=== PATIENT | male | born 1935 | race Caucasian/White ===

== ENCOUNTER → 2018-10-30 13:56 | Outpatient (POV) | payer MEDICARE, SELFPAY ==
[2018-10-30 14:16] VITALS: BP 141/77; PULSE 64; RESP 18; O2SAT 98; BMI 22.0
--- NOTE | 2018-10-30 15:08 | HMH.PMCON ---
Assessment and Plan (1) Lumbar back pain Current visit: Yes Status: Chronic Category: Medical Code(s): M54.5 - Low back pain - Assessment and plan all Dx Assessment and Plan for all problems:: After reviewing the patient's imaging and his efficacy with previous epidural injection, I think he would benefit from a lumbar epidural steroid injection. The patient is not on any anticoagulation therapy. We will schedule him for lumbar epidural steroid injection at L4 and L5. We will follow-up with him after the procedure and reassess his symptoms at that time. He will continue at home stretching program and anti-inflammatories. He is been instructed to call the office if he has any concerns prior to his next appointment. Dr. Maldonado has reviewed this note and agrees with this plan of care. This note was dictated using voice recognition software and make contain errors or omissions. HPI - Data of Consult Patient: new to practice Consult date: 10/30/18 Requesting Physician: Marlen Singer APRN Primary Care Provider: Samuel Mars - Consult Narrative Reason for consult: Back pain History of present illness: Mr. Lugo is a 83 year old male who presents today for referral from [facility]. Patient complains of low back pain radiating into his bilateral lower extremities. Patient says the pain is worse with standing and ambulating and improves with sitting. Patient does rate his pain an 8 out of 10 today. He states I thought I was seeing Dr. Maldonado today to get injective therapy . Patient says he has had epidural steroid injections in the past and they have been effective, along with RFA's. The patient says that he got 90% relief with epidural steroid injection, but the pain did return. Patient has tried physical therapy, ice and heat therapies, TENS unit, and had no relief. The patient is not on any anticoagulation therapy. CC: Marlen Singer APRN [facility] History I have reviewed the patient's past medical history: Yes Medical History: Reports:: Atrial Fibrillation, Myocardial Infarction Denies:: Diabetes Mellitus Type 1, Diabetes Mellitus Type 2 *Have you ever received a pneumonia vaccine?: Yes *Have you received a flu vaccine this season?: Yes Laterality Cases: Left: Arthroscopy Hip Other Surgeries: Yes: CABG, Open Heart Surgery - *Social History Smoking Status: Current every day smoker Tobacco Type: cigarettes # Packs/Day (cigarettes): 1 Alcohol Intake: never *Occupational Status:: other Housing: house Household Members: other *Travel in the last 8 weeks: None Family Hx:: Unable to obtain Review of Systems - Review of Systems Review of Systems General: No recent weight changes, no fever, no sleep disturbances Respiratory: No cough, no shortness of air, no recurring pulmonary infections Cardiovascular/peripheral vascular: No chest pain, no palpitations, no edema, no shortness of breath Gastrointestinal: No new onset incontinence, normal bowel movements reported Genitourinary: No new onset incontinence Musculoskeletal: Back pain, leg pain Psychiatric: Normal mood/affect Neurological: [Denies weakness in extremities], [denies balance issues] Meds Home Medications Medication Instructions Recorded Confirmed Type Aspirin [Aspir 81] 81 mg PO DAILY 10/30/18 10/30/18 History Atorvastatin Calcium [Atorvastatin 40 mg PO DAILY 10/30/18 10/30/18 History 40mg Tab] Carvedilol [Carvedilol 12.5mg Tab] 12.5 mg PO DAILY 10/30/18 10/30/18 History Hydrocodone/Acetaminophen 1 tab PO DAILY 10/30/18 10/30/18 History [Hydrocodone-Acetamin 7.5-325] Allergies Allergy/AdvReac Type Severity Reaction Status Date / Time Penicillins [PENICILLINS] Allergy Unknown Unverified 03/29/17 14:16 Sulfa (Sulfonamide Allergy Unknown Unverified 03/29/17 14:16 Antibiotics) [SULFA (SULFONAMIDE ANTIBIOTICS)] Objective Vital signs: Pulse Resp BP Pulse Ox 64 18 141/77 H 98 10/30
--- NOTE | 2018-10-30 15:12 | P.CONS_ITS ---
Assessment and Plan (1) Lumbar back pain Current visit: Yes Status: Chronic Category: Medical Code(s): M54.5 - Low back pain - Assessment and plan all Dx Assessment and Plan for all problems:: After reviewing the patient's imaging and his efficacy with previous epidural injection, I think he would benefit from a lumbar epidural steroid injection. The patient is not on any anticoagulation therapy. We will schedule him for lumbar epidural steroid injection at L4 and L5. We will follow-up with him after the procedure and reassess his symptoms at that time. He will continue at home stretching program and anti-inflammatories. He is been instructed to call the office if he has any concerns prior to his next appointment. Dr. Maldonado has reviewed this note and agrees with this plan of care. This note was dictated using voice recognition software and make contain errors or omissions. HPI - Data of Consult Patient: new to practice Consult date: 10/30/18 Requesting Physician: Marlen Singer APRN Primary Care Provider: Samuel Mars - Consult Narrative Reason for consult: Back pain History of present illness: Mr. Lugo is a 83 year old male who presents today for referral from Juan Carlos woodard. Patient complains of low back pain radiating into his bilateral lower extremities. Patient says the pain is worse with standing and ambulating and improves with sitting. Patient does rate his pain an 8 out of 10 today. He states I thought I was seeing Dr. Maldonado today to get injective therapy . Patient says he has had epidural steroid injections in the past and they have been effective, along with RFA's. The patient says that he got 90% relief with epidural steroid injection, but the pain did return. Patient has tried physical therapy, ice and heat therapies, TENS unit, and had no relief. The patient is not on any anticoagulation therapy. CC: Marlen Singer APRN [facility] History I have reviewed the patient's past medical history: Yes Medical History: Reports:: Atrial Fibrillation, Myocardial Infarction Denies:: Diabetes Mellitus Type 1, Diabetes Mellitus Type 2 *Have you ever received a pneumonia vaccine?: Yes *Have you received a flu vaccine this season?: Yes Laterality Cases: Left: Arthroscopy Hip Other Surgeries: Yes: CABG, Open Heart Surgery - *Social History Smoking Status: Current every day smoker Tobacco Type: cigarettes # Packs/Day (cigarettes): 1 Alcohol Intake: never *Occupational Status:: other Housing: house Household Members: other *Travel in the last 8 weeks: None Family Hx:: Unable to obtain Review of Systems - Review of Systems Review of Systems General: No recent weight changes, no fever, no sleep disturbances Respiratory: No cough, no shortness of air, no recurring pulmonary infections Cardiovascular/peripheral vascular: No chest pain, no palpitations, no edema, no shortness of breath Gastrointestinal: No new onset incontinence, normal bowel movements reported Genitourinary: No new onset incontinence Musculoskeletal: Back pain, leg pain Psychiatric: Normal mood/affect Neurological: [Denies weakness in extremities], [denies balance issues] Meds Home Medications Medication Instructions Recorded Confirmed Type Aspirin [Aspir 81] 81 mg PO DAILY 10/30/18 10/30/18 History Atorvastatin Calcium [Atorvastatin 40 mg PO DAILY 10/30/18 10/30/18 History 40mg Tab] Carvedilol [Carvedilol 12.5mg Tab] 12.5 mg PO DAILY 10/30/18 10/30/18 History Hy
== END ==
PROVIDERS: PCP Internal Medicine; Visit Provider Clinical Nurse Specialist Family Health
DX: M54.5 Low back pain (principal)
CPT/HCPCS: 99202

== ENCOUNTER 2019-12-18 09:20 | Emergency (ER) | payer MEDICARE, MEDICAID, SELFPAY ==
[2019-12-18] VITALS (11 sets, daily range): BP systolic 111–204; BP diastolic 76–96; PULSE 58–80; RESP 20–24; TEMP 36.9; O2SAT 87–98; BMI 20.9
--- NOTE | 2019-12-18 09:36 | XR_ITS ---
PROCEDURE: XR CHEST PORTABLE CLINICAL HISTORY: SOA Shortness of air COMPARISON: CT CT ANGIO CHEST from 12/18/2019 FINDINGS: Prior CABG with mild cardiomegaly. Extensive biapical pleural thickening left more extensive than right with scattered calcified granulomas. No lobar consolidation or collapse. No acute bony abnormalities. IMPRESSION: Biapical pleural thickening left greater than right with chronic changes Dictated by: Michoacano De León MD 12/18/2019 12:06 Michoacano De León MD in [place] 12/18/2019 12:06
--- NOTE | 2019-12-18 09:38 | PC.NURSE ---
notified rad of chest xray, spoke with ngozi
--- NOTE | 2019-12-18 09:44 | PC.NURSE ---
rad at [facility] for portable xray
--- NOTE | 2019-12-18 09:47 | PC.NURSE ---
pt reports pt is scheduled to see a Day Treatment Clinician/Art Therapist (Dr. Pisano) on Jan 01, states this will be an initial visit for pt.
[2019-12-18 09:49] LABS: Basophils % 0.2 % (0.1-2.0); Eosinophils # 0.3 K/mm3 (0.0-0.4); Eosinophils % 1.9 % (0.1-12.0); Hemoglobin 13.8 g/dL (14.1-18.0); Lymphocytes # 2.8 K/mm3 (0.7-4.5); Lymphocytes % 19.5 % (10-50); Mean Corpuscular HGB Conc 33.6 g/dL (31.8-35.4); Mean Corpuscular Hemoglobin 31.7 pg (27.0-31.2); Mean Corpuscular Volume 94.3 fl (80-94); Mean Platelet Volume 7.6 fl (7.4-10.4); Monocytes # 1.1 K/mm3 (0.1-1.0); Monocytes % 7.6 % (1.7-9.3); Neutrophils # 10.2 K/mm3 (1.8-7.8); Neutrophils % 70.9 % (37.0-80.0); Platelet Count 275 K/mm3 (142-424); Red Blood Count 4.34 M/mm3 (4.60-6.20); Red Cell Distribution Width 13.7 % (11.5-17.5); White Blood Count 14.3 K/mm3 (4.8-10.8)
[2019-12-18 09:55] LABS: Alanine Aminotransferase 16 U/L (12-78); Albumin Level 4.2 g/dl (3.5-5.0); Albumin/Globulin Ratio 1.3 (1.1-1.8); Alkaline Phosphatase 133 U/L (38-126); Anion Gap 12.8 mEq/L (5-15); Aspartate Amino Transferase 24 U/L (17-59); Bilirubin,Total 0.6 mg/dl (0.2-1.3); Blood Urea Nitrogen 20 mg/dl (9-20); Carbon Dioxide 32 mmol/L (22.0-30.0); Chloride 100 mmol/L (98-107); Creatinine Clearance Estimated 37 mL/min (50-200); Estimated Glomerular Filt Rate 48 ml/min (>60); GFR (African American) 59 ML/MIN (>60); Globulin 3.3 g/dL (1.3-3.2); Glucose 101 mg/dl (74-100); Potassium 3.8 mmoL/L (3.5-5.1); Sodium 141 mmol/L (136-145); Total Protein,Serum 7.5 g/dl (6.3-8.2)
[2019-12-18 09:57] LABS: Lactic Acid 1.3 mmol/L (0.7-2.1)
[2019-12-18 10:06] LABS: Troponin I 0.02 ng/ml (0.00-0.034)
--- NOTE | 2019-12-18 10:15 | CT_ITS ---
PROCEDURE: CT ANGIO CHEST CLINCIAL INDICATION: SOB COMPARISON: CT ABDPELW/O CT ABD PELVIS W/O CONTRAST from 06/02/2016 TECHNIQUE: IV Contrast: 70ML OPTIRAY 350 Axial images obtained with sagittal and coronal reformats. All CT scans at the facility use one or more dose reduction, viz: automated exposure control, ma/kV adjustment per patient size (including targeted exams where dose is matched to indication, i.e. head), or iterative reconstruction technique. FINDINGS: HEART AND MEDIASTINAL STRUCTURES: No evidence aortic aneurysm or dissection. There is diffuse coronary artery calcification. There are atheromatous changes involving the aortic arch and descending thoracic aorta with some shallow ulcerations. No evidence of pulmonary embolus. There has been a prior CABG. LUNGS AND PLEURAL SPACES: There is bi apical pleural thickening with consolidation in the lung apices which may be chronic. There are scattered areas of pleural and parenchymal opacities with subpleural in sub pleural thickening. There is some hilar retraction on the left. Scarring is present in the lung bases is well. There is a small cavity in the left apex medially at 1.6 cm. No pleural effusions. There is mild diffuse bronchial thickening. Patchy infiltrate is present in the left upper lobe posteriorly along the major fissure. Calcified granuloma is present in the right lower lobe and calcified granulomas are present in the right upper lobe. 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 UPPER ABDOMEN: There is mild dilatation of the upper abdominal aorta incompletely imaged measuring 2.5 cm. ADDITIONAL FINDINGS: No other significant abnormalities. IMPRESSION: 1. No evidence of aortic aneurysm dissection or pulmonary embolus. 2. Atheromatous changes of the thoracic aorta with scattered shallow ulcers and mild dilatation of the upper abdominal aorta at 2.5 cm incompletely imaged. 3. Pulmonary fibrosis with biapical pleural parenchymal thickening and left-sided hilar retraction with scattered areas of scarring. 4. Small cavity in the left apex medially of an determined etiology 5. Patchy infiltrate in the left upper lobe posteriorly. Dictated by: Michoacano De León MD 12/18/2019 12:04 Michoacano De León MD in [facility] 12/18/2019 12:04
--- NOTE | 2019-12-18 10:19 | PC.NURSE ---
notified rad of CT order notified RT of neb treatment order
--- NOTE | 2019-12-18 10:22 | HMH.EDPSOB ---
ED Disposition Clinical Impression: Acute exacerbation of chronic obstructive airways disease, Acute exacerbation of chronic obstructive pulmonary disease (COPD) Disposition: Still a Patient Condition on Discharge: Good Instructions: DI for Chronic Bronchitis Prescriptions: Azithromycin 250 mg PO DAILY 5 Days #6 tab Prescription Printed Ipratropium/Albuterol Sulfate [Duoneb 3mL neb] 3 ml IH Q6H 10 Days #90 neb Prescription Printed methylPREDNISolone [Medrol 4mg tab] 4 mg PO DIRECTED #21 tab Prescription Printed Cefdinir [Omnicef 300mg Capsule] 300 mg PO BID 10 Days #20 cap Prescription Printed Referrals: Samuel Mars [Primary Care Provider] - - Critical Care Critical Care Time: No Attestation: On 12/18/19, the high probability of a clinically significant, sudden or life threatening deterioration of the following system(s) required my full and direct attention, intervention and personal management. The time I documented below is in addition to time spent performing reported procedures but includes the following listed in this critical care notation. Medical Decision Making - Medical Records Medical records reviewed: Yes: I reviewed the patient's medical records. - Amadeo Inquiry Pt receiving controlled substance: No Vital Signs: 12/18/19 09:23 12/18/19 09:42 12/18/19 10:27 Temperature 98.5 F Temperature Source Oral Pulse Rate Pulse Rate [Right Radial] 63 77 Respiratory Rate 24 Blood Pressure [Right Arm] 133/93 H 150/91 H Blood Pressure Mean [Right Arm] 106 110 Blood Pressure Source [Right Arm] Automatic Cuff Automatic Cuff Blood Pressure Position [Right Arm] Sitting Sitting 02 Sat by Pulse Oximetry 93 L 98 96 Oxygen Delivery Method Room Air Nasal Cannula Nasal Cannula Oxygen Flow Rate (LPM) 2 2 12/18/19 10:30 12/18/19 10:35 12/18/19 11:16 Temperature Temperature Source Pulse Rate 63 Pulse Rate [Right Radial] 65 58 L Respiratory Rate Blood Pressure [Right Arm] 150/91 H 161/87 H Blood Pressure Mean [Right Arm] 110 111 Blood Pressure Source [Right Arm] Automatic Cuff Automatic Cuff Blood Pressure Position [Right Arm] Sitting Sitting 02 Sat by Pulse Oximetry 97 98 Oxygen Delivery Method Nasal Cannula Nasal Cannula Oxygen Flow Rate (LPM) 2 12/18/19 12:38 Temperature Temperature Source Pulse Rate Pulse Rate [Right Radial] 70 Respiratory Rate Blood Pressure [Right Arm] 204/95 H Blood Pressure Mean [Right Arm] 131 Blood Pressure Source [Right Arm] Automatic Cuff Blood Pressure Position [Right Arm] Sitting 02 Sat by Pulse Oximetry 92 L Oxygen Delivery Method Room Air Oxygen Flow Rate (LPM) - Lab Data Lab results reviewed: Yes: I reviewed the patient's lab results. Lab Results 12/18/19 09:30: WBC 14.3 H, RBC 4.34 L, Hgb 13.8 L, Hct 41.0 L, MCV 94.3 H, MCH 31.7 H, MCHC 33.6, RDW 13.7, Plt Count 275, MPV 7.6, Neut % (Auto) 70.9, Lymph % (Auto) 19.5, [place] % (Auto) 7.6, Eos % (Auto) 1.9, Baso % (Auto) 0.2, Neut # (Auto) 10.2 H, Lymph # (Auto) 2.8, [place] # (Auto) 1.1 H, Eos # (Auto) 0.3, Baso # (Auto) 0.0 12/18/19 09:30: Sodium 141, Potassium 3.8, Chloride 100, Carbon Dioxide 32 H, Anion Gap 12.8, BUN 20, Creatinine 1.40 H, Estimated Creat Clear 37, Estimated GFR 48 L, Est GFR ( Amer) 59, Glucose 101 H, Calcium 9.0, Total Bilirubin 0.6, AST 24, ALT 16, Alkaline Phosphatase 133 H, Troponin I 0.02, Total Protein 7.5, Albumin 4.2, Globulin 3.3 H, Albumin/Globulin Ratio 1.3 12/18/19 09:30: Lactate 1.3 12/18/19 09:30: SARS-CoV-2 IgG Ab (Rapid) Negative, SARS-CoV-2 IgM Ab (Rapid) Negative Result diagrams: 12/18/19 09:30 12/18/19 09:30 Orders (Tests/Meds): ED MEDICATIONS Generic Name Dose Route Start Last Admin Trade Name Freq PRN Reason Stop Dose Admin Sodium Chloride 500 mls @ 500 mls/hr 12/18/19 12:00 12/18/19 11:54 Sod Chlor 0.9% 500ml Bag IV 01/17/20 11:59 500 mls/hr .Q1H ZARINA Administration Ceftriaxone Sodium 1
--- NOTE | 2019-12-18 10:23 | ECG_ITS ---
APPROVED REPORT Exam: Resting ECG HR:59 bpm ECG Measurements Heart Rate 59 AXES MA 134 P 76 QRSd 92 QRS 41 QT 404 T 37 QTc 399 <Conclusion> Sinus bradycardia,Motion Artifact Otherwise normal ECG Electronically signed by : Cosmo Riggs, 12/18/2019 12:25:22
--- NOTE | 2019-12-18 10:31 | PC.NURSE ---
RESP HERE DOING DUO NEB
[2019-12-18 11:05] LABS: Coronavirus 19 IgG Antibody Negative (Negative); Coronavirus 19 IgM Antibody Negative (Negative)
--- NOTE | 2019-12-18 11:21 | PC.NURSE ---
Pt to rad.
--- NOTE | 2019-12-18 11:42 | PC.NURSE ---
pt return from radiology
--- NOTE | 2019-12-18 11:49 | PC.NURSE ---
Maame in radiology called requesting pt have IV fluids r/t creatinine and pt getting IV contrast. Notified ER MD, gave verbal order for IV fluids
--- NOTE | 2019-12-18 12:24 | PC.NURSE ---
notified ER pt CT result is in the computer
--- NOTE | 2019-12-18 12:44 | PC.NURSE ---
notified ER MD of pt BP, pt reports he took his medication this morning, states does not feel like his bp is up. No new orders obtained at this time will continue to monitor
--- NOTE | 2019-12-18 13:18 | PC.NURSE ---
Yuliet from care management at discussing home oxygen use with pt.
--- NOTE | 2019-12-18 13:20 | PC.NURSE ---
care management in with pt.
--- NOTE | 2019-12-18 13:38 | SW/DCPLANNER ---
Addendum entered by Yuliet [place] 12/18/19 15:18: Patient information was faxed to Monse Mohr at [facility] and she has stated information has been reviewed and oxygen will be delivered to patient in ED. Patient will discharge home from ED once o2 is delivered. Addendum entered by Yuliet [place] 12/18/19 14:48: Patient now has a qualifying room air at 87%. Sanjuana Stovall has stated that patient will need to change to outpatient setting and respiratory will read room air sat and we can then set patient up with home O2. Addendum entered by Yuliet [place] 12/18/19 14:26: I have spoke with Sanjuana Stovall and she has stated that she spoke with Radha at [facility] and once patient is discharged from ED: have ED MD put in order for an outpatient 6 minute walk test, send patient upstairs to register and complete walk test as an outpatient, if sats qualify Respiratory Dept will fax information to [facility] to order home O2 and if patient does NOT qualify then patients can pick pulling machine tender private pay home O2 at [facility] as explained earlier. Addendum entered by Yuliet [place] 12/18/19 14:05: Per ED staff (Kesha) patients has not had a room air below 90-92%. I have faxed patient information to [facility] and Monse Villalba has already spoke with patients regarding private pay. Original Note: I have spoke with [facility] regarding ordering home O2 for this patient. Jill/Monse Mohr with [facility] has stated that home O2 can NOT be ordered from Emergency Department and must go through their family MD. Patients family MD is out of [place]. Randy Mohr have stated that another option would be private pay for home concentrator $70/month and tank system $25/month. I have spoke with patient and his family regarding home O2. I had a lengthy conversation with patient and his regarding oxygen. I explained that patient can private pay for home O2 and/or make a follow up appointment with family MD to be ordered. I did provide family with pricing for private pay O2 and [facility] contact information. I have also explained this situation to ER MD and ER staff (Kesha).
--- NOTE | 2019-12-18 14:29 | PC.NURSE ---
spoke with rosanne in care management about outpatient 6 minute walk test after being discharged from the ER and pt will go to register for this an outpatient. information relayed to ER MD, ER MD is agreeable to plan
== END 2019-12-18 14:56 | disposition home or self-care (01) ==
PROVIDERS: Emergency Provider Family Medicine; PCP Internal Medicine
DX: J44.1 Chronic obstructive pulmonary disease with (acute) exacerbation (principal); Z01.84 Encounter for antibody response examination; I10 Essential (primary) hypertension; E78.5 Hyperlipidemia, unspecified; Z88.0 Allergy status to penicillin; Z88.5 Allergy status to narcotic agent
CPT/HCPCS: 71045; 71275; 80053; 83605; 84484; 85025; 86328; 87040; 93005; 96365; 96367; 96375; 99284; J0456; Q9967

== ENCOUNTER → 2019-12-18 15:16 | Outpatient (CLI) | payer MEDICARE, MEDICAID, SELFPAY ==
[2019-12-18 15:20] VITALS: O2SAT 87
== END ==
PROVIDERS: PCP Internal Medicine; Visit Provider Family Medicine
DX: R09.02 Hypoxemia (principal)

== ENCOUNTER 2020-07-12 08:51 | Emergency (ER) | payer MEDICARE, SELFPAY ==
[2020-07-12 08:52] VITALS: BP 104/104; PULSE 72; RESP 20; TEMP 36.6; O2SAT 89; BMI 19.9
--- NOTE | 2020-07-12 09:02 | ECG_ITS ---
APPROVED REPORT Exam: Resting ECG HR:73 bpm ECG Measurements Heart Rate 73 AXES IA 156 P 78 QRSd 90 QRS 65 QT 382 T 68 QTc 420 Conclusion Sinus rhythm with marked sinus arrhythmia with occasional premature ventricular complexes Otherwise normal ECG Electronically signed by : Ziggy Plascencia, 07/12/2020 14:39:04
--- NOTE | 2020-07-12 09:17 | XR_ITS ---
PROCEDURE: XR CHEST PORTABLE CLINICAL HISTORY: soa COMPARISON: CT CT ANGIO CHEST from 12/18/2019 CR XR CHEST PORTABLE from 12/18/2019 FINDINGS: There is hyperexpansion lung rose. There is prominent bilateral apical pleural scarring more prominent left side than right. Is mild parenchymal scarring right suprahilar region and right upper lobe. There is a partially calcified granuloma right perihilar region. There is no definite acute infiltrate seen. Cardiac size is normal, there are sternal wire sutures noted. IMPRESSION: Mild COPD with prominent bilateral apical pleural scarring with mild scarring right upper lobe as well, doubt acute chest pathology Dictated by: Dr. Sulaiman Mott MD 07/12/2020 09:39 Dr. Sulaiman Mott MD in [facility] 07/12/2020 09:39
[2020-07-12 09:32] VITALS: BP 147/98; PULSE 68; RESP 18; TEMP 36.6; O2SAT 95
--- NOTE | 2020-07-12 09:33 | HMH.EDGENADL ---
ED Disposition Clinical Impression: COPD exacerbation, Acute exacerbation of chronic obstructive airways disease Disposition: Home, Self-Care Condition on Discharge: Fair Instructions: DI for Chronic Obstructive Pulmonary Disease, DI for Shortness of Breath Additional Instructions: Please continue to use your albuterol inhaler as needed for shortness of breath. Please ensure to use 8 puffs to make it 1 breathing treatment. Please follow-up with your PCP in 3 to 5 days to ensure that your symptoms have improved Please take your medication as prescribed and if symptoms persist or worsen, if you continue to not improve or are having a harder time breathing, please return to the ED for further management Prescriptions: predniSONE [Prednisone 50mg Tab] 50 mg PO DAILY 5 Days #5 tab Prescription Printed Referrals: Samuel Mars [Primary Care Provider] - - Critical Care Critical Care Time: No Attestation: On 07/12/20, the high probability of a clinically significant, sudden or life threatening deterioration of the following system(s) required my full and direct attention, intervention and personal management. The time I documented below is in addition to time spent performing reported procedures but includes the following listed in this critical care notation. Medical Decision Making - Medical Records Medical records reviewed: Yes: I reviewed the patient's medical records. - Amadeo Inquiry Pt receiving controlled substance: No Vital Signs: 07/12/20 08:52 07/12/20 09:32 07/12/20 10:05 Temperature 97.9 F 97.9 F Temperature Source Oral Pulse Rate 68 66 Pulse Rate [Left Radial] 72 Respiratory Rate 20 18 16 Blood Pressure 147/98 H 161/82 H Blood Pressure [Right Arm] 104/104 L Blood Pressure Mean [Right Arm] 104 Blood Pressure Source Automatic Cuff Automatic Cuff Blood Pressure Source [Right Arm] Automatic Cuff Blood Pressure Position [Right Arm] Sitting 02 Sat by Pulse Oximetry 89 L 95 96 Oxygen Delivery Method Room Air Nasal Cannula Oxygen Flow Rate (LPM) 96 - Lab Data Lab Results 07/12/20 09:15: WBC 8.2, RBC 4.13 L, Hgb 12.2 L, Hct 40.7 L, MCV 98.4 H, MCH 29.5, MCHC 30.0 L, RDW 13.5, Plt Count 258, MPV 7.2 L, Neut % (Auto) 63.6, Lymph % (Auto) 22.2, [place] % (Auto) 5.4, Eos % (Auto) 7.5, Baso % (Auto) 1.3, Neut # (Auto) 5.2, Lymph # (Auto) 1.8, [place] # (Auto) 0.5, Eos # (Auto) 0.6 H, Baso # (Auto) 0.1 07/12/20 09:15: Sodium 141, Potassium 4.5, Chloride 104, Carbon Dioxide 30, Anion Gap 11.5, BUN 12, Creatinine 1.40 H, Estimated Creat Clear 35, Estimated GFR 48 L, Est GFR ( Amer) 58 L, Glucose 100, Calcium 9.0, Total Bilirubin 0.4, AST 20, ALT 8 L, Alkaline Phosphatase 122, Troponin I < 0.01, Total Protein 7.5, Albumin 4.4, Globulin 3.1, Albumin/Globulin Ratio 1.4 07/12/20 09:46: VBG pH 7.24 L, VBG pCO2 68.7 H, VBG pO2 27.8 L, VBG HCO3 28.8, VBG Total CO2 30.9 H, VBG O2 Saturation 51.2, VBG Base Excess 1.4 Result diagrams: 07/12/20 09:15 07/12/20 09:15 Orders (Tests/Meds): ED MEDICATIONS Generic Name Dose Route Start Last Admin Trade Name Freq PRN Reason Stop Dose Admin Methylprednisolone Sodium Succinate 125 mg 07/12/20 09:30 07/12/20 09:27 Methylprednisolone Sod Succ 125mg Vial IV 08/11/20 09:29 125 mg Q12H ZARINA Administration Discontinued Medications Generic Name Dose Route Start Last Admin Trade Name Freq PRN Reason Stop Dose Admin Albuterol/Ipratropium 8 puff 07/12/20 09:19 07/12/20 09:50 Combivent 20mcg/100mcg Respimat Inhaler IH 07/12/20 09:20 8 puff ONCE ONE Administration Miscellaneous 1 unit 07/12/20 09:19 Aerochamber/Optihaler MC 07/12/20 09:20 ONCE ONE ORDERS Category Date Time Status Troponin I Q3H Lab 07/12/20 12:30 Ordered Troponin I Q3H Lab 07/12/20 15:30 Ordered Medical Decision Narrative: Patient is an 85-year-old male with a history of COPD presenting with 1 week of shortness of breath and diffuse wheezes o
[2020-07-12 09:49] LABS: Basophils # 0.1 K/mm3 (0-0.2); Basophils % 1.3 % (0.1-2.0); Eosinophils # 0.6 K/mm3 (0.0-0.4); Eosinophils % 7.5 % (0.1-12.0); Hematocrit 40.7 % (42.0-52.0); Hemoglobin 12.2 g/dL (14.1-18.0); Lymphocytes # 1.8 K/mm3 (0.7-4.5); Lymphocytes % 22.2 % (10-50); Mean Corpuscular Hemoglobin 29.5 pg (27.0-31.2); Mean Corpuscular Volume 98.4 fl (80-94); Mean Platelet Volume 7.2 fl (7.4-10.4); Monocytes # 0.5 K/mm3 (0.1-1.0); Monocytes % 5.4 % (1.7-9.3); Neutrophils # 5.2 K/mm3 (1.8-7.8); Neutrophils % 63.6 % (37.0-80.0); Platelet Count 258 K/mm3 (142-424); Red Blood Count 4.13 M/mm3 (4.60-6.20); Red Cell Distribution Width 13.5 % (11.5-17.5); White Blood Count 8.2 K/mm3 (4.8-10.8)
[2020-07-12 09:52] LABS: Chloride 104 mmol/L (98-107); Sodium 141 mmol/L (136-145)
[2020-07-12 09:53] LABS: Potassium 4.5 mmoL/L (3.5-5.1)
[2020-07-12 09:55] LABS: Alanine Aminotransferase 8 U/L (12-78); Alkaline Phosphatase 122 U/L (38-126); Anion Gap 11.5 mEq/L (5-15); Aspartate Amino Transferase 20 U/L (17-59); Bilirubin,Total 0.4 mg/dl (0.2-1.3); Blood Urea Nitrogen 12 mg/dl (9-20); Carbon Dioxide 30 mmol/L (22.0-30.0); Creatinine Clearance Estimated 35 mL/min (50-200); Estimated Glomerular Filt Rate 48 ml/min (>60); GFR (African American) 58 ML/MIN (>60)
[2020-07-12 09:56] LABS: Albumin Level 4.4 g/dl (3.5-5.0); Albumin/Globulin Ratio 1.4 (1.1-1.8); Globulin 3.1 g/dL (1.3-3.2); Glucose 100 mg/dl (74-100); Total Protein,Serum 7.5 g/dl (6.3-8.2)
[2020-07-12 10:03] LABS: VBG Base Excess 1.4 mmol/L (-2.4-2.3); VBG HCO3 28.8 mmol/L (23-30); VBG Oxygen Saturation 51.2 % (50-70); VBG PCO2 68.7 mmol/L (35-51); VBG PH 7.24 mmol/L (7.31-7.41); VBG PO2 27.8 mmol/L (28-40); VBG Total CO2 30.9 mmol/L (23-27)
[2020-07-12 10:05] VITALS: BP 161/82; PULSE 66; RESP 16; O2SAT 96
[2020-07-12 10:11] LABS: Troponin I < 0.01 ng/ml (0.00-0.034)
--- NOTE | 2020-07-12 10:21 | PC.NURSE ---
dr on the phone with dr. knight about admit
[2020-07-12 11:15] VITALS: BP 122/96; PULSE 69; RESP 20; TEMP 36.6; O2SAT 96
== END 2020-07-12 11:17 | disposition home or self-care (01) ==
PROVIDERS: Emergency Provider Emergency Medicine; PCP Internal Medicine
DX: J44.1 Chronic obstructive pulmonary disease with (acute) exacerbation (principal); I10 Essential (primary) hypertension; E78.5 Hyperlipidemia, unspecified; I25.2 Old myocardial infarction; I48.91 Unspecified atrial fibrillation; Z87.891 Personal history of nicotine dependence; Z79.899 Other long term (current) drug therapy; Z88.0 Allergy status to penicillin; Z88.2 Allergy status to sulfonamides
CPT/HCPCS: 71045; 80053; 82803; 84484; 85025; 93005; 96374; 99282

== ENCOUNTER 2020-07-16 13:57 | Observation (INO) | payer MEDICARE, SELFPAY ==
[2020-07-16] VITALS (11 sets, daily range): BP systolic 139–203; BP diastolic 68–103; PULSE 60–85; RESP 16–24; TEMP 36.6–36.7; O2SAT 91–100; BMI 19.6
--- NOTE | 2020-07-16 14:12 | XR_ITS ---
PROCEDURE: XR CHEST 2V CLINICAL HISTORY: soa Shortness of air COMPARISON: CT CT ANGIO CHEST from 12/18/2019 CR XR CHEST PORTABLE from 12/18/2019 CR XR CHEST PORTABLE from 07/12/2020 FINDINGS: Prior median sternotomy. Normal heart size. There is biapical pleural thickening with fibro nodular changes in the right apex. The mid lower lung zones have an unremarkable appearance. COPD changes. Mild kyphosis of the thoracic spine with ankylosis. No acute bony abnormalities. IMPRESSION: COPD with chronic changes, no acute finding. Dictated by: Michoacano De León MD 07/16/2020 16:16 Michoacano De León MD in [place] 07/16/2020 16:16
--- NOTE | 2020-07-16 14:17 | ECG_ITS ---
APPROVED REPORT Exam: Resting ECG HR:72 bpm ECG Measurements Heart Rate 72 AXES TX 136 P 81 QRSd 92 QRS 40 QT 374 T 62 QTc 409 Conclusion Sinus rhythm with marked sinus arrhythmia Otherwise normal ECG Electronically signed by : Ziggy Plascencia, 07/17/2020 17:32:40
--- NOTE | 2020-07-16 14:44 | HMH.EDGENADL ---
ED Disposition Clinical Impression: COPD (chronic obstructive pulmonary disease) Disposition: Admitted As Inpatient Condition on Discharge: Good Referrals: Samuel Mars [Primary Care Provider] - - Critical Care Critical Care Time: No Attestation: On 07/16/20, the high probability of a clinically significant, sudden or life threatening deterioration of the following system(s) required my full and direct attention, intervention and personal management. The time I documented below is in addition to time spent performing reported procedures but includes the following listed in this critical care notation. Medical Decision Making - Medical Records Medical records reviewed: Yes: I reviewed the patient's medical records. - Amadeo Inquiry Pt receiving controlled substance: No Vital Signs: 07/16/20 13:58 07/16/20 14:07 07/16/20 14:30 Temperature 97.9 F 97.9 F Temperature Source Oral Oral Pulse Rate 72 Pulse Rate [Left Radial] 84 84 Respiratory Rate 18 18 Blood Pressure 188/86 H Blood Pressure [Right Arm] 160/87 H 160/87 H Blood Pressure Mean 99 Blood Pressure Mean [Right Arm] 111 111 Blood Pressure Source [Right Arm] Automatic Cuff Automatic Cuff Blood Pressure Position [Right Arm] Sitting Sitting 02 Sat by Pulse Oximetry 91 L 91 L 95 Oxygen Delivery Method Room Air Room Air - Lab Data Lab Results 07/16/20 14:20: Sodium 135 L, Potassium 3.9, Chloride 100, Carbon Dioxide 26, Anion Gap 12.9, BUN 21 H, Creatinine 1.30 H, Estimated Creat Clear 38, Estimated GFR 53 L, Est GFR ( Amer) 64, Glucose 190 H, Calcium 8.6, Troponin I < 0.01 07/16/20 14:34: VBG pH 7.34, VBG pCO2 51.0, VBG pO2 61.9 H, VBG HCO3 26.8, VBG Total CO2 28.4 H, VBG O2 Saturation 91.0 H, VBG Base Excess 1.0 07/16/20 15:12: WBC 17.7 H, RBC 3.87 L, Hgb 12.1 L, Hct 36.9 L, MCV 95.3 H, MCH 31.2, MCHC 32.7, RDW 13.8, Plt Count 235, MPV 7.9, Neut % (Auto) 91.2 H, Lymph % (Auto) 3.4 L, [place] % (Auto) 5.2, Eos % (Auto) 0.1, Baso % (Auto) 0.1, Neut # (Auto) 16.1 H, Lymph # (Auto) 0.6 L, [place] # (Auto) 0.9, Eos # (Auto) 0.0, Baso # (Auto) 0.0, Total Counted 100, Neutrophils % (Manual) 92 H, Lymphocytes % (Manual) 5 L, Monocytes % (Manual) 3, Platelet Estimate Normal, RBC Morphology Normal Result diagrams: 07/16/20 15:12 07/16/20 14:20 Orders (Tests/Meds): ED MEDICATIONS Generic Name Dose Route Start Last Admin Trade Name Freq PRN Reason Stop Dose Admin Acetaminophen 650 mg 07/16/20 16:04 Acetaminophen 325mg Tab PO 08/15/20 16:03 Q4HP PRN As Needed for Fever or Pain Enoxaparin Sodium 40 mg 07/16/20 16:15 Enoxaparin 40mg/0.4ml Syringe SQ 08/15/20 16:14 DAILY ZARINA Azithromycin 500 mg/ Sodium 250 mls @ 250 mls/hr 07/16/20 15:00 07/16/20 15:39 Chloride IV 07/30/20 14:59 250 mls/hr Q24H ZARINA Administration Protocol Discontinued Medications Generic Name Dose Route Start Last Admin Trade Name Freq PRN Reason Stop Dose Admin Albuterol/Ipratropium 3 ml 07/16/20 14:45 07/16/20 15:48 Ipratropium/Albuterol 3 Ml Neb 08/15/20 14:44 Not Given Q1H ZARINA Prednisone 60 mg 07/16/20 14:34 07/16/20 15:39 Prednisone 20mg Tab PO 07/16/20 14:35 60 mg ONCE ONE Administration ORDERS Category Date Time Status XR chest 2V Stat Exams 07/16/20 14:12 Taken Basic Metabolic Panel [facility] Lab 07/17/20 06:00 Ordered Complete Blood Count Auto Diff [facility]AB Lab 07/17/20 06:00 Ordered Lipid Panel [facility] Lab 07/17/20 06:00 Ordered Magnesium [facility] Lab 07/17/20 06:00 Ordered Phosphorous [facility] Lab 07/17/20 06:00 Ordered Troponin I Q3H Lab 07/16/20 17:15 Ordered Troponin I Q3H Lab 07/16/20 20:15 Ordered Blood Culture Stat Micro 07/16/20 14:47 Ordered Medical Decision Narrative: 85-year-old male presents with COPD exacerbation again. He has been worsening at home. At this point he is able to speak in full sentences between breaths. However he is tachypneic. No other concern fo
[2020-07-16 14:58] LABS: Anion Gap 12.9 mEq/L (5-15); Blood Urea Nitrogen 21 mg/dl (9-20); Calcium 8.6 mg/dl (8.4-10.2); Carbon Dioxide 26 mmol/L (22.0-30.0); Chloride 100 mmol/L (98-107); Creatinine Clearance Estimated 38 mL/min (50-200); Estimated Glomerular Filt Rate 53 ml/min (>60); GFR (African American) 64 ML/MIN (>60); Glucose 190 mg/dl (74-100); Potassium 3.9 mmoL/L (3.5-5.1); Sodium 135 mmol/L (136-145)
[2020-07-16 15:11] LABS: Troponin I < 0.01 ng/ml (0.00-0.034)
[2020-07-16 15:25] LABS: Basophils % 0.1 % (0.1-2.0); Eosinophils % 0.1 % (0.1-12.0); Hematocrit 36.9 % (42.0-52.0); Hemoglobin 12.1 g/dL (14.1-18.0); Lymphocytes # 0.6 K/mm3 (0.7-4.5); Lymphocytes % 3.4 % (10-50); Mean Corpuscular HGB Conc 32.7 g/dL (31.8-35.4); Mean Corpuscular Hemoglobin 31.2 pg (27.0-31.2); Mean Corpuscular Volume 95.3 fl (80-94); Mean Platelet Volume 7.9 fl (7.4-10.4); Monocytes # 0.9 K/mm3 (0.1-1.0); Monocytes % 5.2 % (1.7-9.3); Neutrophils # 16.1 K/mm3 (1.8-7.8); Neutrophils % 91.2 % (37.0-80.0); Platelet Count 235 K/mm3 (142-424); Red Blood Count 3.87 M/mm3 (4.60-6.20); Red Cell Distribution Width 13.8 % (11.5-17.5); White Blood Count 17.7 K/mm3 (4.8-10.8)
[2020-07-16 15:28] LABS: MANUAL DIFFERENTIAL MANUAL DIFFERENTIAL (MANUAL DIFF)
[2020-07-16 15:49] LABS: Lymphocytes % 5 % (10-50); Monocytes % 3 % (2-9); Neutrophils % 92 % (42-76); Platelet Estimate Normal; RBC Morphology Normal; Total Cells Counted 100
[2020-07-16 15:56] LABS: VBG HCO3 26.8 mmol/L (23-30); VBG PH 7.34 mmol/L (7.31-7.41); VBG PO2 61.9 mmol/L (28-40); VBG Total CO2 28.4 mmol/L (23-27)
--- NOTE | 2020-07-16 16:00 | PC.NURSE ---
Dr Thai morrison
--- NOTE | 2020-07-16 16:02 | PC.NURSE ---
speaking with Dr Plascencia
[2020-07-16 16:25] LABS: Adenovirus,PCR Not Detected (NotDetected); Bordetella Pertussis Not Detected (NotDetected); Chlamydophila Pneumoniae, PCR Not Detected (NotDetected); Coronavirus 19, PCR Not Detected (NotDetected); Coronavirus 229E Not Detected (NotDetected); Coronavirus NL63 Not Detected (NotDetected); Coronavirus OC43 Not Detected (NotDetected); Coronovirus HKU1,PCR Not Detected (NotDetected); Human Metapneumovirus Not Detected (NotDetected); Influenza A, PCR Not Detected (NotDetected); Influenza AH1, 2009 Not Detected (NotDetected); Influenza AH1, PCR Not Detected (NotDetected); Influenza AH3,PCR Not Detected (NotDetected); Influenza B, PCR Not Detected (NotDetected); Mycoplasma Pneumoniae, PCR Not Detected (NotDetected); Parainfluenza 1, PCR Not Detected (NotDetected); Parainfluenza 2, PCR Not Detected (NotDetected); Parainfluenza 3, PCR Not Detected (NotDetected); Parainfluenza 4, PCR Not Detected (NotDetected); Respiratory Syncytial Virus Not Detected (NotDetected); Rhinovirus/Enterovirus Not Detected (NotDetected)
--- NOTE | 2020-07-16 17:23 | PC.NURSE ---
per lab approx 36 mins left on covid swab for result
--- NOTE | 2020-07-16 18:05 | PC.NURSE ---
lab called advising covid test failed it was going to be repeated
[2020-07-16 18:32] LABS: Troponin I < 0.01 ng/ml (0.00-0.034)
--- NOTE | 2020-07-16 18:52 | PC.NURSE ---
pt given sandwich and coffee
--- NOTE | 2020-07-16 20:02 | PC.NURSE ---
patient up to floor via wheelchair.
[2020-07-16 20:21] LABS: Troponin I < 0.01 ng/ml (0.00-0.034)
[2020-07-17] VITALS (8 sets, daily range): BP systolic 155–189; BP diastolic 58–91; PULSE 57–80; RESP 18–22; TEMP 36.6–36.7; O2SAT 90–98; BMI 19.6
--- NOTE | 2020-07-17 05:58 | PC.NURSE ---
Pt has c/o soa at times this shift. He has also c/o chronic pain and not able to sleep. was contacted this evening. New orders received and carried out. Pt is currently on 2L O2 NC. VSS. Lungs noted to have rhonchi with scattered wheezing. Medications administered per jun. No other concerns at this time. Will continue to monitor.
[2020-07-17 06:56] LABS: Eosinophils % 0.1 % (0.1-12.0); Hematocrit 37.5 % (42.0-52.0); Hemoglobin 12.5 g/dL (14.1-18.0); Lymphocytes # 0.7 K/mm3 (0.7-4.5); Lymphocytes % 4.4 % (10-50); Mean Corpuscular HGB Conc 33.4 g/dL (31.8-35.4); Mean Corpuscular Hemoglobin 31.4 pg (27.0-31.2); Mean Platelet Volume 7.5 fl (7.4-10.4); Monocytes # 0.5 K/mm3 (0.1-1.0); Monocytes % 3.3 % (1.7-9.3); Neutrophils # 15.1 K/mm3 (1.8-7.8); Neutrophils % 92.2 % (37.0-80.0); Platelet Count 245 K/mm3 (142-424); Red Blood Count 3.99 M/mm3 (4.60-6.20); White Blood Count 16.4 K/mm3 (4.8-10.8)
[2020-07-17 06:58] LABS: Chloride 103 mmol/L (98-107)
[2020-07-17 06:59] LABS: Potassium 4.6 mmoL/L (3.5-5.1); Sodium 138 mmol/L (136-145)
[2020-07-17 07:01] LABS: Blood Urea Nitrogen 21 mg/dl (9-20); Creatinine Clearance Estimated 37 mL/min (50-200); Estimated Glomerular Filt Rate 53 ml/min (>60); GFR (African American) 64 ML/MIN (>60)
[2020-07-17 07:02] LABS: Anion Gap 10.6 mEq/L (5-15); Calcium 8.9 mg/dl (8.4-10.2); Carbon Dioxide 29 mmol/L (22.0-30.0); Cholesterol 128 mg/dl (140-200); Glucose 157 mg/dl (74-100); HDL Cholesterol 65 mg/dl (40-60); MANUAL DIFFERENTIAL MANUAL DIFFERENTIAL (MANUAL DIFF); Magnesium 1.8 mg/dl (1.6-2.3); Phosphorous 2.6 mg/dl (2.5-4.5); Triglycerides 72 mg/dl (30-150); VLDL Cholesterol 14 mg/dL (0-40)
[2020-07-17 07:13] LABS: Direct LDL Cholesterol 39.61 mg/dL (100-129)
--- NOTE | 2020-07-17 07:18 | P.CONPHA_ITS ---
[facility] Pharmacy VTE Monitoring - Patient Demographics Admission date: 07/16/20 Report Date: 07/17/20 Time: 07:18 Allergies/Adverse Reactions: Patient Allergies Penicillins [PENICILLINS] Allergy (Unknown, Verified 12/18/19 09:41) Sulfa (Sulfonamide Antibiotics) [SULFA (SULFONAMIDE ANTIBIOTICS)] Allergy (Unknown, Verified 12/18/19 09:41) Height: 1.78 m Weight: 62.227 kg Patient Problems: Current Active Problems COPD (chronic obstructive pulmonary disease) (Acute) - VTE Risk Labs: VTE Related Lab Results Hgb 12.5 g/dL (14.1-18.0) L 07/17/20 06:28 Hct 37.5 % (42.0-52.0) L 07/17/20 06:28 Plt Count 245 K/mm3 (142-424) 07/17/20 06:28 BUN 21 mg/dl (9-20) H 07/17/20 06:28 Creatinine 1.30 mg/dl (0.66-1.25) H 07/17/20 06:28 Estimated Creat Clear 37 mL/min (50-200) 07/17/20 06:28 - Prophylaxis VTE Prophylaxis Ordered?: Yes Types of VTE Prophylaxis: TEDS Knee High, Pharmacological Location of Applied Device: Bilateral Lower Extremeties Pharmacologic Type: Enoxaparin
--- NOTE | 2020-07-17 08:49 | HMH.HP ---
*Admission Date: 07/16/20 *Chief complaint: Cough/chest tightness *History of present illness: 85-year-old male with history of COPD presents with COPD exacerbation that has worsened over the last few days. He says that he was here earlier this week and was supposed to be admitted for COPD however he decided to go home. He has had worsening shortness of air and mild cough as well. 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 He does deny fever vomiting chest pain abdominal pain. He says he has been taking his steroids as recommended no chills. Above note per ER physician. Patient has been to the ER twice in the past 3 days. Although was placed on prednisone did not improve much, very tight in his chest, has some nausea and early satiety because of his chest tightness does report chest pain but does not endorse angina, states that it is different from his heart pain and its because my lungs are tight. Does note this morning that he feels better after 1 night of steroids intravenously. [facility] History I have reviewed the patient's past medical history: Yes Medical History: Reports:: Atrial Fibrillation, Chronic Obstructive Pulmonary Disease (COPD), Hyperlipidemia, Hypertension, Myocardial Infarction Denies:: Cancer, Diabetes Mellitus Type 1, Diabetes Mellitus Type 2, MRSA, Seizures *Have you ever received a pneumonia vaccine?: No *Have you received a flu vaccine this season?: No Laterality Cases: Left: Arthroscopy Hip Other Surgeries: Yes: CABG, Cardiac Catheterization, Cardiac Surgery, Open Heart Surgery Amputation: No - *Social History Smoking Status: Former smoker Tobacco Type: cigarettes # Packs/Day (cigarettes): 1 Alcohol Intake: former *Occupational Status:: retired Housing: house Household Members: spouse, other *Travel in the last 8 weeks: None Family Hx:: Coronary Artery Disease, Heart Attack, Hyperlipidemia, Hypertension Review of Systems - Review of Systems Review of systems:: pertinent systems reviewed and negative unless documented below - *Neurologic Denies dizziness, Denies headache(s), Denies numbness, Denies sensory deficit, Denies weakness Meds Home Medications Medication Instructions Recorded Confirmed Type Aspirin [Aspir 81] 81 mg PO DAILY 10/30/18 12/18/19 History Atorvastatin Calcium [Atorvastatin 40 mg PO HS 10/30/18 07/17/20 History 40mg Tab] Hydrocodone/Acetaminophen 1 tab PO Q6HP PRN 10/30/18 07/16/20 History [Hydrocodone-Acetamin 7.5-325] Ipratropium/Albuterol Sulfate 2 puffs IH QID PRN 07/16/20 07/16/20 History [Combivent Respimat Inh] Ipratropium/Albuterol Sulfate 3 ml IH Q6H PRN 07/16/20 History [Duoneb 3mL neb] carvediloL [Carvedilol 6.25mg Tab] 6.25 mg PO BID 07/17/20 07/17/20 History lisinopriL [Lisinopril] 10 mg PO DAILY 07/17/20 07/17/20 History Allergies Allergy/AdvReac Type Severity Reaction Status Date / Time Penicillins [PENICILLINS] Allergy Unknown Verified 12/18/19 09:41 Sulfa (Sulfonamide Allergy Unknown Verified 12/18/19 09:41 Antibiotics) [SULFA (SULFONAMIDE ANTIBIOTICS)] Exam Vital signs and Labs for Last 24 Hours: Temp Pulse Resp BP Pulse Ox 98.1 F 66 20 175/79 H 98 07/17/20 04:00 07/17/20 06:15 07/17/20 04:00 07/17/20 04:00 07/17/20 06:15 Laboratory Results - last 24 hr 07/16/20 14:20: Sodium 135 L, Potassium 3.9, Chloride 100, Carbon Dioxide 26, Anion Gap 12.9, BUN 21 H, Creatinine 1.30 H, Estimated Creat Clear 38, Estimated GFR 53 L, Est GFR ( Amer) 64, Glucose 190 H, Calcium 8.6, Troponin I < 0.01 07/16/20 14:34: VBG pH 7.34, VBG pCO2 51.0, VBG pO2 61.9 H, VBG HCO3 26.8, VBG Total CO2 28.4 H, VBG O2 Saturation 91.0 H, VBG Base Excess 1.0 07/16/20 15:12: WBC 17.7 H, RBC 3.87 L, Hgb 12.1 L, Hct 36.9 L, MCV 95.3 H, MCH 31.2, MCHC 32.7, RDW 13.8, Plt Count 235, MPV 7.9, Neut % (Auto) 91.2 H, Lymph % (Auto) 3.4 L, [place] % (A
[2020-07-17 08:54] LABS: Lymphocytes % 7 % (10-50); Monocytes % 3 % (2-9); Neutrophils % 90 % (42-76); Total Cells Counted 100
[2020-07-17 08:55] LABS: Platelet Estimate Normal; RBC Morphology Normal
--- NOTE | 2020-07-17 09:39 | HMH.PHAINT ---
MEDICATION RECONCILIATION COMPLETED USING PATIENT INTERVIEW AND EXTERNAL MEDICATION HISTORY
--- NOTE | 2020-07-17 18:46 | PC.NURSE ---
PT HAS REPORTED SOME SOA WHEN AMBULATING TO THE BATHROOM, BUT RECOVERS QUICKLY. NO PAIN REPORTED. FAMILY HAS BEEN AT BEDSIDE ALL DAY. VSS. CALL H[facility]LEY WITHIN REACH. WILL CONT. TO MONITOR.
[2020-07-18] VITALS (12 sets, daily range): BP systolic 138–187; BP diastolic 75–90; PULSE 60–81; RESP 16–24; TEMP 36.4–36.9; O2SAT 91–93; BMI 19.6
--- NOTE | 2020-07-18 04:58 | PC.NURSE ---
Pt is pleasant. States this am that he has slept better this then he has since he has been here. He states he got an hour of sleep. He continues to c/o soa and chest tightness. Pt has requested breathing tx. Lungs are noted to have rhonchi and wheezing t/o. Pt is currently on 2.5 L O2 NC. Medications administered per jun. BP is elevated this shift. Pt is awake at this time and eating ice cream. No other concerns. Will continue to monitor.
--- NOTE | 2020-07-18 07:39 | P.PN_ITS ---
Internal Medicine - PN: Subj *Date: 07/18/20 *Time: 07:39 Interval history: Patient feels slightly better, is frustrated that he is not improving more quickly. Exam Vital signs and Labs for Last 24 Hours: Temp Pulse Resp BP Pulse Ox 97.8 F 78 24 180/90 H 93 L 07/18/20 03:52 07/18/20 06:28 07/18/20 03:52 07/18/20 03:52 07/18/20 06:28 Laboratory Results - last 24 hr 07/17/20 06:28: Total Counted 100, Neutrophils % (Manual) 90 H, Lymphocytes % (Manual) 7 L, Monocytes % (Manual) 3, Platelet Estimate Normal, RBC Morphology Normal I & O for Last 24 hours: Intake & Output 07/15/20 07/16/20 07/17/20 07/18/20 11:59 11:59 11:59 11:59 Intake Total 490 / 490 420 / 420 Output Total 0 / 0 Balance 490 / 490 420 / 420 Weight 137 lb 3 oz 137 lb 8 oz Microbiology Reports for the Last 24 Hours: Microbiology 07/17/20 Unknown Sputum - Expectorated Sputum Gram Stain - Final 07/17/20 Unknown Sputum - Expectorated Sputum Sputum Culture - Final Narrative: Patient is alert, pleasant, talkative, wheezing is much more apparent, indicative of better air entry. No crackles, scattered rhonchi. Heart rate regular, abdomen soft, oriented x3. Assessment and Plan (1) COPD (chronic obstructive pulmonary disease) Status: Acute Category: Medical Code(s): J44.9 - Chronic obstructive pulmona ry disease, unspecified (2) Acute exacerbation of chronic obstructive pulmonary disease (COPD) Status: Acute Category: Medical Code(s): J44.1 - Chronic obstructive pulmonary disease with (acute) exacerbation - Assessment and plan all Dx Assessment and Plan for all problems:: Slow improvement. Continue current management. Patient reassured that the exacerbation of this severity will take some time.
--- NOTE | 2020-07-18 14:22 | SW/DCPLANNER ---
PATIENT ADMITTED TO [facility] WITH AN ACUTE EXACERBATION OF COPD.. PATIENT WAS SEEN EARLIER IN THE WEEK BY HIS MD AND IT WAS RECOMMENDED HE BE ADMITTED TO THE HOSPITAL AND HE REFUSED AND SHOWED UP IN THE ED AND NOT BEING ABLE TO BREATH.. PATIENT WAS ADMITTED, PATIENT RESIDES AT HOME WITH AND HAVE MANAGED VERY WELL.. THE PLAN IS FOR PATIENT TO COMPLETE HIS TX PLAN AND DISCHARGE HOME PRIOR TO COMING IN TO THE HOSPITAL AT THIS TIME THERE ARE NO ORDERS FOR ANY HOME CARE.... IF THIS CHANGES ANYTHING IT WILL BE SET UP AT TIME OF DISPOSITION...
--- NOTE | 2020-07-18 20:28 | PC.NURSE ---
No acute changes this shift. Pt alert and oriented and able x 3 to make needs known. CB in reach. intermittently here this shift. Pt does have exertional soa. 02 remains in low 90's on 3 L NC. Meds per jun. Wheezes/rhonchi scattered lung rose. Continues on tele.
[2020-07-19] VITALS (14 sets, daily range): BP systolic 143–182; BP diastolic 71–98; PULSE 60–91; RESP 18–22; TEMP 36.3–37; O2SAT 89–93; BMI 19.5
--- NOTE | 2020-07-19 05:50 | PC.NURSE ---
PT alert and oriented X 4. BP elevated with Dynamap, manual B/P taken at 0430 160/80. Patient in no acute distress. Pt highly anxious regarding his condition (COPD). Sats in low 90's Patient requesting NEB/ Breathing Tx throughout the night. Will continue to monitor.
[2020-07-19 07:15] LABS: Basophils % 0.1 % (0.1-2.0); Eosinophils % 0.1 % (0.1-12.0); Hematocrit 39.4 % (42.0-52.0); Hemoglobin 12.8 g/dL (14.1-18.0); Lymphocytes # 0.8 K/mm3 (0.7-4.5); Mean Corpuscular HGB Conc 32.4 g/dL (31.8-35.4); Mean Corpuscular Hemoglobin 30.5 pg (27.0-31.2); Mean Corpuscular Volume 94.1 fl (80-94); Mean Platelet Volume 7.4 fl (7.4-10.4); Monocytes % 4.9 % (1.7-9.3); Neutrophils # 18.3 K/mm3 (1.8-7.8); Platelet Count 249 K/mm3 (142-424); Red Blood Count 4.19 M/mm3 (4.60-6.20); Red Cell Distribution Width 13.9 % (11.5-17.5); White Blood Count 20.1 K/mm3 (4.8-10.8)
[2020-07-19 07:21] LABS: Chloride 98 mmol/L (98-107); Potassium 4.2 mmoL/L (3.5-5.1); Sodium 134 mmol/L (136-145)
[2020-07-19 07:24] LABS: Alanine Aminotransferase 19 U/L (12-78); Albumin Level 3.6 g/dl (3.5-5.0); Albumin/Globulin Ratio 1.4 (1.1-1.8); Alkaline Phosphatase 101 U/L (38-126); Anion Gap 9.2 mEq/L (5-15); Aspartate Amino Transferase 21 U/L (17-59); Bilirubin,Total 0.4 mg/dl (0.2-1.3); Blood Urea Nitrogen 30 mg/dl (9-20); Calcium 8.6 mg/dl (8.4-10.2); Carbon Dioxide 31 mmol/L (22.0-30.0); Creatinine Clearance Estimated 40 mL/min (50-200); Estimated Glomerular Filt Rate 58 ml/min (>60); GFR (African American) 70 ML/MIN (>60); Globulin 2.6 g/dL (1.3-3.2); Glucose 200 mg/dl (74-100); Total Protein,Serum 6.2 g/dl (6.3-8.2)
[2020-07-19 07:38] LABS: MANUAL DIFFERENTIAL MANUAL DIFFERENTIAL (MANUAL DIFF)
--- NOTE | 2020-07-19 08:19 | HMH.ACPN2 ---
Internal Medicine - PN: Subj *Date: 07/19/20 *Time: 08:19 Interval history: Patient continues to have oxygen requirement over his baseline and has dyspnea when he moves around as well as episodes of bronchospasm and feelings that his lung is tight. He has been able to cough up a sputum sample that appears thick and cloudy with minimal blood streaking. He is very down in the dumps about his overall condition and his 2 to 3-week period of needing oxygen 01/11. Exam Vital signs and Labs for Last 24 Hours: Temp Pulse Resp BP Pulse Ox 97.8 F 77 22 160/90 H 89 L 07/19/20 04:00 07/19/20 06:19 07/19/20 04:00 07/19/20 04:30 07/19/20 06:19 Laboratory Results - last 24 hr 07/19/20 06:22: WBC 20.1 H*, RBC 4.19 L, Hgb 12.8 L, Hct 39.4 L, MCV 94.1 H, MCH 30.5, MCHC 32.4, RDW 13.9, Plt Count 249, MPV 7.4, Neut % (Auto) 91.0 H, Lymph % (Auto) 4.0 L, [place] % (Auto) 4.9, Eos % (Auto) 0.1, Baso % (Auto) 0.1, Neut # (Auto) 18.3 H, Lymph # (Auto) 0.8, [place] # (Auto) 1.0, Eos # (Auto) 0.0, Baso # (Auto) 0.0 07/19/20 06:22: Sodium 134 L, Potassium 4.2, Chloride 98, Carbon Dioxide 31 H, Anion Gap 9.2, BUN 30 H D, Creatinine 1.20, Estimated Creat Clear 40, Estimated GFR 58 L, Est GFR ( Amer) 70, Glucose 200 H, Calcium 8.6, Total Bilirubin 0.4, AST 21, ALT 19, Alkaline Phosphatase 101, Total Protein 6.2 L, Albumin 3.6, Globulin 2.6, Albumin/Globulin Ratio 1.4 I & O for Last 24 hours: Intake & Output 07/16/20 07/17/20 07/18/20 07/19/20 11:59 11:59 11:59 11:59 Intake Total 490 / 490 660 / 660 658 / 658 Output Total 0 / 0 Balance 490 / 490 660 / 660 658 / 658 Weight 137 lb 3 oz 137 lb 8 oz 136 lb 4 oz Narrative: Patient is alert, oriented. Very mild distress with talking. Is able to finish sentences. Oropharynx clear, no JVD. Lungs have slightly better air entry with more audible wheezing. Some rhonchi in the bases but no crackles. Symmetric air entry. Heart rate regular. Abdomen soft, No edema or clubbing. Neurologically intact but dysthymic affect. Assessment and Plan (1) COPD (chronic obstructive pulmonary disease) Status: Acute Category: Medical Code(s): J44.9 - Chronic obstructive pulmonary disease, unspecified (2) Acute exacerbation of chronic obstructive pulmonary disease (COPD) Status: Acute Category: Medical Code(s): J44.1 - Chronic obstructive pulmonary disease with (acute) exacerbation - Assessment and plan all Dx Assessment and Plan for all problems:: Significant pulmonary disease, approaching end-stage. Start Pulmicort and Mucomyst nebulizers for lung inflammation and mucus clearance respectively. Patient's reports she has a long history of asthma back into his childhood. Hopefully inhaled steroids will help with this. Discussed his need when he is discharged to have oxygen therapy. 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 Discussed his dysthymia, he admits to being depressed, will start citalopram today.
[2020-07-19 10:02] LABS: Lymphocytes % 3 % (10-50); Monocytes % 9 % (2-9); Neutrophils % 88 % (42-76); Platelet Estimate Normal; RBC Morphology Normal; Total Cells Counted 100
--- NOTE | 2020-07-19 14:24 | PC.NURSE ---
Rn (Luz) called to report pt was feeling soa after neb treatment given 1330 with mucmyst. Luz checked sats. Sat 91%. I gave a PRN neb after and pt took. After treatment he appeared less anixous and said he was starting to feel better.
--- NOTE | 2020-07-19 18:12 | PC.NURSE ---
Did speak with Dr. Plascencia in RE to d/cing mucomyst as pt didnt tolerate well. Pt does still have episodes of anxiousness and soa. CB in reach. VSS. MX continues. here this afternoon. Meds given per jun.Remains on 3 L NC.
--- NOTE | 2020-07-19 19:20 | PC.NURSE ---
THIS RN PROVIDED REPORT TO JOSE HAAS.
--- NOTE | 2020-07-19 20:49 | PC.NURSE ---
Called to report B/P 182/85, new order Lisinopril 10 mg X 1 NOW, will continue to monitor
--- NOTE | 2020-07-19 22:00 | PC.NURSE ---
DID ROUNDING WITH THE TECHS,EMPYTIED TRASH,AND LINENS,PASSED SNACKS. PATIENT HAD NO NEEDS AT THIS TIME.ParvinM
[2020-07-20] VITALS (13 sets, daily range): BP systolic 149–171; BP diastolic 72–90; PULSE 60–98; RESP 17–22; TEMP 36.4–36.8; O2SAT 90–95; BMI 21.5
--- NOTE | 2020-07-20 03:55 | PC.NURSE ---
Pt remains anxious and ornerous throughout the shift. B/P elevated at beginning shift, Dr. Andre ordered a 1 time dose of Lisinopril 10 mg, pts B/p trended down throughout the shift. Patient is incessantly ruminates over his chronic condition of COPD. Pt ambulates to the restroom and this RN and other staff have suggested he use a urinal to avoid over-excessive exertion. Will continue to monitor for any acute changes.
--- NOTE | 2020-07-20 05:00 | PC.NURSE ---
EMPTIED TRASH AND LINENS REFILLED ICE PITCHERS. PT HAD NO NEEDS AT THIS TIME.Aida
[2020-07-20 07:39] LABS: Basophils % 0.1 % (0.1-2.0); Eosinophils % 0.1 % (0.1-12.0); Hematocrit 37.9 % (42.0-52.0); Hemoglobin 12.5 g/dL (14.1-18.0); Lymphocytes # 0.7 K/mm3 (0.7-4.5); Lymphocytes % 3.7 % (10-50); Mean Corpuscular HGB Conc 33.1 g/dL (31.8-35.4); Mean Corpuscular Hemoglobin 30.9 pg (27.0-31.2); Mean Corpuscular Volume 93.4 fl (80-94); Mean Platelet Volume 7.5 fl (7.4-10.4); Monocytes # 0.9 K/mm3 (0.1-1.0); Monocytes % 5.1 % (1.7-9.3); Neutrophils # 16.9 K/mm3 (1.8-7.8); Platelet Count 246 K/mm3 (142-424); Red Blood Count 4.05 M/mm3 (4.60-6.20); White Blood Count 18.6 K/mm3 (4.8-10.8)
[2020-07-20 07:41] LABS: MANUAL DIFFERENTIAL MANUAL DIFFERENTIAL (MANUAL DIFF)
[2020-07-20 07:50] LABS: Chloride 99 mmol/L (98-107)
[2020-07-20 07:51] LABS: Potassium 4.4 mmoL/L (3.5-5.1); Sodium 134 mmol/L (136-145)
[2020-07-20 07:53] LABS: Blood Urea Nitrogen 39 mg/dl (9-20); Creatinine Clearance Estimated 37 mL/min (50-200); Estimated Glomerular Filt Rate 53 ml/min (>60); GFR (African American) 64 ML/MIN (>60)
[2020-07-20 07:54] LABS: Anion Gap 7.4 mEq/L (5-15); Calcium 8.4 mg/dl (8.4-10.2); Carbon Dioxide 32 mmol/L (22.0-30.0); Glucose 168 mg/dl (74-100)
[2020-07-20 08:18] LABS: Lymphocytes % 7 % (10-50); Monocytes % 4 % (2-9); Neutrophils % 89 % (42-76); Platelet Estimate Normal; RBC Morphology Normal; Total Cells Counted 100
--- NOTE | 2020-07-20 08:50 | CT_ITS ---
PROCEDURE: CT ANGIO CHEST CLINCIAL INDICATION: dyspnea Dyspnea, COPD, former smoker COMPARISON: CT CT ANGIO CHEST from 12/18/[address] HR CHEST X3 from 07/20/2020 TECHNIQUE: IV Contrast: 70ML Isovue 370 Axial images obtained with sagittal and coronal reformats. All CT scans at the facility use one or more dose reduction, viz: automated exposure control, ma/kV adjustment per patient size (including targeted exams where dose is matched to indication, i.e. head), or iterative reconstruction technique. FINDINGS: CT a chest: Atheromatous changes are present involving the aorta. No evidence of aortic dissection or aneurysm. Minimal calcification noted within the aortic valve. No evidence of pulmonary embolus. No mediastinal or hilar mass or adenopathy. There remains a small collection of air in the left aspect of the mediastinum just superior to the level of the aortic arch. This is not significantly changed and may represent a focal dilated segment of the esophagus or an esophageal diverticulum. There is a small amount of mucous within the distal trachea posteriorly on the right. There is dilatation of the trachea and mainstem bronchi/tracheobronchomegaly. There has been a prior CABG High-resolution chest CT: Inspiration, expiration, and prone imaging performed. Biapical fibrotic change with chronic consolidation/volume loss in the lung apices and mild bronchiectasis. Not significantly changed. Scattered areas of scarring. COPD. Old granulomatous disease with scattered calcified nodules. 6 mm noncalcified nodule within the left upper lobe medially unchanged. Ground-glass attenuation noted in the right upper lobe anteriorly as well as the left upper lobe and lingula not readily apparent on the previous exam. No interlobular septal thickening or honeycombing. Findings suggesting air trapping with no significant change in the volume of the lung on inspiration and expiration. No effusions. Old fractures of the left 12th and 11th ribs IMPRESSION: 1. No evidence of pulmonary embolus. 2. COPD with chronic volume loss in the lung apices with bronchiectasis and scattered areas of scarring. Stable pulmonary nodules. 3. Ground-glass infiltrates in both upper lobes nonspecific but may be seen with atypical/Covid19 pneumonia. 4. No evidence of interstitial lung disease Dictated by: Michoacano De León MD 07/20/2020 10:47 Michoacano De León MD in [facility] 07/20/2020 10:47
--- NOTE | 2020-07-20 08:51 | HMH.ACPN2 ---
Internal Medicine - PN: Subj *Date: 07/20/20 *Time: 08:51 Interval history: Patient has progressed very minimally overnight, a little bit less short of air at rest but any walking around precipitate significant dyspnea and tightness. He notes that his Lortab that he asked for early this morning seemed to relieve some of his dyspnea. Exam Vital signs and Labs for Last 24 Hours: Temp Pulse Resp BP Pulse Ox 97.9 F 80 18 171/72 H 90 L 07/20/20 07:27 07/20/20 08:00 07/20/20 07:27 07/20/20 07:27 07/20/20 07:27 Laboratory Results - last 24 hr 07/19/20 06:22: Total Counted 100, Neutrophils % (Manual) 88 H, Lymphocytes % (Manual) 3 L, Monocytes % (Manual) 9, Platelet Estimate Normal, RBC Morphology Normal 07/20/20 06:16: WBC 18.6 H, RBC 4.05 L, Hgb 12.5 L, Hct 37.9 L, MCV 93.4, MCH 30.9, MCHC 33.1, RDW 14.0, Plt Count 246, MPV 7.5, Neut % (Auto) 91.0 H, Lymph % (Auto) 3.7 L, [place] % (Auto) 5.1, Eos % (Auto) 0.1, Baso % (Auto) 0.1, Neut # (Auto) 16.9 H, Lymph # (Auto) 0.7, [place] # (Auto) 0.9, Eos # (Auto) 0.0, Baso # (Auto) 0.0, Total Counted 100, Neutrophils % (Manual) 89 H, Lymphocytes % (Manual) 7 L, Monocytes % (Manual) 4, Platelet Estimate Normal, RBC Morphology Normal 07/20/20 06:16: Sodium 134 L, Potassium 4.4, Chloride 99, Carbon Dioxide 32 H, Anion Gap 7.4, BUN 39 H D, Creatinine 1.30 H, Estimated Creat Clear 37, Estimated GFR 53 L, Est GFR ( Amer) 64, Glucose 168 H, Calcium 8.4 I & O for Last 24 hours: Intake & Output 07/17/20 07/18/20 07/19/20 07/20/20 11:59 11:59 11:59 11:59 Intake Total 490 / 490 660 / 660 898 / 898 746 / 746 Output Total 0 / 0 Balance 490 / 490 660 / 660 898 / 898 746 / 746 Weight 137 lb 3 oz 137 lb 8 oz 136 lb 4 oz 137 lb 3.063 oz Microbiology Reports for the Last 24 Hours: Microbiology 07/19/20 16:00 Sputum - Expectorated Sputum Gram Stain - Final 07/19/20 16:00 Sputum - Expectorated Sputum Sputum Culture - Final Narrative: Patient is pleasant, O2 requirements unchanged. Lungs have diffuse wheezing and rhonchi, extremely poor air entry, marginally better than yesterday. Heart rate regular. Exam compromised by wheezing. Abdomen soft. Extremities without cyanosis or edema. Neurologically intact. ENT exam clear. Assessment and Plan (1) COPD (chronic obstructive pulmonary disease) Status: Acute Category: Medical Code(s): J44.9 - Chronic obstructive pulmonary disease, unspecified (2) Acute exacerbation of chronic obstructive pulmonary disease (COPD) Status: Acute Category: Medical Code(s): J44.1 - Chronic obstructive pulmonary disease with (acute) exacerbation - Assessment and plan all Dx Assessment and Plan for all problems:: Continue antibiotics and steroids. Slight improvement. Mucomyst caused some lung burning and we stopped this. He remains on Pulmicort which was started yesterday through nebulizer. However, given his end-stage appearing disease I will ask pulmonary consultation to evaluate him tomorrow. We will also get CT scan of his lung parenchyma today. Given his breathlessness with activity I would like to make sure he does not have pulmonary emboli and we will order CT angiogram today as well. Follow labs tomorrow. Given the Lortabs help with his breathlessness we will trial low-dose Roxanol today for air hunger and I have given him instructions about when to ask for this medication.
--- NOTE | 2020-07-20 08:56 | P.PN_ITS ---
Internal Medicine - PN: Subj *Date: 07/20/20 *Time: 08:56 Exam Vital signs and Labs for Last 24 Hours: Temp Pulse Resp BP Pulse Ox 97.9 F 80 18 171/72 H 90 L 07/20/20 07:27 07/20/20 08:00 07/20/20 07:27 07/20/20 07:27 07/20/20 07:27 Laboratory Results - last 24 hr 07/19/20 06:22: Total Counted 100, Neutrophils % (Manual) 88 H, Lymphocytes % (Manual) 3 L, Monocytes % (Manual) 9, Platelet Estimate Normal, RBC Morphology Normal 07/20/20 06:16: WBC 18.6 H, RBC 4.05 L, Hgb 12.5 L, Hct 37.9 L, MCV 93.4, MCH 30.9, MCHC 33.1, RDW 14.0, Plt Count 246, MPV 7.5, Neut % (Auto) 91.0 H, Lymph % (Auto) 3.7 L, [place] % (Auto) 5.1, Eos % (Auto) 0.1, Baso % (Auto) 0.1, Neut # (Auto) 16.9 H, Lymph # (Auto) 0.7, [place] # (Auto) 0.9, Eos # (Auto) 0.0, Baso # (Auto) 0.0, Total Counted 100, Neutrophils % (Manual) 89 H, Lymphocytes % (Manual) 7 L, Monocytes % (Manual) 4, Platelet Estimate Normal, RBC Morphology Normal 07/20/20 06:16: Sodium 134 L, Potassium 4.4, Chloride 99, Carbon Dioxide 32 H, Anion Gap 7.4, BUN 39 H D, Creatinine 1.30 H, Estimated Creat Clear 37, Estimated GFR 53 L, Est GFR ( Amer) 64, Glucose 168 H, Calcium 8.4 I & O for Last 24 hours: Intake & Output 07/17/20 07/18/20 07/19/20 07/20/20 23:59 23:59 23:59 23:59 Intake Total 660 / 660 660 / 660 718 / 849 506 / 506 Output Total 0 / 0 Balance 660 / 660 660 / 660 718 / 849 506 / 506 Weight 62.227 kg 62.369 kg 61.802 kg 62.229 kg Microbiology Reports for the Last 24 Hours: Microbiology 07/19/20 16:00 Sputum - Expectorated Sputum Gram Stain - Final 07/19/20 16:00 Sputum - Expectorated Sputum Sputum Culture - Final Assessment and Plan (1) COPD (chronic obstructive pulmonary disease) Status: Acute Category: Medical Code(s): J44.9 - Chronic obstructive pulmonary disease, unspecified (2) Acute exacerbation of chronic obstructive pulmonary disease (COPD) Status: Acute Category: Medical Code(s): J44.1 - Chronic obstructive pulmonary disease with (acute) exacerbation The patient's infection will respond to the chosen ABx?: Yes Is the patient receiving the right drug, dose, and route?: Yes Could a more targeted ABx be ordered?: No
--- NOTE | 2020-07-20 15:41 | PC.NURSE ---
Pt is alert and oriented and able to make needs known. Pt has been down for tests per radiology this shift and has a pulmonary consult for tomorrow. Pts and son have visited this shift. BS x 2, s1,s2, lungs have scattered rhonchi and wheezes. Mx continues. VSS. Remains on 3 L NC.
--- NOTE | 2020-07-20 19:10 | PC.NURSE ---
THIS RN PROVIDED WC REPORT TO SAMINA ASKEW.
[2020-07-21] VITALS (11 sets, daily range): BP systolic 108–153; BP diastolic 54–79; PULSE 50–88; RESP 16–20; TEMP 36.4–36.9; O2SAT 91–96; BMI 21.0; BMI 21.1
--- NOTE | 2020-07-21 04:49 | PC.NURSE ---
patient rested with eyes closed throughout shift; voiced no concerns; shows no s/s of acute distress at this time; call light within reach, bed at lowest level for safety; will continue to monitor.
[2020-07-21 06:37] LABS: Chloride 99 mmol/L (98-107); Potassium 4.4 mmoL/L (3.5-5.1); Sodium 135 mmol/L (136-145)
[2020-07-21 06:40] LABS: Anion Gap 8.4 mEq/L (5-15); Basophils % 0.1 % (0.1-2.0); Blood Urea Nitrogen 39 mg/dl (9-20); Calcium 8.3 mg/dl (8.4-10.2); Carbon Dioxide 32 mmol/L (22.0-30.0); Creatinine Clearance Estimated 39 mL/min (50-200); Eosinophils % 0.1 % (0.1-12.0); Estimated Glomerular Filt Rate 58 ml/min (>60); GFR (African American) 70 ML/MIN (>60); Glucose 164 mg/dl (74-100); Hematocrit 39.2 % (42.0-52.0); Hemoglobin 12.7 g/dL (14.1-18.0); Lymphocytes # 0.7 K/mm3 (0.7-4.5); Lymphocytes % 3.7 % (10-50); Mean Corpuscular HGB Conc 32.4 g/dL (31.8-35.4); Mean Corpuscular Hemoglobin 30.5 pg (27.0-31.2); Mean Platelet Volume 7.4 fl (7.4-10.4); Neutrophils # 17.5 K/mm3 (1.8-7.8); Neutrophils % 91.1 % (37.0-80.0); Platelet Count 245 K/mm3 (142-424); Red Blood Count 4.17 M/mm3 (4.60-6.20); White Blood Count 19.3 K/mm3 (4.8-10.8)
[2020-07-21 06:56] LABS: MANUAL DIFFERENTIAL MANUAL DIFFERENTIAL (MANUAL DIFF)
[2020-07-21 07:51] LABS: Lymphocytes % 4 % (10-50); Monocytes % 5 % (2-9); Neutrophils % 91 % (42-76); RBC Morphology Normal; Total Cells Counted 100
[2020-07-21 07:52] LABS: Platelet Estimate Normal
--- NOTE | 2020-07-21 08:11 | P.PN_ITS ---
Internal Medicine - PN: Subj *Date: 07/21/20 *Time: 08:11 Interval history: Patient did well through the day yesterday. He reports that 1 dose of Roxanol yesterday morning relieved a lot of symptoms through the day of tightness, he had some tightness early this morning and just took another dose of the 10 mg Roxanol. I reviewed CT scan findings with he and his . Exam Vital signs and Labs for Last 24 Hours: Temp Pulse Resp BP Pulse Ox 97.8 F 67 17 153/79 H 91 L 07/21/20 04:00 07/21/20 06:14 07/21/20 04:00 07/21/20 04:00 07/21/20 06:14 Laboratory Results - last 24 hr 07/20/20 06:16: Total Counted 100, Neutrophils % (Manual) 89 H, Lymphocytes % (Manual) 7 L, Monocytes % (Manual) 4, Platelet Estimate Normal, RBC Morphology Normal 07/21/20 06:15: WBC 19.3 H, RBC 4.17 L, Hgb 12.7 L, Hct 39.2 L, MCV 94.0, MCH 30.5, MCHC 32.4, RDW 14.0, Plt Count 245, MPV 7.4, Neut % (Auto) 91.1 H, Lymph % (Auto) 3.7 L, [place] % (Auto) 5.0, Eos % (Auto) 0.1, Baso % (Auto) 0.1, Neut # (Auto) 17.5 H, Lymph # (Auto) 0.7, [place] # (Auto) 1.0, Eos # (Auto) 0.0, Baso # (Auto) 0.0, Total Counted 100, Neutrophils % (Manual) 91 H, Lymphocytes % (Manual) 4 L, Monocytes % (Manual) 5, Platelet Estimate Normal, RBC Morphology Normal 07/21/20 06:15: Sodium 135 L, Potassium 4.4, Chloride 99, Carbon Dioxide 32 H, Anion Gap 8.4, BUN 39 H, Creatinine 1.20, Estimated Creat Clear 39, Estimated GFR 58 L, Est GFR ( Amer) 70, Glucose 164 H, Calcium 8.3 L I & O for Last 24 hours: Intake & Output 07/18/20 07/19/20 07/20/20 07/21/20 11:59 11:59 11:59 11:59 Intake Total 660 / 660 898 / 898 796 / 796 530 / 530 Balance 660 / 660 898 / 898 796 / 796 530 / 530 Weight 137 lb 8 oz 136 lb 4 oz 137 lb 3.063 oz 134 lb 1 oz Narrative: Patient is pleasant, talkative, no distress on oxygen. Lungs have diffuse wheezing throughout with slightly better air entry than yesterday. Heart rate regular. Abdomen soft, no neurologic distress. No visible edema. Assessment and Plan (1) COPD (chronic obstructive pulmonary disease) Status: Acute Category: Medical Code(s): J44.9 - Chronic obstructive pulmonary disease, unspecified (2) Acute exacerbation of chronic obstructive pulmonary disease (COPD) Status: Acute Category: Medical Code(s): J44.1 - Chronic obstructive pulmonary disease with (acute) exacerbation - Assessment and plan all Dx Assessment and Plan for all problems:: Significant and severe disease. CT scan reviewed. Pulmonary consult pending. No change in management at this point. Patient might be able to go home today with Roxanol for symptom relief, oxygen therapy and nebs, antibiotics and steroid taper. I discussed hospice referral with he and his given the end- stage nature of his disease and he will think about this.
--- NOTE | 2020-07-21 09:42 | SW/DCPLANNER ---
Addendum entered by Yuliet Melissa 07/22/20 09:38: This patient will discharge home today with Hospice services. Addendum entered by Yuliet Melissa 07/21/20 15:19: Acacia with Hospice has been here to evaluate this patient: patient is a candidate for Hospice at home however patient stated that he would need to speak with family prior to making any decision. I spoke with patient this afternoon regarding decision of home with Hospice and patient stated that wants to speak with Dr Plascencia and his family prior to making any decisions. I have informed Dr Plascencia. Addendum entered by Yuliet Melissa 07/21/20 11:45: Hospice will be here at noon to evaluate this patient. Original Note: Dr Plascencia has spoke with patient and his regarding Hospice services at time of discharge. Patient and are agreeable for me to fax patient information to Hospice and have a nurse come speak with them today. Dalia with Hospice is working on reviewing information has sending nurse to [facility]. I will continue to follow up with patient/family and MD. Patient could potentially discharge later today.
--- NOTE | 2020-07-21 10:37 | HMH.PULMCON ---
*Admission Date: 07/16/20 *Reason for consult:: COPD exacerbation *History of present illness: Mr. Lugo is a 85-year-old male significant smoking history current smoker half pack to 1 pack a day was presented to the hospital with worsening respiratory failure and pulmonary was called for further management [facility] History Medical History: Reports:: Atrial Fibrillation, Chronic Obstructive Pulmonary Disease (COPD), Hyperlipidemia, Hypertension, Myocardial Infarction Denies:: Cancer, Diabetes Mellitus Type 1, Diabetes Mellitus Type 2, MRSA, Seizures *Have you ever received a pneumonia vaccine?: No *Have you received a flu vaccine this season?: No Laterality Cases: Left: Arthroscopy Hip Other Surgeries: Yes: CABG, Cardiac Catheterization, Cardiac Surgery, Open Heart Surgery Amputation: No - *Social History Smoking Status: Former smoker Tobacco Type: cigarettes # Packs/Day (cigarettes): 1 Alcohol Intake: former *Occupational Status:: retired Housing: house Household Members: spouse, other *Travel in the last 8 weeks: None Family Hx:: Coronary Artery Disease, Heart Attack, Hyperlipidemia, Hypertension Meds Home Medications Medication Instructions Recorded Confirmed Type Atorvastatin Calcium [Atorvastatin 40 mg PO HS 10/30/18 07/17/20 History 40mg Tab] Hydrocodone/Acetaminophen 1 tab PO Q6HP PRN 10/30/18 07/16/20 History [Hydrocodone-Acetamin 7.5-325] Ipratropium/Albuterol Sulfate 2 puffs IH QID PRN 07/16/20 07/16/20 History [Combivent Respimat Inh] Ipratropium/Albuterol Sulfate 3 ml IH Q6H PRN 07/16/20 07/17/20 History [Duoneb 3mL neb] Aspirin [Aspirin 81mg EC Tab] 81 mg PO DAILY 07/17/20 07/17/20 History carvediloL [Carvedilol 6.25mg Tab] 6.25 mg PO BID 07/17/20 07/17/20 History lisinopriL [Lisinopril] 10 mg PO DAILY 07/17/20 07/17/20 History Allergies Allergy/AdvReac Type Severity Reaction Status Date / Time Penicillins [PENICILLINS] Allergy Unknown Verified 12/18/19 09:41 Sulfa (Sulfonamide Allergy Unknown Verified 09/08/20 09:41 Antibiotics) [SULFA (SULFONAMIDE ANTIBIOTICS)] Internal Medicine - CN: Reslt - Labs CBC & Chem 7: 07/21/20 06:15 07/21/20 06:15 Labs: Short CBC 07/21/20 Range/Units 06:15 WBC 19.3 H (4.8-10.8) K/mm3 Hgb 12.7 L (14.1-18.0) g/dL Hct 39.2 L (42.0-52.0) % Plt Count 245 (142-424) K/mm3 BMP 07/21/20 06:15 Sodium 135 L Potassium 4.4 Chloride 99 Carbon Dioxide 32 H BUN 39 H Creatinine 1.20 Glucose 164 H Calcium 8.3 L - ABG Interpretation ABG results: 07/16/20 14:34 VBG pH 7.34 VBG pCO2 51.0 VBG pO2 61.9 H VBG HCO3 26.8 VBG Total CO2 28.4 H VBG O2 Saturation 91.0 H VBG Base Excess 1.0 Assessment and Plan (1) COPD (chronic obstructive pulmonary disease) Status: Acute Category: Medical Code(s): J44.9 - Chronic obstructive pulmonary disease, unspecified (2) Acute exacerbation of chronic obstructive pulmonary disease (COPD) Status: Acute Category: Medical Code(s): J44.1 - Chronic obstructive pulmonary disease with (acute) exacerbation - Assessment and plan all Dx Assessment and Plan for all problems:: #Hypoxic respiratory failure: #COPD exacerbation #Bilateral Upper Lobe Bronchiectasis: #Childhood history of severe asthma: Ms. Lugo is a 85-year-old male significant smoking history still smoking half pack to 1 pack a day, significant childhood asthma which is severe used to receive epinephrine shots at that time presented to the hospital with worsening respiratory failure and pulmonary was called for further management per Patient admits worsening symptoms without any cough or productive phlegm. Patient also denies any chronic productive phlegm. Patient recent admission to hospital with COPD exacerbation was in December 2019 and he has been using nocturnal oxygen therapy for the last 4 months at 2-3 L. Afebrile on presentation. Significant evidence of leukocy
--- NOTE | 2020-07-21 13:11 | PC.NURSE ---
Sputum induced. Pt encouraged to continue to cough. Specimen cup left at bedside.
--- NOTE | 2020-07-21 17:30 | PC.NURSE ---
Pt remains A&Ox4. Pt has c/o chest pain/tightness x2 this shift. Pt given PRN meds and has stated favorable results. Pt has gotten up w/ standby assist this shift, but still gets winded w/ exertion. has remained at bedside for this entire shift. No other acute changes or complaints at this time.
[2020-07-22] VITALS: BP 149/73; PULSE 50; PULSE 57; RESP 16; TEMP 36.7; O2SAT 97
--- NOTE | 2020-07-22 03:11 | PC.NURSE ---
No acute changes overnight. Pt c/o tightness in chest x1, Morphine PO was given per mar x1 with desired effects. Pt on 3L NC, Sats in the 90s. Lungs are diminished overall, with fine crackles scattered throughout. Pt reports sleeping fairly well through the night. No other changes this shift. VSS, call light in reach, no concerns at this time.
[2020-07-22 04:00] VITALS: BP 142/77; PULSE 57; PULSE 60; RESP 20; TEMP 36.4; O2SAT 97
[2020-07-22 06:00] VITALS: BMI 21.2
[2020-07-22 06:20] VITALS: PULSE 51; PULSE 52; O2SAT 98
[2020-07-22 08:00] VITALS: BP 146/66; PULSE 60; PULSE 63; RESP 18; TEMP 36.4; O2SAT 94
--- NOTE | 2020-07-22 08:55 | HMH.DCSUM ---
General - General Admission date:: 07/16/20 Discharge date: 07/22/20 HPI HPI: 85-year-old male with history of COPD presents with COPD exacerbation that has worsened over the last few days. He says that he was here earlier this week and was supposed to be admitted for COPD however he decided to go home. He has had worsening shortness of air and mild cough as well. 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 He does deny fever vomiting chest pain abdominal pain. He says he has been taking his steroids as recommended no chills. Above note per ER physician. Patient has been to the ER twice in the past 3 days. Although was placed on prednisone did not improve much, very tight in his chest, has some nausea and early satiety because of his chest tightness does report chest pain but does not endorse angina, states that it is different from his heart pain and its because my lungs are tight. Does note this morning that he feels better after 1 night of steroids intravenously. Hospital Course Hospital Course: 85-year-old male admitted for severe exacerbation of end-stage COPD. Chronic oxygen use at home. Was initiated on aggressive therapy with inhalers, nebulizers, steroids, antibiotics. Had gradual but positive improvement in symptoms. Pulmonology was consulted during admission and assist in care, appreciate their recommendations. Given severity of disease, significant dyspnea/air hunger, patient was initiated on Roxanol with good response. Goals of care discussion with patient, family, consulting providers, led to decision to consider hospice consult. Ultimately patient decided to pursue hospice and continue current regimen and oral form at home. Stable on oxygen but still quite symptomatic. Discharged home to finish antibiotics. Hospice to assess patient when he gets home. Plan to follow-up in our office in the coming week for reevaluation. Objective Vital signs: Temp Pulse Resp BP Pulse Ox 97.6 F 52 L 20 142/77 H 98 07/22/20 04:00 07/22/20 06:20 07/22/20 04:00 07/22/20 04:00 07/22/20 06:20 moderate distress, chronically ill appearing - *Routine HEENT Exam Head: Present: normocephalic Eye: Present: EOMI, PERRL ENT: Present: mucous membranes moist - *Routine Neck Exam Present: supple - *Routine Respiratory Exam Present: accessory muscle use, prolonged expiratory phase, wheezes, crackles, diminished air movement - *Routine Cardiovascular Exam Present: RRR - *Routine Abdominal Exam Present: soft, normoactive bowel sounds. Absent: tenderness - *Routine Extremities Exam Absent: cyanosis, clubbing, edema - *Routine Skin Exam Present: warm. Absent: rash DS: Diagnosis - Discharge Diagnosis (1) COPD (chronic obstructive pulmonary disease) Status: Acute Problem details: End-stage disease (2) Acute exacerbation of chronic obstructive pulmonary disease (COPD) Status: Acute Discharge Plan - Patient Discharge Instructions ACTIVITY: Continue current activity DIET: continue same diet Patient Instructions: DI for Chronic Obstructive Pulmonary Disease - Follow up Plan Follow up with: Madhavi Alves MD [Physician] - 08/04/20 3:30 pm Ziggy Plascencia MD [Staff Physician] - 07/30/20 2:00 pm ( ) Disposition: Hospice - Home Home Medications: Home Medications Medication Instructions Recorded Confirmed Type Atorvastatin Calcium [Lipitor 40mg 40 mg PO HS 10/30/18 07/17/20 History Tab] Hydrocodone/Acetaminophen 1 tab PO Q6HP PRN 10/30/18 07/16/20 History [Hydrocodone-Acetamin 7.5-325] Aspirin [Aspirin 81mg EC Tab] 81 mg PO DAILY 07/17/20 07/17/20 History carvediloL [Carvedilol 6.25mg Tab] 6.25 mg PO BID 07/17/20 07/17/20 History lisinopriL [Lisinopril] 10 mg PO DAILY 07/17/20 07/17/20 History Acetaminophen [Acetaminophen 325mg 650 mg PO Q4HP PRN tab 07/22/20 Rx tab]
--- NOTE | 2020-07-22 10:32 | HMH.PULMPN ---
Internal Medicine - PN: Subj *Date: 07/22/20 *Time: 10:32 Interval history: No acute respiratory events overnight. Exam - Constitutional Constitutional:: Present: no acute distress, comfortable - HENMT Exam HENMT: Present: normocephalic, atraumatic - Eye Exam Eyes:: Present: eyelids normal - Neck Exam Neck:: Present: normal visual inspection - Respiratory Exam Respiratory:: Present: able to speak in complete sentences, no respiratory distress, wheezing - Cardiovascular Exam Cardiac:: Present: S1, S2 - GI Exam GI:: Present: soft - Skin Exam Skin: Present: warm, no rash - Neurological Exam Neurological: Present: alert, awake, normal cognition - Extremities Exam Extremities: Present: no cyanosis, no clubbing, no edema - Psychiatric Exam Psychiatric: Present: normal affect, appearance grossly normal Assessment and Plan (1) COPD (chronic obstructive pulmonary disease) Status: Acute Category: Medical Code(s): J44.9 - Chronic obstructive pulmonary disease, unspecified (2) Acute exacerbation of chronic obstructive pulmonary disease (COPD) Status: Acute Category: Medical Code(s): J44.1 - Chronic obstructive pulmonary disease with (acute) exacerbation - Assessment and plan all Dx Assessment and Plan for all problems:: #Hypoxic respiratory failure: #COPD exacerbation #Bilateral Upper Lobe Bronchiectasis: #Childhood history of severe asthma: Ms. Lugo is a 85-year-old male significant smoking history still smoking half pack to 1 pack a day, significant childhood asthma which is severe used to receive epinephrine shots at that time presented to the hospital with worsening respiratory failure and pulmonary was called for further management per Patient admits worsening symptoms without any cough or productive phlegm. Patient also denies any chronic productive phlegm. Patient recent admission to hospital with COPD exacerbation was in December 2019 and he has been using nocturnal oxygen therapy for the last 4 months at 2-3 L. Afebrile on presentation. Significant evidence of leukocytosis neutrophil predominant. Respiratory viral panel negative. Evidence of peripheral eosinophilia noted on his recent labs prior to this admission at 600, unclear whether patient has received steroids or not as his eosinophil count on this admission is 0. CT reviewed, no obvious evidence of pulmonary fibrosis or interstitial lung disease except for evidence of bilateral upper lobe scarring more on the left side likely from prior infection. CT also showed new evidence of bilateral upper lobe groundglass opacities Lt > Rt. evidence of old granulomatous disease also noted. Patient was being treated with ceftriaxone azithromycin since admission along with steroids. Have also discussed regarding the need for bronchoscopy however given improvement in patient's symptoms will defer at this point of time awaiting his clinical course. Patient continued to improve with current treatment. Patient is being discharged home today with home hospice Plan: -F/U sputum Gram stain cultures -Continue ceftriaxone azithromycin, patient can be discharged on levofloxacin for total of 14 days -Continue methylprednisolone, can be weaned to prednisone 40 mg daily for 7 days with taper after that on discharge -Continue DuoNebs every 6 along with budesonide every 12, discharge patient on triple inhaler therapy along with either albuterol or DuoNebs every 6 hours as needed (patient at baseline only using Combivent/albuterol on a as needed basis) -Follow with infectious labs -Continue oxygen therapy to maintain O2 saturation goal of 88 to 92%. #Thank you for involving pulmonary in this patient care. We will follow the patient in pulmonary clinic in 2 weeks
[2020-07-22 11:58] VITALS: BP 124/62; PULSE 60; RESP 19; TEMP 36.4; O2SAT 93
[2020-07-22 13:38] VITALS: PULSE 55; PULSE 57; O2SAT 93
[2020-07-24 23:12] LABS: Aspergillus flavus Negative (Neg:<1:1); Aspergillus fumigatus Negative (Neg:<1:1); Aspergillus niger Negative (Neg:<1:1)
[2020-07-25 06:17] LABS: Blastomyces Antibody Negative (Neg:<1:1)
[2020-07-25 06:21] LABS: M003-IgE Aspergillus fumigatus 1.09 kU/L (Class II)
[2020-07-25 21:22] LABS: D001-IgE D pteronyssinus <0.10 kU/L (Class 0); D002-IgE D farinae <0.10 kU/L (Class 0); E001-IgE Cat Dander <0.10 kU/L (Class 0); E005-IgE Dog Dander <0.10 kU/L (Class 0); G002-IgE Bermuda Grass <0.10 kU/L (Class 0); G006-IgE Timothy Grass <0.10 kU/L (Class 0); I006-IgE Cockroach, German <0.10 kU/L (Class 0); Immunoglobulin E, Total 135 IU/mL (6-495); M001-IgE Penicillium chrysogen <0.10 kU/L (Class 0); M002-IgE Cladosporium herbarum <0.10 kU/L (Class 0); M003-IgE Aspergillus fumigatus 1.05 kU/L (Class II); M006-IgE Alternaria alternata <0.10 kU/L (Class 0); T001-IgE Maple/Box Elder <0.10 kU/L (Class 0); T003-IgE Common Silver Birch <0.10 kU/L (Class 0); T006-IgE Cedar, Mountain <0.10 kU/L (Class 0); T007-IgE Oak, White <0.10 kU/L (Class 0); T008-IgE Elm, American <0.10 kU/L (Class 0); T010-IgE Walnut <0.10 kU/L (Class 0); T011-IgE Maple Leaf Sycamore <0.10 kU/L (Class 0); T014-IgE Cottonwood <0.10 kU/L (Class 0); T015-IgE Ash, White <0.10 kU/L (Class 0); T022-IgE Pecan, Hickory <0.10 kU/L (Class 0); T070-IgE White Mulberry <0.10 kU/L (Class 0); W001-IgE Ragweed, Short <0.10 kU/L (Class 0); W011-IgE Thistle, Russian <0.10 kU/L (Class 0); W014-IgE Pigweed, Common <0.10 kU/L (Class 0); W018-IgE Sheep Sorrel <0.10 kU/L (Class 0)
[2020-07-26 12:22] LABS: E072-IgE Mouse Urine <0.10 kU/L (Class 0)
== END 2020-07-22 15:56 | disposition hospice, home (50) ==
LOC: ER 16:12 → 2ND 16:47
PROVIDERS: Internal Medicine Pulmonary Disease; Admitting Provider Internal Medicine Adolescent Medicine; Emergency Provider Emergency Medicine; PCP Internal Medicine; Visit Provider Internal Medicine Adolescent Medicine
DX: J44.1 Chronic obstructive pulmonary disease with (acute) exacerbation (principal); I48.91 Unspecified atrial fibrillation; I25.2 Old myocardial infarction; Z66 Do not resuscitate; Z87.891 Personal history of nicotine dependence; Z95.1 Presence of aortocoronary bypass graft; Z88.0 Allergy status to penicillin; Z88.2 Allergy status to sulfonamides; R07.89 Other chest pain
CPT/HCPCS: 36415; 71046; 71250; 71275; 80048; 80053; 80061; 82785; 82803; 83735; 84100; 84484; 85007; 85025; 86003; 86606; 86612; 87070; 87077; 87186; 87205; 87581; 87633; 87798; 93005; 94640; 94760; 94761; 96365; 96372; 99284; G0378; J0456; Q9967

== ENCOUNTER 2020-07-26 04:13 | Inpatient (IN) | payer OTHER, MEDICARE, SELFPAY ==
[2020-07-26] VITALS (38 sets, daily range): BP systolic 85–132; BP diastolic 46–70; PULSE 74–117; RESP 16–97; TEMP 36.4–37.6; O2SAT 94–100; BMI 19.3; BMI 20.7
--- NOTE | 2020-07-26 04:07 | ECG_ITS ---
APPROVED REPORT Exam: Resting ECG HR:81 bpm ECG Measurements Heart Rate 81 AXES [place] 142 P 75 QRSd 88 QRS 57 QT 364 T 70 QTc 422 Conclusion Normal sinus rhythm with sinus arrhythmia Septal infarct, age undetermined Abnormal ECG Electronically signed by : Ziggy Plascencia, 07/27/2020 07:27:09
--- NOTE | 2020-07-26 04:25 | CT_ITS ---
PROCEDURE: CT ABDOMEN PELVIS W CON CLINICAL INDICATION: gi bleed GI bleed COMPARISON: CT ABDPELW/O CT ABD PELVIS W/O CONTRAST from 06/02/[address] ANGIO CHEST from 07/20/2020 TECHNIQUE: IV Contrast: 75ML Isovue 370 Oral Contrast none Axial images obtained with sagittal and coronal reformats. All CT scans at the facility use one or more dose reduction, viz: automated exposure control, ma/kV adjustment per patient size (including targeted exams where dose is matched to indication, i.e. head), or iterative reconstruction technique. FINDINGS: LOWER THORAX: Faint tree-in-bud opacification has developed in the right lower lobe laterally suggesting a small area pneumonia. Faint opacification once again noted in the lingula suggesting an area of infiltrate. Atelectatic change also noted in the lingula. Small left pleural effusion. ABDOMEN & PELVIS: The liver, spleen, adrenal glands, have an unremarkable appearance. There is mild haziness of the [place] pancreatic fat suggesting mild pancreatitis. There is a wedge-shaped area of decreased density involving the upper aspect of the right kidney posterior laterally consistent with a renal infarction. This area measures 1.9 cm. There is a small exophytic right renal cyst. There is mild thickening of the antrum of the stomach. No intestinal obstruction or free air. There are fluid-filled loops of small and large bowel with air-fluid levels which may indicate gastroenteritis/diarrhea disease. Colonic diverticulosis is noted. No evidence of diverticulitis. Aortoiliac stent graft is present. The graft itself measures 3 cm in transverse dimension with the [place] aorta with mural thrombus measuring 5.9 cm. No evidence graft leak. Artifact is present from a left hip prosthesis. Trace amount of fluid noted in the pelvis. Degenerative changes of the spine. IMPRESSION: 1. Tree-in-bud opacification in the right lower lobe laterally suggesting pneumonia with atelectasis or infiltrate also present in the lingula. 2. Wall thickening of the antrum of the stomach may be due to nondistention. Gastritis or infiltrative tumor also a consideration. 3. Colonic diverticulosis without diverticulitis. 4. Enterocolitis/diarrhea disease 5. Possible mild pancreatitis. 6. 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 Nonemergent follow-up suggested for confirmation to exclude hypodense neoplasm. Dictated by: Michoacano De León MD 07/26/2020 08:19 Michoacano De León MD in [facility] 07/26/2020 08:19
--- NOTE | 2020-07-26 04:25 | XR_ITS ---
PROCEDURE: XR CHEST AP CLINICAL HISTORY: soa Shortness of air, COPD, heart disease COMPARISON: CR XR CHEST PORTABLE from 12/18/2019 CR XR CHEST PORTABLE from 07/12/2020 CR XR CHEST 2V from 07/16/[address] ANGIO CHEST from 07/20/[address] ABDOMEN PELVIS W CON from 07/26/2020 FINDINGS: Prior CABG. Normal heart size. Chronic biapical pleural parenchymal thickening with volume loss. Patchy infiltrate is present in the left lower lobe which has developed in the interval.. No acute bony abnormalities. IMPRESSION: Chronic changes with left lower lobe infiltrate. Dictated by: Michoacano De León MD 07/26/2020 07:40 Michoacano De León MD in [facility] 07/26/2020 07:40
[2020-07-26 04:44] LABS: Alanine Aminotransferase 17 U/L (12-78); Albumin Level 2.5 g/dl (3.5-5.0); Albumin/Globulin Ratio 1.1 (1.1-1.8); Alkaline Phosphatase 69 U/L (38-126); Anion Gap 9.3 mEq/L (5-15); Aspartate Amino Transferase 21 U/L (17-59); Bilirubin,Total 0.3 mg/dl (0.2-1.3); Blood Urea Nitrogen 49 mg/dl (9-20); Calcium 7.3 mg/dl (8.4-10.2); Carbon Dioxide 27 mmol/L (22.0-30.0); Chloride 103 mmol/L (98-107); Creatinine Clearance Estimated 40 mL/min (50-200); Estimated Glomerular Filt Rate 58 ml/min (>60); GFR (African American) 70 ML/MIN (>60); Globulin 2.3 g/dL (1.3-3.2); Glucose 169 mg/dl (74-100); Potassium 4.3 mmoL/L (3.5-5.1); Sodium 135 mmol/L (136-145); Total Protein,Serum 4.8 g/dl (6.3-8.2)
[2020-07-26 04:45] LABS: Occult Blood,Stool Positive (Negative)
[2020-07-26 04:45] LABS: Basophils # 0.1 K/mm3 (0-0.2); Basophils % 0.2 % (0.1-2.0); Eosinophils # 0.1 K/mm3 (0.0-0.4); Eosinophils % 0.4 % (0.1-12.0); Hematocrit 31.2 % (42.0-52.0); Lymphocytes # 2.6 K/mm3 (0.7-4.5); Lymphocytes % 9.8 % (10-50); Mean Corpuscular HGB Conc 31.9 g/dL (31.8-35.4); Mean Corpuscular Hemoglobin 30.9 pg (27.0-31.2); Mean Corpuscular Volume 96.7 fl (80-94); Mean Platelet Volume 7.8 fl (7.4-10.4); Monocytes # 1.4 K/mm3 (0.1-1.0); Monocytes % 5.1 % (1.7-9.3); Neutrophils # 22.7 K/mm3 (1.8-7.8); Neutrophils % 84.6 % (37.0-80.0); Platelet Count 177 K/mm3 (142-424); Red Blood Count 3.23 M/mm3 (4.60-6.20); Red Cell Distribution Width 13.9 % (11.5-17.5)
[2020-07-26 04:46] LABS: White Blood Count 26.9 K/mm3 (4.8-10.8)
[2020-07-26 04:47] LABS: MANUAL DIFFERENTIAL MANUAL DIFFERENTIAL (MANUAL DIFF)
[2020-07-26 04:50] LABS: C-Reactive Protein 10.2 mg/L (0-4)
[2020-07-26 05:03] LABS: Procalcitonin 0.123 ng/mL (0.0-2.0)
[2020-07-26 05:06] LABS: Lymphocytes % 6 % (10-50); Monocytes % 11 % (2-9); Neutrophils % 83 % (42-76); Total Cells Counted 100
--- NOTE | 2020-07-26 05:07 | HMH.EDGIBL ---
ED Disposition Clinical Impression: Upper gastrointestinal hemorrhage, Acute blood loss anemia COPD (chronic obstructive pulmonary disease) Qualifiers: COPD type: unspecified COPD Qualified Code(s): J44.9 - Chronic obstructive pulmonary disease, unspecified Disposition: Admitted as Observation Condition on Discharge: Fair - Critical Care Critical Care Time: No Attestation: On 07/26/20, the high probability of a clinically significant, sudden or life threatening deterioration of the following system(s) required my full and direct attention, intervention and personal management. The time I documented below is in addition to time spent performing reported procedures but includes the following listed in this critical care notation. Medical Decision Making - Medical Records Medical records reviewed: Yes: I reviewed the patient's medical records. - Amadeo Inquiry Pt receiving controlled substance: No Vital Signs: 07/26/20 04:15 07/26/20 07:30 07/26/20 08:00 Temperature 97.6 F Temperature Source Oral Pulse Rate 99 H 106 H Pulse Rate [Right] 88 Respiratory Rate 18 18 16 Blood Pressure 111/65 100/62 L Blood Pressure [Right Arm] 103/58 L Blood Pressure Mean [Right Arm] 73 Blood Pressure Source [Right Arm] Automatic Cuff Blood Pressure Position [Right Arm] Supine 02 Sat by Pulse Oximetry 98 99 99 Oxygen Delivery Method Nasal Cannula Nasal Cannula Oxygen Flow Rate (LPM) 2 2 - Lab Data Lab results reviewed: Yes: I reviewed the patient's lab results. Lab Results 07/26/20 04:10: WBC 26.9 H*, RBC 3.23 L, Hgb 10.0 L, Hct 31.2 L, MCV 96.7 H, MCH 30.9, MCHC 31.9, RDW 13.9, Plt Count 177, MPV 7.8, Neut % (Auto) 84.6 H, Lymph % (Auto) 9.8 L, [place] % (Auto) 5.1, Eos % (Auto) 0.4, Baso % (Auto) 0.2, Neut # (Auto) 22.7 H, Lymph # (Auto) 2.6, [place] # (Auto) 1.4 H, Eos # (Auto) 0.1, Baso # (Auto) 0.1, Total Counted 100, Neutrophils % (Manual) 83 H, Lymphocytes % (Manual) 6 L, Monocytes % (Manual) 11 H, Platelet Estimate Normal, RBC Morphology Normal, ESR 16 07/26/20 04:10: Sodium 135 L, Potassium 4.3, Chloride 103, Carbon Dioxide 27, Anion Gap 9.3, BUN 49 H, Creatinine 1.20, Estimated Creat Clear 40, Estimated GFR 58 L, Est GFR ( Amer) 70, Glucose 169 H, Calcium 7.3 L, Total Bilirubin 0.3, AST 21, ALT 17, Alkaline Phosphatase 69, C-Reactive Protein 10.2 H, Total Protein 4.8 L, Albumin 2.5 L, Globulin 2.3, Albumin/Globulin Ratio 1.1, Procalcitonin 0.123 07/26/20 04:10: Troponin I 0.05 H 07/26/20 04:41: Stool Occult Blood Positive A 07/26/20 07:55: WBC 26.1 H*, RBC 2.68 L, Hgb 8.3 L D, Hct 25.4 L, MCV 94.8 H, MCH 31.1, MCHC 32.8, RDW 13.9, Plt Count 149, MPV 8.5, Neut % (Auto) 87.4 H, Lymph % (Auto) 6.6 L, [place] % (Auto) 5.4, Eos % (Auto) 0.4, Baso % (Auto) 0.2, Neut # (Auto) 22.9 H, Lymph # (Auto) 1.7, [place] # (Auto) 1.4 H, Eos # (Auto) 0.1, Baso # (Auto) 0.1 07/26/20 07:55: Crossmatch (AHG) See Detail Result diagrams: 07/26/20 07:55 07/26/20 04:10 Orders (Tests/Meds): ED MEDICATIONS Discontinued Medications Generic Name Dose Route Start Last Admin Trade Name Freq PRN Reason Stop Dose Admin Sodium Chloride 1,000 mls @ 999 mls/hr 07/26/20 04:30 07/26/20 04:33 Sod Chlor 0.9% 1000ml Bag IV 07/26/20 05:30 999 mls/hr .Q1H1M ZARINA Administration Pantoprazole Sodium 80 mg/ 100 mls @ 100 mls/hr 07/26/20 04:25 07/26/20 04:32 Sodium Chloride IV 07/26/20 05:24 100 mls/hr ONCE ONE Administration Pantoprazole Sodium 80 mg/ 100 mls @ 10 mls/hr 07/26/20 05:26 Sodium Chloride IV 07/29/20 05:25 .Q10H ZARINA Iopamidol 75 ml 07/26/20 05:38 07/26/20 05:39 Iopamidol-370 (76%);100ml Bottle IV 07/26/20 05:39 75 ml ONCE ONE Administration Sodium Chloride 10 ml 07/26/20 05:38 07/26/20 05:39 Sodium Chloride 0.9% 10ml Syr (Rad Only) IV 07/26/20 05:39 10 ml ONCE ONE Administration ORDERS Category Date Time Status Red Blood Cells Routine BBK 07/26/20 07:55 Received
[2020-07-26 05:08] LABS: Platelet Estimate Normal; RBC Morphology Normal
[2020-07-26 05:10] LABS: Erythrocyte Sedimentation Rate 16 mm/hr (0-20)
--- NOTE | 2020-07-26 05:10 | XR_ITS ---
PROCEDURE: XR PELVIS 1-2V CLINICAL INDICATION: fall Posttraumatic pain COMPARISON: No exams were available for comparison TECHNIQUE: XR Pelvis AP View FINDINGS: No acute fracture or dislocation. There is a gamma nail within the left proximal femur. This device is incompletely image. Contrast is present in the urinary bladder without evidence of extravasation. There has been prior aortobifem stent graft placement. Generalized vascular calcification. No significant degenerative change. No lytic or blastic change. IMPRESSION: No acute findings. Dictated by: Michoacano De León MD 07/26/2020 07:29 Michoacano De León MD in [facility] 07/26/2020 07:29
[2020-07-26 05:35] LABS: Troponin I 0.05 ng/ml (0.00-0.034)
--- NOTE | 2020-07-26 07:32 | PC.NURSE ---
Dr Alcira morrison.
--- NOTE | 2020-07-26 07:46 | PC.NURSE ---
Pt to be admitted to Dr Eli. Per House, bed availability is limited. [facility] will call back with a bed assignment as one comes open.
[2020-07-26 08:25] LABS: Basophils # 0.1 K/mm3 (0-0.2); Basophils % 0.2 % (0.1-2.0); Eosinophils # 0.1 K/mm3 (0.0-0.4); Eosinophils % 0.4 % (0.1-12.0); Hematocrit 25.4 % (42.0-52.0); Lymphocytes # 1.7 K/mm3 (0.7-4.5); Lymphocytes % 6.6 % (10-50); Mean Corpuscular HGB Conc 32.8 g/dL (31.8-35.4); Mean Corpuscular Hemoglobin 31.1 pg (27.0-31.2); Mean Corpuscular Volume 94.8 fl (80-94); Mean Platelet Volume 8.5 fl (7.4-10.4); Monocytes # 1.4 K/mm3 (0.1-1.0); Monocytes % 5.4 % (1.7-9.3); Neutrophils # 22.9 K/mm3 (1.8-7.8); Neutrophils % 87.4 % (37.0-80.0); Platelet Count 149 K/mm3 (142-424); Red Blood Count 2.68 M/mm3 (4.60-6.20); Red Cell Distribution Width 13.9 % (11.5-17.5); White Blood Count 26.1 K/mm3 (4.8-10.8)
[2020-07-26 08:26] LABS: Hemoglobin 8.3 g/dL (14.1-18.0)
[2020-07-26 08:29] LABS: Adenovirus,PCR Not Detected (NotDetected); Bordetella Pertussis Not Detected (NotDetected); Chlamydophila Pneumoniae, PCR Not Detected (NotDetected); Coronavirus 19, PCR Not Detected (NotDetected); Coronavirus 229E Not Detected (NotDetected); Coronavirus NL63 Not Detected (NotDetected); Coronavirus OC43 Not Detected (NotDetected); Coronovirus HKU1,PCR Not Detected (NotDetected); Human Metapneumovirus Not Detected (NotDetected); Influenza A, PCR Not Detected (NotDetected); Influenza AH1, 2009 Not Detected (NotDetected); Influenza AH1, PCR Not Detected (NotDetected); Influenza AH3,PCR Not Detected (NotDetected); Influenza B, PCR Not Detected (NotDetected); Mycoplasma Pneumoniae, PCR Not Detected (NotDetected); Parainfluenza 1, PCR Not Detected (NotDetected); Parainfluenza 2, PCR Not Detected (NotDetected); Parainfluenza 3, PCR Not Detected (NotDetected); Parainfluenza 4, PCR Not Detected (NotDetected); Respiratory Syncytial Virus Not Detected (NotDetected); Rhinovirus/Enterovirus Not Detected (NotDetected)
--- NOTE | 2020-07-26 08:40 | PC.NURSE ---
covid swab has 64 mins left
--- NOTE | 2020-07-26 08:50 | PC.NURSE ---
DR. GUNN AT BEDSIDE.
--- NOTE | 2020-07-26 08:50 | PC.NURSE ---
PT PALE, C/O ABD PAIN AND NAUSEA, PT STATES I'M SO SICK, PLEASE HELP ME PT INCONTINENT OF BLACK STOOL.
--- NOTE | 2020-07-26 09:09 | PC.NURSE ---
Dr Hernandez speaking with surgery insulation blanket maker.
--- NOTE | 2020-07-26 09:10 | PC.NURSE ---
Dr Alcira morrison.
--- NOTE | 2020-07-26 09:12 | PC.NURSE ---
Pt to be getting blood 1 unit to be gotten ready by lab.
--- NOTE | 2020-07-26 09:15 | PC.NURSE ---
Dr Hernandez speaking with Dr Eli
--- NOTE | 2020-07-26 09:20 | PC.NURSE ---
PT'S LINEN CHANGED.
--- NOTE | 2020-07-26 09:27 | PC.NURSE ---
Dr Hernandez speaking with pt's
--- NOTE | 2020-07-26 09:47 | PC.WOUNDNOTE ---
blood is ready
--- NOTE | 2020-07-26 10:10 | PC.NURSE ---
CALLED BODY MECHANIC APPRENTICE ASKED TO GET 1ST UNIT OF PRBC'S AND IV PUMP TO BRING TO ED
--- NOTE | 2020-07-26 10:40 | PC.NURSE ---
Report given to Felisha YANEZ MD aware that transfuse now order needs to be ordered due to current transfuse order is to hold blood.
--- NOTE | 2020-07-26 11:38 | HMH.GSCON ---
*Admission Date: 07/26/20 *Reason for consult:: Gastrointestinal hemorrhage *History of present illness: This is an 85-year-old gentleman seen in consultation from the service of Dr. Eli for evaluation regarding likely upper gastrointestinal hemorrhage. He presented to the emergency department status post falling in his bathroom with additional complaints of increased weakness/melena for at least 24 to 48 hours. Please see HPI forwarded from emergency department evaluation below. Secondary evaluation in the emergency department increased concerns for active blood loss (instability) and the surgical service was once again contacted. Recommendations for immediate transfer to the [facility] were made secondary to lack of large volume gastric evacuation capabilities (possibly limiting endoscopic visualization) and lack of large volume transfusion capabilities at this facility. The patient and his declined transfer. Forwarded from emergency department evaluation: GI Bleed HPI - General Chief complaint: GI Bleed Stated complaint: Fall, suspected GI bleed Time Seen by Provider: 07/26/20 04:30 Mode of Arrival: EMS Source of Information: Patient, Spouse, EMS, Medical Record Limitations: No Limitations Description of Symptoms (Recalled from ER Triage Doc. by RN): Pt fell in the bathroom after having black tarry stools all day. - History of Present Illness HPI Narrative: fell in bathroom this am and has weakness and reported dark stool MD complaint: melena Onset (ago): day(s) Associated symptoms: denies other symptoms Treatments Prior to Arrival: none Review of Systems - Constitutional Reports lack of energy - *Cardiovascular Denies chest pain - *Respiratory Denies cough - *Gastrointestinal Reports black, tarry stools - *Genitourinary Denies blood in urine - *Neurologic Denies seizure-like activity - Hematologic/Lymphatic Denies easy bruising [facility] History Medical History: Reports:: Atrial Fibrillation, Chronic Obstructive Pulmonary Disease (COPD), Hyperlipidemia, Hypertension, Myocardial Infarction Denies:: Cancer, Diabetes Mellitus Type 1, Diabetes Mellitus Type 2, MRSA, Seizures *Have you ever received a pneumonia vaccine?: No *Have you received a flu vaccine this season?: No Laterality Cases: Left: Arthroscopy Hip Other Surgeries: Yes: CABG, Cardiac Catheterization, Cardiac Surgery, Open Heart Surgery Amputation: No - *Social History Smoking Status: Former smoker Tobacco Type: cigarettes # Packs/Day (cigarettes): 1 Alcohol Intake: never *Occupational Status:: retired Housing: house Household Members: spouse *Travel in the last 8 weeks: None Family Hx:: Diabetes Meds Home Medications Medication Instructions Recorded Confirmed Type Atorvastatin Calcium [Lipitor 40mg 40 mg PO HS 10/30/18 07/26/20 History Tab] Hydrocodone/Acetaminophen 1 tab PO Q6HP PRN 10/30/18 07/26/20 History [Hydrocodone-Acetamin 7.5-325] Aspirin [Aspirin 81mg EC Tab] 81 mg PO DAILY 07/17/20 07/26/20 History carvediloL [Carvedilol 6.25mg Tab] 6.25 mg PO BID 07/17/20 07/26/20 History lisinopriL [Lisinopril] 10 mg PO DAILY 07/17/20 07/26/20 History Acetaminophen [Acetaminophen 325mg 650 mg PO Q4HP PRN tab 07/22/20 07/26/20 Rx tab] Ipratropium/Albuterol Sulfate 2 puffs IH QID PRN 30 Days #1 inh 07/22/20 07/26/20 Rx [Combivent Respimat Inh] Morphine Sulfate [Roxanol 20mg/mL 10 mg PO Q6HP PRN 30 Days #100 ml 07/22/20 07/26/20 Rx 1mL oral solution UDC] Citalopram Hydrobromide 20 mg PO DAILY 07/26/20 07/26/20 History [Citalopram 20mg Tablet] levoFLOXacin [Levofloxacin 750MG 750 mg PO DAILY 07/26/20 07/26/20 History Tablet*] predniSONE [Deltasone 10mg tablet] 40 mg PO DAILY 07/26/20 07/26/20 History Allergies Allergy/AdvReac Type Severity Reaction Status Date / Time Penicillins [PENICILLINS] Allergy Unknown Verified 07/26/20 11:18 Sulfa (Sulfonamide Allergy Unknown Ve
--- NOTE | 2020-07-26 12:50 | HMH.HP ---
*Admission Date: 07/26/20 *Chief complaint: melenic stools *History of present illness: Mr. Lugo is an 85-year-old male who recently admitted for severe COPD exacerbation and increased oxygen requirement. Gradually improved to meet criteria for discharge home. Was discharged home with hospice due to end-stage COPD. Was completing a course of steroids at home and has developed over the past 24 hours dark black sticky stool. Was brought to the ER due to concern for melenic stool and episode of passing out on the commode this morning. On presentation was found to have stool guaiac positive, drop in hemoglobin by over 2 points from recent discharge. Elevated BUN with stable creatinine. Findings consistent with upper GI bleed. Surgery was consulted for possible EGD. Given complexity of patient, concern for possible need of large-volume transfusion, transfer was discussed with family. They prefer to keep patient at [facility]. Admitted for management of upper GI bleed. Typed and crossed in the ER, will initiate transfusion. Admitted to medicine for further management. On assessment after arriving to the floor, patient appears to be at baseline respiratory status. Is pale. Denies any chest pain or worsening shortness of breath. Does complain of some moderate abdominal discomfort. Has had a second melenic stool since admission. No syncope, nausea, vomiting. No hematemesis. at bedside states that he has been dealing with heartburn symptoms for some time and they have gotten worse since recent admission and starting steroids. She is concerned he has an ulcer. [facility] History I have reviewed the patient's past medical history: Yes Medical History: Reports:: Atrial Fibrillation, Chronic Obstructive Pulmonary Disease (COPD), Hyperlipidemia, Hypertension, Myocardial Infarction Denies:: Cancer, Diabetes Mellitus Type 1, Diabetes Mellitus Type 2, MRSA, Seizures *Have you ever received a pneumonia vaccine?: No *Have you received a flu vaccine this season?: No Laterality Cases: Left: Arthroscopy Hip Other Surgeries: Yes: CABG, Cardiac Catheterization, Cardiac Surgery, Open Heart Surgery Amputation: No - *Social History Smoking Status: Former smoker Tobacco Type: cigarettes # Packs/Day (cigarettes): 1 Alcohol Intake: never *Occupational Status:: retired Housing: house Household Members: spouse *Travel in the last 8 weeks: None Family Hx:: Diabetes Review of Systems - Review of Systems Review of systems:: pertinent systems reviewed and negative unless documented below (14 point review of systems performed, pertinent positives and negatives as per HPI) - *Neurologic Denies seizure-like activity Meds Home Medications Medication Instructions Recorded Confirmed Type Atorvastatin Calcium [Lipitor 40mg 40 mg PO HS 10/30/18 07/26/20 History Tab] Hydrocodone/Acetaminophen 1 tab PO Q6HP PRN 10/30/18 07/26/20 History [Hydrocodone-Acetamin 7.5-325] Aspirin [Aspirin 81mg EC Tab] 81 mg PO DAILY 07/17/20 07/26/20 History carvediloL [Carvedilol 6.25mg Tab] 6.25 mg PO BID 07/17/20 07/26/20 History lisinopriL [Lisinopril] 10 mg PO DAILY 07/17/20 07/26/20 History Acetaminophen [Acetaminophen 325mg 650 mg PO Q4HP PRN tab 07/22/20 07/26/20 Rx tab] Ipratropium/Albuterol Sulfate 2 puffs IH QID PRN 30 Days #1 inh 07/22/20 07/26/20 Rx [Combivent Respimat Inh] Morphine Sulfate [Roxanol 20mg/mL 10 mg PO Q6HP PRN 30 Days #100 ml 07/22/20 07/26/20 Rx 1mL oral solution UDC] Citalopram Hydrobromide 20 mg PO DAILY 07/26/20 07/26/20 History [Citalopram 20mg Tablet] levoFLOXacin [Levofloxacin 750MG 750 mg PO DAILY 07/26/20 07/26/20 History Tablet*] predniSONE [Deltasone 10mg tablet] 40 mg PO DAILY 07/26/20 07/26/20 History Allergies Allergy/AdvReac Type Severity Reaction Status Date / Time Penicillins [PENICILLINS] Allergy Unknown Verified 07/26/20 11:18 Sulfa (Sulfonamide Allergy Unknown V
--- NOTE | 2020-07-26 13:21 | PC.NURSE ---
PER MD NOVOA, INSERT [facility] AND INFUSE ONE MORE UNIT FOR A TOTAL OF 2.
--- NOTE | 2020-07-26 17:19 | PC.NURSE ---
Addendum entered by Felisha Nolen RN 07/26/20 18:50: NO BM'S SINCE ARRIVAL TO FLOOR. Original Note: pt has done ok since arrival to floor. he is A&Ox4 but very weak and request his to sign papers for him. he wishes to be a DNR, blood consent signed, and consent for procedure tomorrow is signed as well. pt has tolerated the first unit of prbc well and currently infusing second unit. abraham draining clear urine. pt has no complaints. vss. safety in place, call light within reach. will cont. to monitor.
[2020-07-26 17:36] LABS: Microscopic,Cath URINE MICROSCOPIC (MICROSCOPIC)
[2020-07-26 17:50] LABS: Appearance,Urine/Cath CLEAR (Clear); Bilirubin,Cath Negative (Negative); Blood, Urine/Cath Negative (Negative); Color,Urine/Cath YELLOW (Yellow); Glucose,Urine/Cath (UA) Negative (Negative); Ketones,Urine/Cath Negative (Negative); Leukocyte Esterase,Cath Negative (Negative); Nitrate,Cath Negative (Negative); PH,Urine/Cath 5.5 (5.0-8.5); Protein,Urine/Cath Negative (Negative); Urobilinogen,Cath 0.2 EU/dl (0.2)
[2020-07-26 18:06] LABS: Bacteria,Urine/Cath TRACE /lpf; WBC,Urine/Cath Occasional #/hpf (0-3)
[2020-07-26 20:13] LABS: Hematocrit 29.1 % (42.0-52.0); Hemoglobin 9.8 g/dL (14.1-18.0)
[2020-07-27] VITALS (17 sets, daily range): BP systolic 102–162; BP diastolic 51–88; PULSE 64–91; RESP 12–20; TEMP 36.1–37.3; O2SAT 94–99
--- NOTE | 2020-07-27 04:30 | PC.NURSE ---
Pt is a&O x3. Has not c/o any soa. Did c/o abdominal discomfort early in shift. Medicated per jun. Pt is currently on 2L O2 NC. Lungs noted to have rhonchi and wheezing. BS active. No stool at this time. Pt is currently NPO for AM procedure. Consent on chart. NS infusing @ 50 ml/hr. VSS. No other concerns. Will continue to monitor.
--- NOTE | 2020-07-27 08:05 | P.PN_ITS ---
Subjective Patient reports: no new complaints, feels better Progress Note: A&P (1) Acute blood loss anemia Status: Acute Assessment and plan: Follow-up a.m. labs (2) Upper gastrointestinal hemorrhage Status: Acute Assessment and plan: Esophagogastroduodenoscopy this morning (3) End stage COPD Status: Chronic (4) Chronic hypoxemic respiratory failure Status: Chronic (5) Heartburn Status: Chronic (6) CKD (chronic kidney disease) stage 3, GFR 30-59 ml/min Status: Chronic Exam Vital signs and Labs for Last 24 Hours: Temp Pulse Resp BP Pulse Ox 98.4 F 64 16 140/65 98 07/27/20 07:59 07/27/20 07:59 07/27/20 07:59 07/27/20 07:59 07/27/20 07:59 Laboratory Results - last 24 hr 07/26/20 04:10: Blood Type Confirm O Negative 07/26/20 07:54: Chlamy pneumoniae PCR Not detected, Adenovirus (PCR) Not detected, B. pertussis DNA (PCR) Not detected, Coronavirus OC43 (PCR) Not detected, Coronavirus HKU1 (PCR) Not detected, Coronavirus 229E (PCR) Not detected, SARS-CoV-2 (PCR) Not detected, Coronavirus NL63 (PCR) Not detected, Human Metapneumovir PCR Not detected, Influenza A (H1) PCR Not detected, Influ A (H1N1/09) PCR Not detected, Influenza A (H3) PCR Not detected, Influenza Type A (PCR) Not detected, Influenza Type B (PCR) Not detected, M. pneumoniae (PCR) Not detected, Parainfluenza 1 (PCR) Not detected, Parainfluenza 2 (PCR) Not detected, Parainfluenza 3 (PCR) Not detected, Parainfluenza 4 (PCR) Not detected, RSV (PCR) Not detected, Entero/Rhino (PCR) Not detected 07/26/20 07:55: WBC 26.1 H*, RBC 2.68 L, Hgb 8.3 L D, Hct 25.4 L, MCV 94.8 H, MCH 31.1, MCHC 32.8, RDW 13.9, Plt Count 149, MPV 8.5, Neut % (Auto) 87.4 H, Lymph % (Auto) 6.6 L, [place] % (Auto) 5.4, Eos % (Auto) 0.4, Baso % (Auto) 0.2, Neut # (Auto) 22.9 H, Lymph # (Auto) 1.7, [place] # (Auto) 1.4 H, Eos # (Auto) 0.1, Baso # (Auto) 0.1 07/26/20 07:55: Blood Type O Negative, Antibody Screen Negative, Crossmatch (AHG) See Detail 07/26/20 14:50: Urine Color Yellow, Urine Appearance Clear, Urine pH 5.5, Ur Specific [place] 1.010, Urine Protein Negative, Urine Glucose (UA) Negative, Urine Ketones Negative, Urine Blood Negative, Urine Nitrate Negative, Urine Bilirubin Negative, Urine Urobilinogen 0.2, Ur Leukocyte Esterase Negative, Urine RBC None, Urine WBC Occasional, Ur Squamous Epith Cells None, Urine Bacteria Trace 07/26/20 20:00: Hgb 9.8 L D, Hct 29.1 L I & O for Last 24 hours: Intake & Output 07/24/20 07/25/20 07/26/20 07/27/20 11:59 11:59 11:59 11:59 Intake Total 0 / 0 600 / 600 Output Total 1680 / 1680 Balance 0 / 0 -1080 / -1080 Weight 144 lb 2 oz Narrative: Received 2 units of packed red blood cells yesterday. Morning labs pending. - Constitutional no acute distress - *Routine Respiratory Exam Absent: respiratory distress - *Routine Cardiovascular Exam Comments: Regular rate - *Routine Abdominal Exam Present: soft
--- NOTE | 2020-07-27 08:30 | PC.NURSE ---
PT OFF FLOOR WITH SURGERY STAFF AT THIS TIME.
--- NOTE | 2020-07-27 08:49 | P.CONPHA_ITS ---
[facility] Pharmacy VTE Monitoring - Patient Demographics Admission date: 07/26/20 Report Date: 07/27/20 Time: 08:49 Allergies/Adverse Reactions: Patient Allergies Penicillins [PENICILLINS] Allergy (Unknown, Verified 07/26/20 11:18) Sulfa (Sulfonamide Antibiotics) [SULFA (SULFONAMIDE ANTIBIOTICS)] Allergy (Unknown, Verified 07/26/20 11:18) Height: 1.78 m Weight: 65.374 kg Patient Problems: Current Active Problems COPD (chronic obstructive pulmonary disease) (Acute) Upper gastrointestinal hemorrhage (Acute) Acute blood loss anemia (Acute) End stage COPD (Chronic) Chronic hypoxemic respiratory failure (Chronic) Heartburn (Chronic) CKD (chronic kidney disease) stage 3, GFR 30-59 ml/min (Chronic) - VTE Risk Labs: VTE Related Lab Results Hgb 9.8 g/dL (14.1-18.0) L D 07/26/20 20:00 Hct 29.1 % (42.0-52.0) L 07/26/20 20:00 Plt Count 149 K/mm3 (142-424) 07/26/20 07:55 BUN 49 mg/dl (9-20) H 07/26/20 04:10 Creatinine 1.20 mg/dl (0.66-1.25) 07/26/20 04:10 Estimated Creat Clear 40 mL/min (50-200) 07/26/20 04:10 VTE Score: 8 VTE Risk Level: Moderate Risk - Prophylaxis VTE Prophylaxis Ordered?: Yes Types of VTE Prophylaxis: TEDS Knee High Location of Applied Device: Bilateral Lower Extremeties
--- NOTE | 2020-07-27 08:52 | HMH.SCOPE ---
- Procedure: Date: 07/27/20 Patient Date of :: 1935 Procedure Performed:: Esophagogastroduodenoscopy with biopsy Indications:: Upper gastrointestinal hemorrhage Performing Provider:: Robert Means MD Referring Provider:: Dr. Eli Sedation:: Monitored anesthesia care Procedure:: After informed consent was obtained the patient was taken to the endoscopy suite. Sedation ensued after the patient was transferred to the left lateral decubitus position. Pulse, blood pressure, and oxygen saturation were monitored throughout the procedure. The endoscope was advanced beyond the duodenal bulb. Retroflexion within the gastric lumen was accomplished. The gastroscope was carefully removed and the patient was transferred to recovery in stable condition. Please see findings and specimens below for detail. Findings:: No sign of active or recent hemorrhage Minimal gastritis Duodenal ulcer (8mm) with fibrinous exudate at the base. No visible vessel or sign of active bleeding. Specimens:: Antral biopsy Recommendations:: Continue proton pump inhibition and Carafate Consider Cytotec Follow-up pathology Complications:: No immediate Estimated blood obtained (mL): 1
--- NOTE | 2020-07-27 10:27 | HMH.ANESCL ---
[facility] Anesthesia Checklist - Patient Identification Patient Identification: Arm Band - Structural Data Admitted From: Inpatient Planned Operative Procedure/s: EGD Consent for Planned Operative Procedure(s) Verified: Yes Verified Documents: Surgical Consent, History and Physical - NPO Status Verified Time NPO: 00:00 - Airway Assessment C-Spine Mobility Assessed: Yes TMJ Mobility Assessed: Yes Dentition: Good Dentition - Neurological Assessment Level of Consciousness: Awake, Alert - Anesthesia Plan Anesthesia Risk discussed: Yes Anesthesia Plan: Verified ASA Class: III Anesthesia Type: MAC [facility] History Medical History: Reports:: Atrial Fibrillation, Chronic Obstructive Pulmonary Disease (COPD), Hyperlipidemia, Hypertension, Myocardial Infarction Denies:: Cancer, Diabetes Mellitus Type 1, Diabetes Mellitus Type 2, MRSA, Seizures *Have you ever received a pneumonia vaccine?: No *Have you received a flu vaccine this season?: No Anesthesia experience/problems:: None Laterality Cases: Left: Arthroscopy Hip Other Surgeries: Yes: CABG, Cardiac Catheterization, Cardiac Surgery, Open Heart Surgery Amputation: No - *Social History Smoking Status: Former smoker Tobacco Type: cigarettes # Packs/Day (cigarettes): 1 Alcohol Intake: never Substance Use Type: denies use *Occupational Status:: retired Housing: house Household Members: spouse *Travel in the last 8 weeks: None Family Hx:: Diabetes
--- NOTE | 2020-07-27 11:10 | HMH.PHAINT ---
HOME MEDICATIONS RECONCILED FROM RECENT DISCHARGE LIST FROM [facility] ON 07/22/20.
--- NOTE | 2020-07-27 13:15 | HMH.ACPN2 ---
Internal Medicine - PN: Subj *Date: 07/27/20 *Time: 13:15 Interval history: Patient did well overnight. Had EGD this morning which identified a duodenal ulcer nonbleeding. Single episode of smear of stool overnight that was dark. No significant stool output however. Refused labs this morning. Tolerating clear liquid diet after his EGD. Still having a sore throat. Belly pain stable. Breathing stable. Exam Vital signs and Labs for Last 24 Hours: Temp Pulse Resp BP Pulse Ox 98.9 F 78 17 162/88 H 99 07/27/20 11:25 07/27/20 11:25 07/27/20 11:25 07/27/20 11:25 07/27/20 11:25 Laboratory Results - last 24 hr 07/26/20 07:55: Blood Type O Negative, Antibody Screen Negative, Crossmatch ([facility]) See Detail 07/26/20 14:50: Urine Color Yellow, Urine Appearance Clear, Urine pH 5.5, Ur Specific [place] 1.010, Urine Protein Negative, Urine Glucose (UA) Negative, Urine Ketones Negative, Urine Blood Negative, Urine Nitrate Negative, Urine Bilirubin Negative, Urine Urobilinogen 0.2, Ur Leukocyte Esterase Negative, Urine RBC None, Urine WBC Occasional, Ur Squamous Epith Cells None, Urine Bacteria Trace 07/26/20 20:00: Hgb 9.8 L D, Hct 29.1 L I & O for Last 24 hours: Intake & Output 07/24/20 07/25/20 07/26/20 07/27/20 23:59 23:59 23:59 23:59 Intake Total 600 / 600 300 / 300 Output Total 680 / 1680 1680 / 1680 Balance -80 / -1080 -1380 / -1380 Weight 65.374 kg Narrative: - Constitutional minimal distress, average body habitus, chronically ill appearing - *Routine HEENT Exam Head: Present: normocephalic Eye: Present: EOMI, PERRL, proptosis (On right) ENT: Present: mucous membranes moist Comments: Thrush in mouth, white plaques present - *Routine Neck Exam Present: supple, lymphadenopathy (Right submandibular lymph node that is mildly tender to palpation) - *Routine Respiratory Exam Present: accessory muscle use, prolonged expiratory phase, rhonchi, wheezes, crackles, diminished air movement - *Routine Cardiovascular Exam Present: RRR - *Routine Abdominal Exam Present: soft, normoactive bowel sounds, tenderness (Moderate epigastric tenderness) - *Routine Extremities Exam Absent: cyanosis, clubbing, edema - *Routine Skin Exam Present: pallor, warm. Absent: rash - *Routine Neurological Exam Present: alert, oriented X3 Assessment and Plan (1) Acute blood loss anemia Status: Acute Category: Medical Code(s): D62 - Acute posthemorrhagic anemia (2) Upper gastrointestinal hemorrhage Status: Acute Category: Medical Code(s): K92.2 - Gastrointestinal hemorrhage, unspecified (3) End stage COPD Status: Chronic Category: Medical Code(s): J44.9 - Chronic obstructive pulmonary disease, unspecified (4) Chronic hypoxemic respiratory failure Status: Chronic Category: Medical Code(s): J96.11 - Chronic respiratory failure with hypoxia (5) Heartburn Status: Chronic Category: Medical Code(s): R12 - Heartburn (6) CKD (chronic kidney disease) stage 3, GFR 30-59 ml/min Status: Chronic Category: Medical Code(s): N18.30 - Chronic kidney disease, stage 3 unspecified - Assessment and plan all Dx Assessment and Plan for all problems:: 85-year-old male with end-stage COPD who presented with concern for upper GI bleed. EGD this morning identifying nonbleeding duodenal ulcer. No further episodes of bleeding. Hemoglobin responded well to transfusion. We will continue Protonix twice daily IV at this time. Continue sucralfate orally. Will advance diet today. Patient has declined any further labs. If remains hemodynamically stable, continues to tolerate advancement in diet, will plan to discharge home with oral sucralfate and Protonix. Currently on empiric cefepime to cover for recent pneumonia and due to GI bleed however further treatment decision to be determined tomorrow prior to discharge. Would defer any steroids at this time. No further aspirin at this time ei
--- NOTE | 2020-07-27 16:14 | PC.NURSE ---
PT HAS HAD A GOOD DAY TODAY. HE HAS C/O BACK PAIN, MEDICATION ADMIN PER MAR WITH ADEQUATE RELIEF. PT STATES HE FEELS BETTER THAN WHEN HE CAME IN, IN BETTER SPIRITS TOWARDS STAFF. PT ANTICIPATES GOING HOME TOMORROW. HAS BEEN TURNED Q2HR/PRN ALLOWED BY PT. PT REFUSED LAB WORK TO BE DONE TODAY, IS AWARE AND PLACED NEW ORDERS. VSS. SAFETY IN PLACE. CALL LIGHT WITHIN REACH. WILL CONT. TO MONITOR.
[2020-07-28] VITALS: BP 147/71; PULSE 69; RESP 22; TEMP 36.8; O2SAT 99
[2020-07-28 04:00] VITALS: BP 150/64; PULSE 95; RESP 20; TEMP 36.8; O2SAT 98
--- NOTE | 2020-07-28 04:11 | PC.NURSE ---
Pt has slept at intervals this shift. C/O tenderness to abdomen x2. No stools noted this shift. Pt has only had 250 ml urine output thus far. VSS. Pt remains on 2 L O2 NC. Lungs noted to have rhonchi and wheezing t/o. BS active. Call light within reach. Will continue to monitor.
[2020-07-28 05:00] VITALS: BMI 20.6
[2020-07-28 08:00] VITALS: BP 123/50; PULSE 73; RESP 16; TEMP 36.8; O2SAT 97
--- NOTE | 2020-07-28 08:09 | HMH.GSPN ---
Subjective Patient reports: feels better (Patient states that he is going home today ) Progress Note: A&P (1) Acute blood loss anemia Status: Acute (2) Upper gastrointestinal hemorrhage Status: Acute Assessment and plan: Likely from duodenal ulcer. No sign of active bleeding on recent EGD. (3) End stage COPD Status: Chronic (4) Chronic hypoxemic respiratory failure Status: Chronic (5) Heartburn Status: Chronic (6) CKD (chronic kidney disease) stage 3, GFR 30-59 ml/min Status: Chronic (7) Duodenal ulcer Status: Acute Assessment and plan: Continue Protonix/Carafate Exam Vital signs and Labs for Last 24 Hours: Temp Pulse Resp BP Pulse Ox 98.3 F 95 H 20 150/64 H 98 07/28/20 04:00 07/28/20 04:00 07/28/20 04:00 07/28/20 04:00 07/28/20 04:00 I & O for Last 24 hours: Intake & Output 07/25/20 07/26/20 07/27/20 07/28/20 11:59 11:59 11:59 11:59 Intake Total 0 / 0 600 / 600 300 / 300 Output Total 1930 / 1930 930 / 930 Balance 0 / 0 -1330 / -1330 -630 / -630 Weight 144 lb 2 oz 144 lb 3.2 oz - Constitutional no acute distress - *Routine Respiratory Exam Absent: respiratory distress - *Routine Cardiovascular Exam Comments: Regular rate
--- NOTE | 2020-07-28 08:33 | HMH.DCSUM ---
General - General Admission date:: 07/26/20 Discharge date: 07/28/20 HPI HPI: Mr. Lugo is an 85-year-old male who recently admitted for severe COPD exacerbation and increased oxygen requirement. Gradually improved to meet criteria for discharge home. Was discharged home with hospice due to end-stage COPD. Was completing a course of steroids at home and has developed over the past 24 hours dark black sticky stool. Was brought to the ER due to concern for melenic stool and episode of passing out on the commode this morning. On presentation was found to have stool guaiac positive, drop in hemoglobin by over 2 points from recent discharge. Elevated BUN with stable creatinine. Findings consistent with upper GI bleed. Surgery was consulted for possible EGD. Given complexity of patient, concern for possible need of large-volume transfusion, transfer was discussed with family. They prefer to keep patient at [facility]. Admitted for management of upper GI bleed. Typed and crossed in the ER, will initiate transfusion. Admitted to medicine for further management. On assessment after arriving to the floor, patient appears to be at baseline respiratory status. Is pale. Denies any chest pain or worsening shortness of breath. Does complain of some moderate abdominal discomfort. Has had a second melenic stool since admission. No syncope, nausea, vomiting. No hematemesis. at bedside states that he has been dealing with heartburn symptoms for some time and they have gotten worse since recent admission and starting steroids. She is concerned he has an ulcer. Hospital Course Hospital Course: Patient was admitted, steroids were held, surgery was consulted and performed upper endoscopy, appreciate input and procedure. Found to have nonbleeding duodenal ulcer but no active bleeding. Patient tolerated procedure well. Patient overnight was treated with Protonix and Carafate, felt much better, tolerated a [employer] sandwich this morning without heartburn and wished to be discharged home. Patient will be discharged in the care of his and with hospice services. He will continue twice daily Protonix, 4 times daily Carafate and I have recommended that he wean his prednisone down to 10 mg daily for 3 days and then discontinue. Objective Vital signs: Temp Pulse Resp BP Pulse Ox 98.3 F 95 H 20 150/64 H 98 07/28/20 04:00 07/28/20 04:00 07/28/20 04:00 07/28/20 04:00 07/28/20 04:00 mild distress, thin, chronically ill appearing - *Routine HEENT Exam Head: Present: normocephalic Eye: Present: EOMI, PERRL. Absent: conjunctivae pink ENT: Present: mucous membranes moist - *Routine Neck Exam Present: supple - *Routine Respiratory Exam Present: prolonged expiratory phase, wheezes - *Routine Cardiovascular Exam Present: RRR - *Routine Abdominal Exam Present: soft, normoactive bowel sounds. Absent: tenderness - *Routine Extremities Exam Absent: cyanosis, clubbing, edema - *Routine Skin Exam Present: warm. Absent: rash - Detailed Eye Exam Eyelids: Bilateral normal inspection DS: Diagnosis - Discharge Diagnosis (1) Acute blood loss anemia Status: Acute (2) Upper gastrointestinal hemorrhage Status: Resolved (3) End stage COPD Status: Chronic (4) Chronic hypoxemic respiratory failure Status: Chronic (5) Heartburn Status: Chronic (6) CKD (chronic kidney disease) stage 3, GFR 30-59 ml/min Status: Chronic (7) Duodenal ulcer Status: Acute Discharge Plan - Patient Discharge Instructions ACTIVITY: Bed rest DIET: continue same diet Patient Instructions: Chronic Obstructive Pulmonary Disease, DI for Surgical Site Infection, DI for Gastrointestinal Bleeding, Catheter-associated Urinary Tract Infection - Follow up Plan Disposition: Hospice - Home Home Medications: Home Medications Medication Instructions Recorded Confirm
--- NOTE | 2020-07-28 08:49 | SW/DCPLANNER ---
NOTIFIED HOSPICE THAT THIS PATIENT IS DISCHARGING HOME TODAY AND TO LET HIS NURSE IWLIAN CUNNINGHAM KNOW TO SEE PATIENT WHEN HE GETS HOME... AT BEDSIDE...D/C LATER IN THE MORNING...
--- NOTE | 2020-07-28 11:36 | CARE MANAGER ---
Spoke with Dalia at Hospice. Verified Hospice will pay for admission as [facility]'t [facility]. Will change to inpatient per Hospice as they are primary payor. ERI Prado, BSN, CM
== END 2020-07-28 11:00 | disposition hospice, home (50) | DRG 378 ==
LOC: ER 04:24 → ICU 08:42 → 2ND 07-27 07:26 → ICU 07-28 14:40
PROVIDERS: Surgery; Admitting Provider Internal Medicine Adolescent Medicine; Emergency Provider Emergency Medicine; PCP Internal Medicine Adolescent Medicine; Visit Provider Internal Medicine Adolescent Medicine
PROC: 0DJ08ZZ Inspection of Upper Intestinal Tract, Via Natural or Artificial Opening Endoscopic (ICD-10-PCS; CPT 43235; principal; 2020-07-27 08:30)
DX: K26.4 Chronic or unspecified duodenal ulcer with hemorrhage (principal); J96.11 Chronic respiratory failure with hypoxia; D62 Acute posthemorrhagic anemia; J44.9 Chronic obstructive pulmonary disease, unspecified; Z99.81 Dependence on supplemental oxygen; N18.30 Chronic kidney disease, stage 3 unspecified; Z88.0 Allergy status to penicillin; Z88.2 Allergy status to sulfonamides; E78.5 Hyperlipidemia, unspecified; I25.2 Old myocardial infarction; Z95.1 Presence of aortocoronary bypass graft; Z87.891 Personal history of nicotine dependence; B37.9 Candidiasis, unspecified; I12.9 Hypertensive chronic kidney disease with stage 1 through stage 4 chronic kidney disease, or unspecified chronic kidney disease; Z66 Do not resuscitate; K29.70 Gastritis, unspecified, without bleeding
CPT/HCPCS: 43239; 71045; 72170; 74177; 80053; 81001; 82272; 84145; 84484; 85007; 85014; 85018; 85025; 85651; 86140; 86850; 87581; 87633; 87798; 88305; 93005; 94640; 94760; 96365; 96367; 96375; 99284; G0328; G0378; J0692; J2405; P9016; Q9967

== ENCOUNTER 2020-08-04 12:03 | Inpatient (IN) | payer OTHER, MEDICARE, SELFPAY ==
[2020-08-04] VITALS (29 sets, daily range): BP systolic 107–143; BP diastolic 40–90; PULSE 70–91; RESP 14–21; TEMP 36.4–37.1; O2SAT 95–98; BMI 28.7; BMI 19.8
--- NOTE | 2020-08-04 12:13 | PC.NURSE ---
lab at bedside
--- NOTE | 2020-08-04 12:31 | CT_ITS ---
PROCEDURE INFORMATION: Exam: CT Abdomen And Pelvis With Contrast Exam date and time: 08/04/2020 12:31 PM Age: 85 years old Clinical indication: Abdominal pain; Generalized TECHNIQUE: Imaging protocol: Computed tomography of the abdomen and pelvis with contrast. Radiation optimization: All CT scans at this facility use at least one of these dose optimization techniques: automated exposure control; mA and/or kV adjustment per patient size (includes targeted exams where dose is matched to clinical indication); or iterative reconstruction. Contrast material: ISO 370; Contrast volume: 75 ml; Contrast route: INTRAVENOUS (IV); COMPARISON: CT ABDOMEN PELVIS W CON 07/26/2020 5:27 AM FINDINGS: Lungs: Persistent interstitial scarring or less likely likely ground-glass opacity in the left lingula, and mild posterior lower pulmonary interstitial prominence. No focal consolidation. Chronic right middle lobe calcified granuloma. Pleural spaces: Small bilateral low-density pleural effusions have enlarged compared with the prior exam. Liver: No hepatomegaly. Calcified granuloma. No suspicious mass. Gallbladder and bile ducts: The gallbladder is unremarkable. No calcified stones or biliary dilatation. Pancreas: Pancreas atrophy. No mass or ductal dilatation. No acute inflammatory changes. Spleen: No splenomegaly. Multiple calcified granulomas. Adrenal glands: Normal. No mass. Kidneys and ureters: Ill-defined wedge-shaped focus of diminished attenuation in the lateral upper pole of the right kidney again noted, differential would be renal infarct versus infection, less likely neoplasm as there is no significant mass effect and parenchyma appears atrophic. Multiple bilateral renal cortical cystic lesions, largest at the right lower pole of approximately 2.8 cm unchanged, with simple Bosniak 1 appearance, enhanced HU density of 17. Subcentimeter hypoattenuating lesions are probably cysts but too small to accurately characterize. A left lower pole lesion of approximate 9 x 5 mm is too small to accurately characterize, indeterminate density in this lesion of approximately twenty-six HU may be due to volume averaging affect rather than complex cyst or mass, coronal series 601, image 41. No hydronephrosis, hydroureter, or obstructing calcified stones. Stomach and bowel: There is diverticulosis coli, without evidence of acute diverticulitis. Fluid-filled proximal colon loops with air-fluid levels, no dilated loops or significant mucosal thickening. There is less fluid distention of the colon today, compared with the prior exam. Scattered small intestinal air-fluid levels, but no significantly dilated loops or mucosal thickening. No acute gastric findings. The gastric antrum is better distended today, with very mild residual wall thickening seen which could be due to gastric contraction or residual gastritis. A minimal gastric hiatal hernia. Appendix: No findings of appendicitis. Intraperitoneal space: There is no significant free intraperitoneal fluid. Trace free fluid seen in the pelvis on the prior exam has resolved. There is no free intraperitoneal air. Vasculature: Coronary artery calcifications. Chronic infrarenal abdominal aortic aneurysm with an aorta bi-iliac endovascular stent graft, outer diameter of the aortic aneurysm is unchanged at approximately 5.8 x 5.3 cm, and there is no contrast extravasation into the aorta to suggest stent-graft leakage. Stents remain widely patent and enhancing.The abdominal-pelvic vasculature demonstrates scattered mild to moderate atherosclerotic calcification. Patent enhancing portal vein. No portal venous gas. Lymp
--- NOTE | 2020-08-04 12:33 | XR_ITS ---
PROCEDURE: XR CHEST PORTABLE CLINICAL HISTORY: altered mental status COMPARISON: CR XR CHEST PORTABLE from 07/12/2020 CR XR CHEST 2V from 07/16/[address] ANGIO CHEST from 07/20/2020 CR XR CHEST AP from 07/26/2020 FINDINGS: Prior median sternotomy. Normal heart size. There is biapical pleural thickening left greater than right which is chronic in nature with chronic changes in the upper lobes. No lobar consolidation or collapse is evident. No acute bony abnormalities. IMPRESSION: Chronic changes, no change with no acute finding. Dictated by: Michoacano De León MD 08/04/2020 16:13 Michoacano De León MD in OV 08/04/2020 16:13
--- NOTE | 2020-08-04 13:14 | PC.NURSE ---
Hospice nurse here at this time.
--- NOTE | 2020-08-04 13:14 | HMH.EDGENADL ---
ED Disposition Clinical Impression: Upper GI bleed Disposition: Admitted As Inpatient Condition on Discharge: Fair Referrals: Ziggy Plascencia MD [Primary Care Provider] - - Critical Care Critical Care Time: No Attestation: On 08/04/20, the high probability of a clinically significant, sudden or life threatening deterioration of the following system(s) required my full and direct attention, intervention and personal management. The time I documented below is in addition to time spent performing reported procedures but includes the following listed in this critical care notation. Medical Decision Making - Medical Records Medical records reviewed: Yes: I reviewed the patient's medical records. - Amadeo Inquiry Pt receiving controlled substance: No Vital Signs: 08/04/20 12:04 08/04/20 13:00 08/04/20 13:30 Temperature Temperature Source Pulse Rate 73 78 Pulse Rate [Left Radial] 73 Respiratory Rate 18 16 18 TAR Vitals Timing Blood Pressure 125/51 L 107/47 L Blood Pressure [Right Arm] 114/49 L Blood Pressure Mean 75 76 Blood Pressure Mean [Right Arm] 70 Blood Pressure Source Blood Pressure Source [Right Arm] Automatic Cuff Blood Pressure Position Blood Pressure Position [Right Arm] Sitting 02 Sat by Pulse Oximetry 95 95 97 Oxygen Delivery Method Room Air 08/04/20 14:00 08/04/20 14:55 08/04/20 15:00 Temperature Temperature Source Pulse Rate 78 81 81 Pulse Rate [Left Radial] Respiratory Rate 18 14 19 TAR Vitals Timing Blood Pressure 120/52 L 123/50 L 110/45 L Blood Pressure [Right Arm] Blood Pressure Mean 69 74 77 Blood Pressure Mean [Right Arm] Blood Pressure Source Blood Pressure Source [Right Arm] Blood Pressure Position Blood Pressure Position [Right Arm] 02 Sat by Pulse Oximetry 97 95 95 Oxygen Delivery Method 08/04/20 15:15 08/04/20 15:23 08/04/20 15:24 Temperature 98.1 F 98.1 F Temperature Source Oral Oral Pulse Rate 82 83 90 Pulse Rate [Left Radial] Respiratory Rate 20 14 21 TAR Vitals Timing Pre-Blood Vitals Start Vitals Blood Pressure 116/47 L 123/50 L 116/47 L Blood Pressure [Right Arm] Blood Pressure Mean 74 70 Blood Pressure Mean [Right Arm] Blood Pressure Source Automatic Cuff Automatic Cuff Blood Pressure Source [Right Arm] Blood Pressure Position Sitting Sitting Blood Pressure Position [Right Arm] 02 Sat by Pulse Oximetry 96 95 97 Oxygen Delivery Method - Lab Data Lab Results 08/04/20 12:58: WBC 13.1 H, RBC 1.61 L*, Hgb 4.7 L*, Hct 14.8 L*, MCV 92.2, MCH 28.9, MCHC 31.3 L, RDW 18.6 H, Plt Count 182, MPV 8.0, Neut % (Auto) 88.7 H, Lymph % (Auto) 7.1 L, [place] % (Auto) 3.6, Eos % (Auto) 0.7, Baso % (Auto) 0.1, Neut # (Auto) 11.6 H, Lymph # (Auto) 0.9, [place] # (Auto) 0.5, Eos # (Auto) 0.1, Baso # (Auto) 0.0, Total Counted 100, Neutrophils % (Manual) 88 H, Lymphocytes % (Manual) 7 L, Monocytes % (Manual) 4, Eosinophils % (Manual) 1, Platelet Estimate Normal, Hypochromasia 1+ 08/04/20 12:58: PT 12.4, INR 1.06 08/04/20 12:58: Sodium 135 L, Potassium 3.5, Chloride 104, Carbon Dioxide 29, Anion Gap 5.5, BUN 25 H, Creatinine 1.10, Estimated Creat Clear 64, Estimated GFR 64, Est GFR ( Amer) 77, Glucose 105 H, Calcium 7.5 L, Total Bilirubin 0.4, AST 19, ALT 13, Alkaline Phosphatase 62, Total Protein 4.5 L, Albumin 2.2 L, Globulin 2.3, Albumin/Globulin Ratio 1.0 L, Lipase 33 08/04/20 12:58: Lactate 1.1 08/04/20 12:58: Blood Type Confirm O Negative 08/04/20 13:15: Blood Type O Negative, Antibody Screen Negative, Crossmatch ([facility]) See Detail Result diagrams: 08/04/20 12:58 08/04/20 12:58 Orders (Tests/Meds): ED MEDICATIONS Generic Name Dose Route Start Last Admin Trade Name Freq PRN Reason Stop Dose Admin Sodium Chloride 250 mls @ 25 mls/hr 08/04/20 13:45 Sod Chlor 0.9% 250ml Bag IV 08/05/20 13:44 .Q10H ZARINA Discontinued Medications Generic Name Dose Route Start Last Ad
--- NOTE | 2020-08-04 13:16 | PC.NURSE ---
HOSPICE HERE TO SEE PT
[2020-08-04 13:23] LABS: Basophils % 0.1 % (0.1-2.0); Eosinophils # 0.1 K/mm3 (0.0-0.4); Eosinophils % 0.7 % (0.1-12.0); Lymphocytes # 0.9 K/mm3 (0.7-4.5); Lymphocytes % 7.1 % (10-50); Mean Corpuscular HGB Conc 31.3 g/dL (31.8-35.4); Mean Corpuscular Hemoglobin 28.9 pg (27.0-31.2); Mean Corpuscular Volume 92.2 fl (80-94); Monocytes # 0.5 K/mm3 (0.1-1.0); Monocytes % 3.6 % (1.7-9.3); Neutrophils # 11.6 K/mm3 (1.8-7.8); Neutrophils % 88.7 % (37.0-80.0); Platelet Count 182 K/mm3 (142-424); Red Blood Count 1.61 M/mm3 (4.60-6.20); Red Cell Distribution Width 18.6 % (11.5-17.5); White Blood Count 13.1 K/mm3 (4.8-10.8)
[2020-08-04 13:30] LABS: Hematocrit 14.8 % (42.0-52.0)
[2020-08-04 13:34] LABS: MANUAL DIFFERENTIAL MANUAL DIFFERENTIAL (MANUAL DIFF)
[2020-08-04 13:36] LABS: Chloride 104 mmol/L (98-107); Potassium 3.5 mmoL/L (3.5-5.1); Sodium 135 mmol/L (136-145)
[2020-08-04 13:38] LABS: Alanine Aminotransferase 13 U/L (12-78); Alkaline Phosphatase 62 U/L (38-126); Anion Gap 5.5 mEq/L (5-15); Aspartate Amino Transferase 19 U/L (17-59); Bilirubin,Total 0.4 mg/dl (0.2-1.3); Blood Urea Nitrogen 25 mg/dl (9-20); Carbon Dioxide 29 mmol/L (22.0-30.0); Creatinine Clearance Estimated 64 mL/min (50-200); Estimated Glomerular Filt Rate 64 ml/min (>60); GFR (African American) 77 ML/MIN (>60); Lactic Acid 1.1 mmol/L (0.7-2.1)
[2020-08-04 13:39] LABS: Albumin Level 2.2 g/dl (3.5-5.0); Calcium 7.5 mg/dl (8.4-10.2); Globulin 2.3 g/dL (1.3-3.2); Glucose 105 mg/dl (74-100); Lipase 33 U/L (23-300); Total Protein,Serum 4.5 g/dl (6.3-8.2)
[2020-08-04 13:48] LABS: Eosinophils % 1 % (0-3); Lymphocytes % 7 % (10-50); Monocytes % 4 % (2-9); Neutrophils % 88 % (42-76); Total Cells Counted 100
[2020-08-04 13:49] LABS: Hypochromasia 1+
[2020-08-04 13:50] LABS: Platelet Estimate Normal
[2020-08-04 13:51] LABS: INR 1.06 (0.9-1.1); Prothrombin Time 12.4 seconds (10.1-12.5)
[2020-08-04 13:59] LABS: Hemoglobin 4.7 g/dL (14.1-18.0)
[2020-08-04 14:26] LABS: Adenovirus,PCR Not Detected (NotDetected); Bordetella Pertussis Not Detected (NotDetected); Chlamydophila Pneumoniae, PCR Not Detected (NotDetected); Coronavirus 19, PCR Not Detected (NotDetected); Coronavirus 229E Not Detected (NotDetected); Coronavirus NL63 Not Detected (NotDetected); Coronavirus OC43 Not Detected (NotDetected); Coronovirus HKU1,PCR Not Detected (NotDetected); Human Metapneumovirus Not Detected (NotDetected); Influenza A, PCR Not Detected (NotDetected); Influenza AH1, 2009 Not Detected (NotDetected); Influenza AH1, PCR Not Detected (NotDetected); Influenza AH3,PCR Not Detected (NotDetected); Influenza B, PCR Not Detected (NotDetected); Mycoplasma Pneumoniae, PCR Not Detected (NotDetected); Parainfluenza 1, PCR Not Detected (NotDetected); Parainfluenza 2, PCR Not Detected (NotDetected); Parainfluenza 3, PCR Not Detected (NotDetected); Parainfluenza 4, PCR Not Detected (NotDetected); Respiratory Syncytial Virus Not Detected (NotDetected); Rhinovirus/Enterovirus Not Detected (NotDetected)
--- NOTE | 2020-08-04 14:30 | PC.NURSE ---
PT GONE TO CT
[2020-08-04 15:33] LABS: Microscopic, Urine URINE MICROSCOPIC (MICROSCOPIC)
[2020-08-04 15:37] LABS: Appearance,Urine CLEAR (Clear); Bilirubin,Urine Negative (Negative); Blood, Urine Negative (Negative); Color,Urine YELLOW (Yellow); Glucose,Urine (UA) Negative (Negative); Ketones,Urine Negative (Negative); Leukocyte Esterase,Urine Negative (Negative); Nitrate,Urine Negative (Negative); Protein,Urine Negative (Negative); Urobilinogen,Urine 0.2 EU/dl (0.2)
[2020-08-04 16:00] LABS: Bacteria,Urine Trace /lpf
--- NOTE | 2020-08-04 16:25 | PC.NURSE ---
Report given to Lanie HWANG
--- NOTE | 2020-08-04 17:35 | PC.NURSE ---
1631 pt arrived to unit. blood/fluid bags currently empty and nothing to infuse noted.
--- NOTE | 2020-08-04 17:55 | HMH.HP ---
*Admission Date: 08/04/20 *Chief complaint: Blood loss anemia *History of present illness: 85-year-old white male with end-stage COPD who has recently become attached to our service after an admission for COPD exacerbation, readmitted a week and a half ago with GI bleed, found to have upper GI bleeding from gastritis possibly from prednisone use, no active bleeding was noted on endoscopy at that point and patient stabilized and was discharged home under hospice care as previously arranged for his COPD. He has been at home with good follow-up with hospice but yesterday began to have bloating in his abdomen, swelling, abdominal pain, hospice called me, we continued Roxanol and Phenergan and made plans for evaluation today but his noticed multiple episodes of maroon-colored foul-smelling stools over the last 12 to 24 hours and he is becoming extremely weak and dizzy and they presented to the emergency department via EMS. Hemoglobin less than 5 g, evidence of prior blood loss noted. CT scan showed no evidence of ischemic bowel but some evidence of worsening pulmonary effusions. Patient admitted for transfusion and evaluation of GI bleeding [facility] History I have reviewed the patient's past medical history: Yes Medical History: Reports:: Atrial Fibrillation, Chronic Obstructive Pulmonary Disease (COPD), Hyperlipidemia, Hypertension, Myocardial Infarction Denies:: Cancer, Diabetes Mellitus Type 1, Diabetes Mellitus Type 2, MRSA, Seizures *Have you ever received a pneumonia vaccine?: No *Have you received a flu vaccine this season?: No Laterality Cases: Left: Arthroscopy Hip Other Surgeries: Yes: CABG, Cardiac Catheterization, Cardiac Surgery, Open Heart Surgery Amputation: No - *Social History Smoking Status: Former smoker Tobacco Type: cigarettes # Packs/Day (cigarettes): 1 Smoking End Date: 07/10/20 Alcohol Intake: never Substance Use Type: denies use *Occupational Status:: retired Housing: house Household Members: spouse *Travel in the last 8 weeks: None Family Hx:: Diabetes Review of Systems - Review of Systems Review of systems:: unable to obtain Patient is somnolent but when awakened knows who I am and knows where he is, is not happy to be in the hospital but reports that he is extremely tired and fatigued. Denies pain, dyspnea is about the same. Meds Home Medications Medication Instructions Recorded Confirmed Type Atorvastatin Calcium [Lipitor 40mg 40 mg PO HS 10/30/18 08/04/20 History Tab] Hydrocodone/Acetaminophen 1 tab PO Q6HP PRN 10/30/18 08/04/20 History [Hydrocodone-Acetamin 7.5-325] Aspirin [Aspirin 81mg EC Tab] 81 mg PO DAILY 07/17/20 08/04/20 History carvediloL [Carvedilol 6.25mg Tab] 6.25 mg PO BID 07/17/20 08/04/20 History lisinopriL [Lisinopril] 10 mg PO DAILY 07/17/20 08/04/20 History Acetaminophen [Acetaminophen 325mg 650 mg PO Q4HP PRN tab 07/22/20 08/04/20 Rx tab] Ipratropium/Albuterol Sulfate 2 puffs IH QID PRN 30 Days #1 inh 07/22/20 08/04/20 Rx [Combivent Respimat Inh] Morphine Sulfate [Roxanol 20mg/mL 10 mg PO Q6HP PRN 30 Days #100 ml 07/22/20 08/04/20 Rx 1mL oral solution UDC] Citalopram Hydrobromide 20 mg PO DAILY 07/26/20 08/04/20 History [Citalopram 20mg Tablet] levoFLOXacin [Levofloxacin 750MG 750 mg PO DAILY 07/26/20 08/04/20 History Tablet*] Pantoprazole Sodium [Protonix 40mg 40 mg PO BID #60 tab 07/28/20 08/04/20 Rx tablet] predniSONE [Deltasone 10mg tablet] 10 mg PO DAILY #3 tab 07/28/20 08/04/20 Rx Sucralfate [Sucralfate 1gm 1 gm PO ACHS 08/04/20 08/04/20 History Tab] Allergies Allergy/AdvReac Type Severity Reaction Status Date / Time Penicillins [PENICILLINS] Allergy Unknown Verified 07/26/20 11:18 Sulfa (Sulfonamide Allergy Unknown Verified 07/26/20 11:18 Antibiotics) [SULFA (SULFONAMIDE ANTIBIOTICS)] Exam Vital signs and Labs for Last 24 Hours: Temp Pulse Resp BP Pulse Ox 98.2 F 78 16
--- NOTE | 2020-08-04 21:20 | PC.NURSE ---
Claus from lab called and stated that H/H 7.3 and 21.9 respectively. Will call MD to advise.
[2020-08-04 21:21] LABS: Hematocrit 21.9 % (42.0-52.0); Hemoglobin 7.3 g/dL (14.1-18.0)
[2020-08-05] VITALS (35 sets, daily range): BP systolic 88–141; BP diastolic 45–79; PULSE 60–101; RESP 12–18; TEMP 36.2–37.1; O2SAT 95–99; BMI 20.2
--- NOTE | 2020-08-05 00:04 | PC.NURSE ---
When reviewing the Blood for the patient, it was noted that the patient was O negative and the blood was O positive. Went back down to the lab and discussed with the lab personnel and she stated that the blood was approved by the Pathologist Dr. Trimble. Patient is a male with no risk of Rh negative issues as a woman would. Advised rail maintenance worker M Joy and Digital Asset Manager Yary. Will continue to monitor.
--- NOTE | 2020-08-05 05:38 | PC.NURSE ---
Patient Blood is O - and the blood administered is O +. As per the Lab personnel, the Pathologist Dr Trimble approved. Same as the last Unit of blood that was administered. Patient in no acute distress, will continue to monitor.
--- NOTE | 2020-08-05 06:39 | PC.NURSE ---
Patient had 303 for 1 blood administration, and other blood that was not completed included 150 ml
--- NOTE | 2020-08-05 06:57 | HMH.ACPN2 ---
Internal Medicine - PN: Subj *Date: 08/05/20 *Time: 08:44 Interval history: received 4units PRBCs overight. Responded appropriately with increase in HGB to >9. Continues to have melenic stools. Patient feels more energetic this morning however. Stable on room air with appropriate saturations. No acute distress this morning on interview. at bedside on exam. NPO at midnight for anticipated scope today. Complains of some mild abdominal pain. Denies nausea or vomiting. Denies chest pain. Baseline shortness of breath. Exam Vital signs and Labs for Last 24 Hours: Temp Pulse Resp BP Pulse Ox 98.1 F 66 17 114/49 L 97 08/05/20 06:28 08/05/20 06:28 08/05/20 06:28 08/05/20 06:28 08/05/20 06:28 Laboratory Results - last 24 hr 08/04/20 12:58: WBC 13.1 H, RBC 1.61 L*, Hgb 4.7 L*, Hct 14.8 L*, MCV 92.2, MCH 28.9, MCHC 31.3 L, RDW 18.6 H, Plt Count 182, MPV 8.0, Neut % (Auto) 88.7 H, Lymph % (Auto) 7.1 L, [place] % (Auto) 3.6, Eos % (Auto) 0.7, Baso % (Auto) 0.1, Neut # (Auto) 11.6 H, Lymph # (Auto) 0.9, [place] # (Auto) 0.5, Eos # (Auto) 0.1, Baso # (Auto) 0.0, Total Counted 100, Neutrophils % (Manual) 88 H, Lymphocytes % (Manual) 7 L, Monocytes % (Manual) 4, Eosinophils % (Manual) 1, Platelet Estimate Normal, Hypochromasia 1+ 08/04/20 12:58: PT 12.4, INR 1.06 08/04/20 12:58: Sodium 135 L, Potassium 3.5, Chloride 104, Carbon Dioxide 29, Anion Gap 5.5, BUN 25 H, Creatinine 1.10, Estimated Creat Clear 64, Estimated GFR 64, Est GFR ( Amer) 77, Glucose 105 H, Calcium 7.5 L, Total Bilirubin 0.4, AST 19, ALT 13, Alkaline Phosphatase 62, Total Protein 4.5 L, Albumin 2.2 L, Globulin 2.3, Albumin/Globulin Ratio 1.0 L, Lipase 33 08/04/20 12:58: Lactate 1.1 08/04/20 12:58: Blood Type Confirm O Negative 08/04/20 13:15: Blood Type O Negative, Antibody Screen Negative, Crossmatch (AHG) See Detail 08/04/20 14:15: Chlamy pneumoniae PCR Not detected, Adenovirus (PCR) Not detected, B. pertussis DNA (PCR) Not detected, Coronavirus OC43 (PCR) Not detected, Coronavirus HKU1 (PCR) Not detected, Coronavirus 229E (PCR) Not detected, SARS-CoV-2 (PCR) Not detected, Coronavirus NL63 (PCR) Not detected, Human Metapneumovir PCR Not detected, Influenza A (H1) PCR Not detected, Influ A (H1N1/09) PCR Not detected, Influenza A (H3) PCR Not detected, Influenza Type A (PCR) Not detected, Influenza Type B (PCR) Not detected, M. pneumoniae (PCR) Not detected, Parainfluenza 1 (PCR) Not detected, Parainfluenza 2 (PCR) Not detected, Parainfluenza 3 (PCR) Not detected, Parainfluenza 4 (PCR) Not detected, RSV (PCR) Not detected, Entero/Rhino (PCR) Not detected 08/04/20 15:28: Urine Color Yellow, Urine Appearance Clear, Urine pH 6.0, Ur Specific [place] 1.010, Urine Protein Negative, Urine Glucose (UA) Negative, Urine Ketones Negative, Urine Blood Negative, Urine Nitrate Negative, Urine Bilirubin Negative, Urine Urobilinogen 0.2, Ur Leukocyte Esterase Negative, Urine RBC None, Urine WBC 3-5, Ur Squamous Epith Cells 5-10, Urine Bacteria Trace 08/04/20 21:05: Hgb 7.3 L* D, Hct 21.9 L* I & O for Last 24 hours: Intake & Output 08/02/20 08/03/20 08/04/20 08/05/20 23:59 23:59 23:59 23:59 Intake Total 370 / 370 110 / 110 Output Total 1475 / 1475 Balance 370 / 370 -1365 / -1365 Weight 62.709 kg 64.212 kg Narrative: - Constitutional mild distress, chronically ill appearing - *Routine HEENT Exam Head: Present: normocephalic Eye: Present: EOMI, PERRL ENT: Present: mucous membranes dry - *Routine Neck Exam Present: supple. Absent: lymphadenopathy - *Routine Respiratory Exam Present: accessory muscle use, decreased breath sounds, rales Comments: Lung exam at baseline - *Routine Cardiovascular Exam Present: irregularly irregular - *Routine Abdominal Exam Present: soft, distended. Absent: tenderness Comments: Slightly swollen abdomen with bowel sounds but they are hypoactive. mild non focal tenderness throughout abdomen, but most prominent in u
--- NOTE | 2020-08-05 07:24 | P.CONPHA_ITS ---
[facility] Pharmacy VTE Monitoring - Patient Demographics Admission date: 08/04/20 Report Date: 08/05/20 Time: 07:24 Allergies/Adverse Reactions: Patient Allergies Penicillins [PENICILLINS] Allergy (Unknown, Verified 07/26/20 11:18) Sulfa (Sulfonamide Antibiotics) [SULFA (SULFONAMIDE ANTIBIOTICS)] Allergy (Unknown, Verified 07/26/20 11:18) Height: 1.78 m Weight: 64.212 kg Patient Problems: Current Active Problems COPD (chronic obstructive pulmonary disease) (Acute) Acute blood loss anemia (Acute) Chronic hypoxemic respiratory failure (Chronic) Upper GI bleed (Acute) - VTE Risk Labs: VTE Related Lab Results Hgb 7.3 g/dL (14.1-18.0) L* D 08/04/20 21:05 Hct 21.9 % (42.0-52.0) L* 08/04/20 21:05 Plt Count 182 K/mm3 (142-424) 08/04/20 12:58 PT 12.4 seconds (10.1-12.5) 08/04/20 12:58 INR 1.06 (0.9-1.1) 08/04/20 12:58 BUN 25 mg/dl (9-20) H 08/04/20 12:58 Creatinine 1.10 mg/dl (0.66-1.25) 08/04/20 12:58 Estimated Creat Clear 64 mL/min (50-200) 08/04/20 12:58 VTE Score: 2 VTE Risk Level: Very Low Risk - Prophylaxis VTE Prophylaxis Ordered?: Yes Types of VTE Prophylaxis: TEDS Knee High Location of Applied Device: Bilateral Lower Extremeties
[2020-08-05 09:17] LABS: Basophils % 0.2 % (0.1-2.0); Eosinophils # 0.2 K/mm3 (0.0-0.4); Eosinophils % 2.2 % (0.1-12.0); Hematocrit 31.5 % (42.0-52.0); Lymphocytes # 1.7 K/mm3 (0.7-4.5); Lymphocytes % 16.9 % (10-50); Mean Corpuscular Hemoglobin 29.5 pg (27.0-31.2); Mean Corpuscular Volume 89.4 fl (80-94); Mean Platelet Volume 7.6 fl (7.4-10.4); Monocytes # 0.5 K/mm3 (0.1-1.0); Monocytes % 5.2 % (1.7-9.3); Neutrophils # 7.6 K/mm3 (1.8-7.8); Neutrophils % 75.5 % (37.0-80.0); Platelet Count 131 K/mm3 (142-424); Red Blood Count 3.53 M/mm3 (4.60-6.20); Red Cell Distribution Width 16.2 % (11.5-17.5)
[2020-08-05 09:25] LABS: Hemoglobin 10.4 g/dL (14.1-18.0)
[2020-08-05 09:27] LABS: Chloride 103 mmol/L (98-107); Potassium 3.3 mmoL/L (3.5-5.1); Sodium 134 mmol/L (136-145)
[2020-08-05 09:30] LABS: Blood Urea Nitrogen 32 mg/dl (9-20); Creatinine Clearance Estimated 45 mL/min (50-200); Estimated Glomerular Filt Rate 64 ml/min (>60); GFR (African American) 77 ML/MIN (>60)
[2020-08-05 09:31] LABS: Anion Gap 7.3 mEq/L (5-15); Calcium 7.4 mg/dl (8.4-10.2); Carbon Dioxide 27 mmol/L (22.0-30.0); Glucose 95 mg/dl (74-100)
--- NOTE | 2020-08-05 10:05 | HMH.PHAINT ---
MEDICATION RECONCILIATION COMPLETED ON PATIENT USING EXTERNAL FILL HISTORY FROM PHARMACY AND DISCHARGE SUMMARY FROM PREVIOUS ADMISSION. -PETAR ZHANGD
--- NOTE | 2020-08-05 12:29 | HMH.GSCON ---
*Admission Date: 08/04/20 *Reason for consult:: GI bleed *History of present illness: Patient is an 85-year-old male with significant COPD under hospice care. Relatively recently he was admitted with COPD exacerbation. He was then recently readmitted with GI blood loss. During that hospitalization he underwent upper endoscopy by Dr. Means and was noted to have a millimeter clean-based ulcer within the duodenum with no evidence of stigmata of recent bleed. He was discharged home, stable, with hemoglobin 9.8. However he had developed recurrent maroon stools and presented to the emergency department yesterday with a hemoglobin of 4.7. He was admitted for inpatient management and surgical consultation. Review of Systems - Review of Systems Review of systems:: pertinent systems reviewed and negative unless documented below [facility] History I have reviewed the patient's past medical history: Yes Medical History: Reports:: Atrial Fibrillation, Chronic Obstructive Pulmonary Disease (COPD), Hyperlipidemia, Hypertension, Myocardial Infarction Denies:: Cancer, Diabetes Mellitus Type 1, Diabetes Mellitus Type 2, MRSA, Seizures *Have you ever received a pneumonia vaccine?: No *Have you received a flu vaccine this season?: No Laterality Cases: Left: Arthroscopy Hip Other Surgeries: Yes: CABG, Cardiac Catheterization, Cardiac Surgery, Open Heart Surgery Amputation: No - *Social History Smoking Status: Former smoker Tobacco Type: cigarettes # Packs/Day (cigarettes): 1 Smoking End Date: 07/10/20 Alcohol Intake: never Substance Use Type: denies use *Occupational Status:: retired Housing: house Household Members: spouse *Travel in the last 8 weeks: None Family Hx:: Diabetes Meds Home Medications Medication Instructions Recorded Confirmed Type Atorvastatin Calcium [Lipitor 40mg 40 mg PO HS 10/30/18 08/04/20 History Tab] Hydrocodone/Acetaminophen 1 tab PO Q6HP PRN 10/30/18 08/04/20 History [Hydrocodone-Acetamin 7.5-325] Aspirin [Aspirin 81mg EC Tab] 81 mg PO DAILY 07/17/20 08/04/20 History carvediloL [Carvedilol 6.25mg Tab] 6.25 mg PO BID 07/17/20 08/04/20 History lisinopriL [Lisinopril] 10 mg PO DAILY 07/17/20 08/04/20 History Acetaminophen [Acetaminophen 325mg 650 mg PO Q4HP PRN tab 07/22/20 08/04/20 Rx tab] Ipratropium/Albuterol Sulfate 2 puffs IH QID PRN 30 Days #1 inh 07/22/20 08/04/20 Rx [Combivent Respimat Inh] Morphine Sulfate [Roxanol 20mg/mL 10 mg PO Q6HP PRN 30 Days #100 ml 07/22/20 08/04/20 Rx 1mL oral solution UDC] Citalopram Hydrobromide 20 mg PO DAILY 07/26/20 08/04/20 History [Citalopram 20mg Tablet] Pantoprazole Sodium [Protonix 40mg 40 mg PO BID #60 tab 07/28/20 08/04/20 Rx tablet] Sucralfate [Sucralfate 1gm 1 gm PO ACHS 08/04/20 08/04/20 History Tab] Allergies Allergy/AdvReac Type Severity Reaction Status Date / Time Penicillins [PENICILLINS] Allergy Unknown Verified 07/26/20 11:18 Sulfa (Sulfonamide Allergy Unknown Verified 07/26/20 11:18 Antibiotics) [SULFA (SULFONAMIDE ANTIBIOTICS)] Exam Vital signs and Labs for Last 24 Hours: Temp Pulse Resp BP Pulse Ox 98.2 F 66 18 135/51 L 98 08/05/20 07:40 08/05/20 07:40 08/05/20 07:40 08/05/20 07:40 08/05/20 08:00 Laboratory Results - last 24 hr 08/04/20 12:58: WBC 13.1 H, RBC 1.61 L*, Hgb 4.7 L*, Hct 14.8 L*, MCV 92.2, MCH 28.9, MCHC 31.3 L, RDW 18.6 H, Plt Count 182, MPV 8.0, Neut % (Auto) 88.7 H, Lymph % (Auto) 7.1 L, [place] % (Auto) 3.6, Eos % (Auto) 0.7, Baso % (Auto) 0.1, Neut # (Auto) 11.6 H, Lymph # (Auto) 0.9, [place] # (Auto) 0.5, Eos # (Auto) 0.1, Baso # (Auto) 0.0, Total Counted 100, Neutrophils % (Manual) 88 H, Lymphocytes % (Manual) 7 L, Monocytes % (Manual) 4, Eosinophils % (Manual) 1, Platelet Estimate Normal, Hypochromasia 1+ 08/04/20 12:58: PT 12.4, INR 1.06 08/04/20 12:58: Sodium 135 L, Potassium 3.5, Chloride 104, Carbon Dioxide 29, Anion Gap 5.5, BUN 25 H, Creatini
--- NOTE | 2020-08-05 13:11 | HMH.ANESCL ---
[facility] Anesthesia Checklist - Patient Identification Patient Identification: Arm Band - Structural Data Admitted From: Inpatient Planned Operative Procedure/s: EGD Consent for Planned Operative Procedure(s) Verified: Yes - NPO Status Verified Time NPO: 00:00 - Airway Assessment C-Spine Mobility Assessed: No TMJ Mobility Assessed: No Dentition: Edentulous - Neurological Assessment Level of Consciousness: Awake Hx Seizures: No Numbness or tingling in extremities: No - Anesthesia Plan Anesthesia Risk discussed: Yes Anesthesia Plan: Verified ASA Class: IV Anesthesia Type: MAC [facility] History I have reviewed the patient's past medical history: Yes Medical History: Reports:: Atrial Fibrillation, Chronic Obstructive Pulmonary Disease (COPD), Hyperlipidemia, Hypertension, Myocardial Infarction Denies:: Cancer, Diabetes Mellitus Type 1, Diabetes Mellitus Type 2, MRSA, Seizures *Have you ever received a pneumonia vaccine?: No *Have you received a flu vaccine this season?: No Anesthesia experience/problems:: None Laterality Cases: Left: Arthroscopy Hip Other Surgeries: Yes: CABG, Cardiac Catheterization, Cardiac Surgery, Open Heart Surgery Amputation: No - *Social History Smoking Status: Former smoker Tobacco Type: cigarettes # Packs/Day (cigarettes): 1 Smoking End Date: 07/10/20 Alcohol Intake: never Substance Use Type: denies use *Occupational Status:: retired Housing: house Household Members: spouse *Travel in the last 8 weeks: None Family Hx:: Diabetes
--- NOTE | 2020-08-05 14:57 | XR_ITS ---
PROCEDURE: XR ABDOMEN MIN 2V CLINICAL INDICATION: Ulcer Recent EGD COMPARISON: CT CT ANGIO CHEST from 12/18/2019 CR XR CHEST PORTABLE from 07/12/[address] ABDOMEN PELVIS W CON from 07/26/2020 CR XR CHEST AP from 07/26/2020 CR XR CHEST PORTABLE from 08/04/[address] ABDOMEN PELVIS W CON from 08/04/2020 FINDINGS: Bowel gas pattern is nonspecific. Lucency is noted along the lower chest centrally not felt to be related to free air but to pericardial fat pad and overlying lung with scarring. Bowel gas pattern is nonspecific with a few scattered air-fluid levels which may be due to recent EGD with gas insufflation. There has been a prior aortoiliac bifem graft and left hip gamma nail. Urinary bladder is somewhat opacified possibly related to recent CT scan. IMPRESSION: Nonspecific nonacute findings. Dictated by: Michoacano De León MD 08/05/2020 16:08 Michoacano De León MD in OV 08/05/2020 16:08
--- NOTE | 2020-08-05 14:58 | HMH.SCOPE ---
- Procedure: Date: 08/05/20 Patient Date of :: 1935 Procedure Performed:: Esophagogastroduodenoscopy Indications:: Patient is an 85-year-old male with significant COPD under hospice care. Relatively recently he was admitted with COPD exacerbation. He was then recently readmitted with GI blood loss. During that hospitalization he underwent upper endoscopy by Dr. Means on 07/27/2020 and was noted to have a millimeter clean-based ulcer within the duodenum with no evidence of stigmata of recent bleed. He was discharged home, stable, with hemoglobin 9.8. However he had developed recurrent maroon stools and presented to the emergency department yesterday with a hemoglobin of 4.7. He was admitted for inpatient management and surgical consultation. Performing Provider:: Regino Jarvis MD Referring Provider:: Ziggy Plascencia MD Sedation:: MAC sedation Procedure:: Patient was taken to endoscopy procedure room. He was positioned lateral decubitus position. Adequate intravenous sedation was achieved. Olympus endoscope was inserted via the oropharynx advanced through the esophagus. Gastroesophageal junction was encountered at approximately 40 cm from the incisors. Stomach was cannulated and insufflated. There was some bloody fluid within the gastric lumen. Retroflexion was performed which revealed moderately large sliding hiatal hernia. Irrigation was performed throughout the gastric lumen. Pylorus was traversed. Within the duodenal bulb there was a small, approximately 8 mm, crescent-shaped clean shallow ulcer with exudative base. The endoscope was able to be advanced beyond this and in the distal duodenum there was a large amount of blood clot. Thorough irrigation and suctioning was performed. This was unable to be suctioned free. Using the Lance net blood clot was able to be grasped and repeatedly retrieved into the gastric lumen. Ultimately the majority of the clot was removed from the midportion of the duodenum. Remainder of blood was cleaned free with irrigation and suctioning. There was noted to be a duodenal diverticulum in the second portion of the duodenum. Careful evaluation ultimately revealed ulceration in the second part of the duodenum with visible vessel. This was extremely difficult area to visualize and evaluate, let alone perform intervention. Due to the lack of ability to evaluate and access this area with the endoscope, the endoscope was replaced with the side-viewing scope. Even with this it was very difficult to evaluate and assess. It did appear as though there was a small ulcer with visible vessel. There was no active bleeding. Attempt was made to place Hemoclip. Due to the location of the ulcer this was unable to be performed. There was a mucosal tear from attempt to place the clip. Hemoclip was deployed at this location. The side-viewing scope was then replaced with the endoscope once again. The area was reevaluated. Despite multiple attempts due to the anatomical location the area was not able to be clipped. Attempt was made for possible epinephrine injection. Despite multiple attempts this was unsuccessful. However, as noted before, there was no bleeding. At this time the endoscope was withdrawn. Findings:: Moderately large sliding hiatal hernia Duodenal diverticulum Nonbleeding shallow ulcer and duodenal bulb Clotted blood within the duodenum Duodenal ulcer in second portion of duodenum with visible vessel, no active bleeding at this time Recommendations:: Continue proton pump inhibitors Monitor hemoglobin for stability Limit diet May need repeat upper endoscopy Complications:: None immediately apparent Estimated blood obtained (mL): 2
--- NOTE | 2020-08-05 18:41 | PC.NURSE ---
Pt has mainly slept since coming back to the floor from EGD this afternoon. VSS. Pt has remained on RA w/ o2 sats >95%. Active bowel sounds in all 4 quads. Pt has c/o abd pain x1 this shift and was medicated per ILIA w/ satisfactory results. Family has remained at bedside this shift. Family has been very inquisitive about POC this shift. This RN answered questions appropriately and family verbalized understanding. MD Eli w/ family at this time discussing POC. No other acute changes or complaints at this time. Will continue to monitor.
[2020-08-06] VITALS (36 sets, daily range): BP systolic 112–195; BP diastolic 52–95; PULSE 83–103; RESP 18–20; TEMP 36.6–37.2; O2SAT 93–100; BMI 20.2
--- NOTE | 2020-08-06 03:51 | PC.NURSE ---
A&OX4. PT SEEMS TO BE QUIET AND WEAK. PT SLEEPING T/O MAJORITY OF SHIFT. PT TOLERATING RA WELL. PT HAD A BLOODY BM WITH BRIGHT RED BLOOD THIS SHIFT. PT HAD C/O STOMACH PAIN X1, RELIEVED WITH ZOFRAN PER MAR. PT FAMILY AT BEDSIDE. NO OTHER C/O THUS FAR. VSS WILL CONTINUE TO MONITOR.
[2020-08-06 06:12] LABS: Basophils % 0.2 % (0.1-2.0); Eosinophils # 0.2 K/mm3 (0.0-0.4); Eosinophils % 1.5 % (0.1-12.0); Lymphocytes # 1.2 K/mm3 (0.7-4.5); Lymphocytes % 10.9 % (10-50); Mean Corpuscular HGB Conc 32.8 g/dL (31.8-35.4); Mean Corpuscular Hemoglobin 29.5 pg (27.0-31.2); Mean Corpuscular Volume 89.9 fl (80-94); Mean Platelet Volume 8.7 fl (7.4-10.4); Monocytes # 0.5 K/mm3 (0.1-1.0); Monocytes % 4.6 % (1.7-9.3); Neutrophils # 9.1 K/mm3 (1.8-7.8); Neutrophils % 82.9 % (37.0-80.0); Platelet Count 141 K/mm3 (142-424); Red Blood Count 2.52 M/mm3 (4.60-6.20); Red Cell Distribution Width 16.4 % (11.5-17.5)
[2020-08-06 06:20] LABS: Chloride 105 mmol/L (98-107); Potassium 4.6 mmoL/L (3.5-5.1); Sodium 131 mmol/L (136-145)
[2020-08-06 06:23] LABS: Alanine Aminotransferase 13 U/L (12-78); Alkaline Phosphatase 41 U/L (38-126); Anion Gap 9.6 mEq/L (5-15); Aspartate Amino Transferase 25 U/L (17-59); Bilirubin,Total 0.5 mg/dl (0.2-1.3); Blood Urea Nitrogen 39 mg/dl (9-20); Calcium 7.2 mg/dl (8.4-10.2); Carbon Dioxide 21 mmol/L (22.0-30.0); Creatinine Clearance Estimated 42 mL/min (50-200); Estimated Glomerular Filt Rate 58 ml/min (>60); GFR (African American) 70 ML/MIN (>60); Globulin 2.1 g/dL (1.3-3.2); Glucose 108 mg/dl (74-100); Hematocrit 22.6 % (42.0-52.0); Hemoglobin 7.5 g/dL (14.1-18.0); Magnesium 1.6 mg/dl (1.6-2.3); Total Protein,Serum 4.1 g/dl (6.3-8.2)
--- NOTE | 2020-08-06 06:25 | PC.NURSE ---
CRITICAL H&H REPORTED 7.5 & 22.6. CALLED TO BOAT OFFICER MD BROWN. NNO AT THIS TIME.
--- NOTE | 2020-08-06 06:57 | P.PN_ITS ---
Subjective Narrative: Patient has had additional very dark bowel movements. Some abdominal soreness . Progress Note: A&P (1) Upper GI bleed Status: Acute (2) Acute blood loss anemia Status: Acute (3) COPD (chronic obstructive pulmonary disease) Problem details: End-stage disease Status: Acute (4) Chronic hypoxemic respiratory failure Status: Chronic Assessment and Plan for All Diagnoses:: Difficult to say if active bleeding ongoing. May need repeat upper endoscopy due to symptomatology and passage of blood. Will check CXR today. Exam Vital signs and Labs for Last 24 Hours: Temp Pulse Resp BP Pulse Ox 98.2 F 103 H 18 118/65 95 08/06/20 04:00 08/06/20 04:00 08/06/20 04:00 08/06/20 04:00 08/06/20 04:00 Laboratory Results - last 24 hr 08/04/20 13:15: Crossmatch (AHG) See Detail 08/05/20 09:09: WBC 10.0, RBC 3.53 L D, Hgb 10.4 L D, Hct 31.5 L, MCV 89.4, MCH 29.5, MCHC 33.0, RDW 16.2, Plt Count 131 L D, MPV 7.6, Neut % (Auto) 75.5, Lymph % (Auto) 16.9, [place] % (Auto) 5.2, Eos % (Auto) 2.2, Baso % (Auto) 0.2, Neut # (Auto) 7.6, Lymph # (Auto) 1.7, [place] # (Auto) 0.5, Eos # (Auto) 0.2, Baso # (Auto) 0.0 08/05/20 09:09: Sodium 134 L, Potassium 3.3 L, Chloride 103, Carbon Dioxide 27, Anion Gap 7.3, BUN 32 H D, Creatinine 1.10, Estimated Creat Clear 45, Estimated GFR 64, Est GFR ( Amer) 77, Glucose 95, Calcium 7.4 L 08/06/20 06:04: WBC 11.0 H, RBC 2.52 L D, Hgb 7.5 L* D, Hct 22.6 L*, MCV 89.9, MCH 29.5, MCHC 32.8, RDW 16.4, Plt Count 141 L, MPV 8.7, Neut % (Auto) 82.9 H, Lymph % (Auto) 10.9, [place] % (Auto) 4.6, Eos % (Auto) 1.5, Baso % (Auto) 0.2, Neut # (Auto) 9.1 H, Lymph # (Auto) 1.2, [place] # (Auto) 0.5, Eos # (Auto) 0.2, Baso # (Auto) 0.0 08/06/20 06:04: Sodium 131 L, Potassium 4.6 D, Chloride 105, Carbon Dioxide 21 L D, Anion Gap 9.6, BUN 39 H, Creatinine 1.20, Estimated Creat Clear 42, Estimated GFR 58 L, Est GFR ( Amer) 70, Glucose 108 H, Calcium 7.2 L, Magnesium 1.6, Total Bilirubin 0.5, AST 25 D, ALT 13, Alkaline Phosphatase 41, Total Protein 4.1 L, Albumin 2.0 L, Globulin 2.1, Albumin/Globulin Ratio 1.0 L I & O for Last 24 hours: Intake & Output 08/03/20 08/04/20 08/05/20 08/06/20 11:59 11:59 11:59 11:59 Intake Total 730 / 730 869 / 869 Output Total 1475 / 1475 200 / 200 Balance -745 / -745 669 / 669 Weight 141 lb 9 oz 141 lb 3 oz - *Routine Abdominal Exam Comments: Mild tenderness.
--- NOTE | 2020-08-06 07:21 | XR_ITS ---
PROCEDURE INFORMATION: Exam: XR Chest Exam date and time: 08/06/2020 7:21 AM Age: 85 years old Clinical indication: Shortness of breath; Prior surgery; Surgery date: 6+ months; Surgery type: Bypass; Additional info: SOB TECHNIQUE: Imaging protocol: XR of the chest. Views: 1 view. COMPARISON: CR XR CHEST PORTABLE 08/04/2020 2:44 PM FINDINGS: Tubes, catheters and devices: Again noted are sternal wires. Lungs: Again noted are fibronodular changes in the lung apices. This finding is unchanged since the previous study. The remaining pulmonary parenchyma is clear. No other pulmonary infiltrate or consolidation. No pulmonary nodules or masses. Pulmonary hyperexpansion, similar to previous. Pleural spaces: Unremarkable. No pleural effusion. No pneumothorax. Heart/Mediastinum: Unremarkable. No cardiomegaly. Bones/joints: Unremarkable. IMPRESSION: 1. Changes in the pulmonary apices are consistent with prior granulomatous exposure versus other post-inflammatory process. 2. No other acute changes in the chest. 3. Chronic obstructive pulmonary disease.
--- NOTE | 2020-08-06 08:07 | HMH.ACPN2 ---
Internal Medicine - PN: Subj *Date: 08/06/20 *Time: 08:07 Interval history: Overall patient did well through the night. General surgery notes appreciated, discussed case with surgeon. Exam Vital signs and Labs for Last 24 Hours: Temp Pulse Resp BP Pulse Ox 98.2 F 103 H 18 118/65 95 08/06/20 04:00 08/06/20 04:00 08/06/20 04:00 08/06/20 04:00 08/06/20 04:00 Laboratory Results - last 24 hr 08/04/20 13:15: Crossmatch (AHG) See Detail 08/05/20 09:09: WBC 10.0, RBC 3.53 L D, Hgb 10.4 L D, Hct 31.5 L, MCV 89.4, MCH 29.5, MCHC 33.0, RDW 16.2, Plt Count 131 L D, MPV 7.6, Neut % (Auto) 75.5, Lymph % (Auto) 16.9, [place] % (Auto) 5.2, Eos % (Auto) 2.2, Baso % (Auto) 0.2, Neut # (Auto) 7.6, Lymph # (Auto) 1.7, [place] # (Auto) 0.5, Eos # (Auto) 0.2, Baso # (Auto) 0.0 08/05/20 09:09: Sodium 134 L, Potassium 3.3 L, Chloride 103, Carbon Dioxide 27, Anion Gap 7.3, BUN 32 H D, Creatinine 1.10, Estimated Creat Clear 45, Estimated GFR 64, Est GFR ( Amer) 77, Glucose 95, Calcium 7.4 L 08/06/20 06:04: WBC 11.0 H, RBC 2.52 L D, Hgb 7.5 L* D, Hct 22.6 L*, MCV 89.9, MCH 29.5, MCHC 32.8, RDW 16.4, Plt Count 141 L, MPV 8.7, Neut % (Auto) 82.9 H, Lymph % (Auto) 10.9, [place] % (Auto) 4.6, Eos % (Auto) 1.5, Baso % (Auto) 0.2, Neut # (Auto) 9.1 H, Lymph # (Auto) 1.2, [place] # (Auto) 0.5, Eos # (Auto) 0.2, Baso # (Auto) 0.0 08/06/20 06:04: Sodium 131 L, Potassium 4.6 D, Chloride 105, Carbon Dioxide 21 L D, Anion Gap 9.6, BUN 39 H, Creatinine 1.20, Estimated Creat Clear 42, Estimated GFR 58 L, Est GFR ( Amer) 70, Glucose 108 H, Calcium 7.2 L, Magnesium 1.6, Total Bilirubin 0.5, AST 25 D, ALT 13, Alkaline Phosphatase 41, Total Protein 4.1 L, Albumin 2.0 L, Globulin 2.1, Albumin/Globulin Ratio 1.0 L I & O for Last 24 hours: Intake & Output 08/03/20 08/04/20 08/05/20 08/06/20 11:59 11:59 11:59 11:59 Intake Total 730 / 730 869 / 869 Output Total 1475 / 1475 200 / 200 Balance -745 / -745 669 / 669 Weight 141 lb 9 oz 141 lb 3 oz Narrative: Doing well on room air. Lungs have symmetric air entry, but diminished. Heart rate regular. Abdomen soft, some tenderness however, no distal edema, patient remains very pale. Neurologically intact. Oropharynx clear. Assessment and Plan (1) Upper GI bleed Status: Acute Category: Medical Code(s): K92.2 - Gastrointestinal hemorrhage, unspecified (2) Acute blood loss anemia Status: Acute Category: Medical Code(s): D62 - Acute posthemorrhagic anemia (3) COPD (chronic obstructive pulmonary disease) Problem details: End-stage disease Status: Acute Qualifiers: COPD type: unspecified COPD Qualified Code(s): J44.9 - Chronic obstructive pulmonary disease, unspecified Category: Medical Code(s): J44.9 - Chronic obstructive pulmonary disease, unspecified (4) Chronic hypoxemic respiratory failure Status: Chronic Category: Medical Code(s): J96.11 - Chronic respiratory failure with hypoxia - Assessment and plan all Dx Assessment and Plan for all problems:: Agree with repeat endoscopy this morning given his blood loss and ongoing symptoms and complex EGD yesterday. Continue oxygen and respiratory therapy as indicated.
--- NOTE | 2020-08-06 11:51 | PC.NURSE ---
Patient leaving the floor with OR nurses at this time for EGD, blood transfusing
--- NOTE | 2020-08-06 13:00 | SUR.OPER ---
4.5ML EPINEPHRINE INJECTED DURING PROCEDURE PER DR ADLER.
--- NOTE | 2020-08-06 13:02 | XR_ITS ---
PROCEDURE: XR CHEST PORTABLE CLINICAL HISTORY: FOREIGN BODY COMPARISON: CT CT ANGIO CHEST from 07/20/2020 CR XR CHEST AP from 07/26/2020 CR XR CHEST PORTABLE from 08/04/2020 CR XR CHEST PORTABLE from 08/06/2020 FINDINGS: Foreign body evaluation. There has been a prior median sternotomy with CABG with multiple clips present in the left hilum and along the left heart border and in the upper abdomen. A small tubular metallic density is present overlying the T7 vertebral body between the heads of the clavicles. This measures 1 point 6 cm in length and was not present on 08/06/2020 preoperative exam. Old granulomatous disease with biapical pleural thickening left greater than right once again noted. IMPRESSION: New metallic density in the mid upper gest centrally consistent with foreign body. Cannot determine if this is in the esophagus or the trachea based on this AP view. Dictated by: Michoacano De León MD 08/06/2020 13:20 Michoacano De León MD in OV 08/06/2020 13:20
--- NOTE | 2020-08-06 13:15 | SW/DCPLANNER ---
PATIENT REMAINS IN THE [facility] WITH A GI BLEED...HE RESIDES AT HIS HOME WITH HIS WHOM HAS BEEN AT BEDSIDE MOST OF THE TIME... HE A HOSPICE PATIENT FOR END STAGE COPD... PATIENT REQUIRES HOME 0XYGEN AROUND THE CLOCK.. I HAVE SPOKEN WITH HIS HOSPICE NURSE DAILY AND SHE IS AWARE OF HIM NOT BEING ABLE TO DISCHARGE YET...
--- NOTE | 2020-08-06 13:34 | SUR.OPER ---
1320-CONSENT RECEIVED FROM SPOUSE FOR BRONCHOSCOPY. 1324 DR. CHICAS ARRIVED TO SCOPE ROOM TO ASSIST WITH BRONCHOSCOPY FOR RETRIEVAL OF CLIP. 1329 BRONCHOSCOPY COMPLETE. 1335-RESPIRATORY AT BEDSIDE GIVING LIDOCAINE NEB PER MD ORDERS
--- NOTE | 2020-08-06 13:37 | HMH.SCOPE ---
- Procedure: Date: 08/06/20 Patient Date of :: 1935 Procedure Performed:: Esophagogastroduodenoscopy with injection epinephrine and Hemoclip placement on duodenal ulcer Indications:: Patient is an 85-year-old male under hospice care for end-stage COPD. He recently has had evidence of GI bleeding requiring transfusion. He did undergo upper endoscopy yesterday and was found to have significant amount of blood in the duodenum with what appeared to be duodenal ulceration in the second portion of the duodenum with visible vessel. Due to the anatomy and technical difficulty of the procedure despite approximately 75 minutes procedure time intervention was unable to be performed. Patient was doing well post procedure however he has had some additional bloody bowel movements and has dropped his hemoglobin hematocrit. Plan was made for follow-up repeat endoscopy. Performing Provider:: Regino Jarvis MD Referring Provider:: Ziggy Plascencia MD Sedation:: MAC sedation Procedure:: Patient was taken to endoscopy procedure room. He was positioned in semilateral position. Endoscope was advanced through the oropharynx advanced through the esophagus. Esophagus was somewhat tortuous. Stomach was cannulated and insufflated. There was no evidence of any blood at this time. Pylorus was traversed. Duodenal bulb and duodenal sweep had no evidence of any recent bleeding or clot. There was no evidence of any bleeding. The post bulbar ulcer was able to be better visualized today. There is no evidence of any visible vessel at this time but there was red spot present in exudative base within the ulcer. Epinephrine was injected submucosally around the ulcer with good blanching. Total of 4.5 mL of epinephrine was injected submucosally. A couple of hemoclips were then applied. There was good hemostasis. One of the several hemoclips were noted to be free-floating and loose. This was grasped with the endoscope and withdrawn. However, upon reaching the oropharynx the Hemoclip was lost from the grasping forcep. Endoscope was used to inspect the oropharynx and readvanced into the esophagus. Hemoclip was unable to be identified. Endoscope was withdrawn. Intraoperative chest x-ray was performed which revealed possible Hemoclip in the main airway. At this time pulmonary was consulted for intraprocedure consultation and bronchoscopy was performed with retrieval of Hemoclip from the trachea. Please see additional dictation for complete details. Patient tolerated the procedure well with no immediate complications. Findings:: Duodenal ulcer and second portion of duodenum with evidence of recent bleeding characterized by red spot but no active bleeding. Intervention including injection of epinephrine submucosally and Hemoclip deployment to prevent recurrent bleeding undertaken Recommendations:: Continue to monitor hemoglobin hematocrit and transfuse if necessary. Continue medical management. Complications:: None immediately apparent Estimated blood obtained (mL): 2
--- NOTE | 2020-08-06 14:16 | HMH.BRONCH ---
- Procedure: Date: 08/06/20 Patient Date of :: 1935 Procedure Performed:: Bronchoscopy with airway examination and foreign body retrieval Indications:: Foreign body aspiration Performing Provider:: Madhavi Alves MD Referring Provider:: Dr. Jarvis Sedation:: As per anesthesia Procedure:: Bronchoscopy airway examination and foreign body retrieval: Pulmonary was called as concern for esophageal clip aspiration that was found on the chest x-ray and appeared to be in the main bronchi. Patient already receiving propofol for sedation as per anesthesia. His lower airway was numbed with Hurricaine spray and cleaned therapeutic bronchoscopy was advanced through the mouth into the vocal cords into the main bronchi the esophageal clip that was seen on the x-ray the patient aspirated was found in the main bronchi at the level of eva. A biopsy forceps was advanced and the clip was pulled back intact along with the biopsy forceps. Confirmed with Dr. Jarvis that the clip was pulled in its entirety with no remnants left. Findings:: Please see the procedure note Recommendations:: Please follow instructions from the primary care. No further instructions from pulmonary. Please call with any further questions or concerns. Complications:: None Estimated blood obtained (mL): 0
--- NOTE | 2020-08-06 15:15 | P.PN_ITS ---
[facility] Anesthesia Checklist - Patient Identification Patient Identification: Arm Band - Structural Data Admitted From: Inpatient Planned Operative Procedure/s: EGD Consent for Planned Operative Procedure(s) Verified: Yes Verified Documents: Surgical Consent, History and Physical - NPO Status Verified Time NPO: 00:00 - Airway Assessment C-Spine Mobility Assessed: Yes TMJ Mobility Assessed: Yes Dentition: Edentulous - Neurological Assessment Level of Consciousness: Awake, Alert - Anesthesia Plan Anesthesia Risk discussed: Yes Anesthesia Plan: Verified ASA Class: IV Anesthesia Type: MAC [facility] History Medical History: Reports:: Atrial Fibrillation, Chronic Obstructive Pulmonary Disease (COPD), Hyperlipidemia, Hypertension, Myocardial Infarction Denies:: Cancer, Diabetes Mellitus Type 1, Diabetes Mellitus Type 2, MRSA, Seizures *Have you ever received a pneumonia vaccine?: No *Have you received a flu vaccine this season?: No Anesthesia experience/problems:: None Laterality Cases: Left: Arthroscopy Hip Other Surgeries: Yes: CABG, Cardiac Catheterization, Cardiac Surgery, Open Heart Surgery Amputation: No - *Social History Smoking Status: Former smoker Tobacco Type: cigarettes # Packs/Day (cigarettes): 1 Smoking End Date: 07/10/20 Alcohol Intake: never Substance Use Type: denies use *Occupational Status:: retired Housing: house Household Members: spouse *Travel in the last 8 weeks: None Family Hx:: Diabetes
[2020-08-06 15:17] LABS: Hematocrit 31.9 % (42.0-52.0)
[2020-08-06 15:18] LABS: Hemoglobin 10.7 g/dL (14.1-18.0)
[2020-08-07] VITALS (7 sets, daily range): BP systolic 137–178; BP diastolic 53–94; PULSE 85–95; RESP 16–20; TEMP 36.8–37.8; O2SAT 94–96; BMI 20.5
--- NOTE | 2020-08-07 01:18 | PC.NURSE ---
He has been resting in bed. Denies pain. His is at the bedside. 2+ non-pitting edema present to E.
--- NOTE | 2020-08-07 06:38 | HMH.GSPN ---
Subjective Narrative: Feels worn out this morning. Progress Note: A&P (1) Upper GI bleed Status: Acute (2) Acute blood loss anemia Status: Acute (3) COPD (chronic obstructive pulmonary disease) Problem details: End-stage disease Status: Acute (4) Chronic hypoxemic respiratory failure Status: Chronic (5) Bleeding duodenal ulcer Status: Acute Assessment and plan: Overall, doing well status post repeat esophagogastroduodenoscopy with epinephrine injection/clip placement. Follow-up serial hemoglobin Continue current medical management Exam Vital signs and Labs for Last 24 Hours: Temp Pulse Resp BP Pulse Ox 98.6 F 92 H 20 138/53 L 94 L 08/07/20 04:00 08/07/20 04:00 08/07/20 04:00 08/07/20 04:00 08/07/20 04:00 Laboratory Results - last 24 hr 08/04/20 13:15: Blood Type O Negative, Antibody Screen Negative, Crossmatch (AHG) See Detail 08/06/20 15:02: Hgb 10.7 L D, Hct 31.9 L I & O for Last 24 hours: Intake & Output 08/04/20 08/05/20 08/06/20 08/07/20 11:59 11:59 11:59 11:59 Intake Total 730 / 730 1129 / 1129 1621 / 1621 Output Total 1475 / 1475 200 / 200 400 / 400 Balance -745 / -745 929 / 929 1221 / 1221 Weight 141 lb 9 oz 141 lb 3 oz 143 lb 9 oz - Constitutional no acute distress - *Routine Respiratory Exam Absent: respiratory distress - *Routine Cardiovascular Exam Comments: Regular rate
--- NOTE | 2020-08-07 08:00 | CA_ITS ---
APPROVED REPORT EXAM: Comprehensive 2D, Doppler, and color-flow Echocardiogram [employer]: Nancie Heck CRT Ht: 5 ft 10 in Wt: 143lbs BSA: 1.81 BP: 124/60 mmHg Indications: COPD, Atrial Fibrillation (chronic), Hyperlipidemia, Hypertension/HDD, old [place], CABG, stents 2D Dimensions LVOT 2.03 cm (M/F) 1.5-2.5 LA Volume 35.40 mL LA Volume Index 19.60 mL/m2 (M/F) 16-34 M-Mode Dimensions RVDd 2.50 cm (0.9-2.6) LA Diam 2.76 cm (1.9-4.0) LVDd 4.91 cm (3.5-5.7) Ao Diam 4.25 cm (2.0-3.7) LVDs 2.85 cm (3.5-5.7) IVSd 1.47 cm (0.6-1.1) PWd 0.59 cm (0.6-1.1) EF (Teich) 72.80% FS 42.00% EDV (Teich) 113.40 mL ESV (Teich) 30.90 mL LV Diastology E Decel Time 130.00 (160-240 msec) E/A Ratio 0.70 MED E' 10.00 (< 7 cm/sec) MED A' 15.20 cm/s E'/MED E' Ratio 6.62 (>14) LAT E' 9.20 (<10 cm/sec) LAT A' 14.90 cm/s E/LAT E' Ratio 7.20 (>14) Aortic Valve AO Peak GR. 4.80 mmHg Mitral Valve MV A Velocity 95.00 (40-130 cm/s) E/A Ratio 0.70 MV Decel. Time 130.00 (160-240 ms) Pulmonary Valve PV Peak Velocity 159.00 (50-150 cm/s) Tricuspid Valve TR P. Velocity 418.00 cm/s RAP Estimate 10.00 mmHg RVSP 79.90 mmHg Left Ventricle Technically difficult study because of the patient factors and poor acoustic windows. Left atrium is mildly enlarged, left ventricle is normal size, mild concentric left ventricular hypertrophy, visually estimated ejection fraction 50% with no regional wall motion abnormality, endocardial surfaces are poorly visualized, grade 1 diastolic dysfunction seen without tissue Doppler evidence of raise left atrial pressure. Right Ventricle Right atrium and right ventricle are normal size and contractility. Aortic Valve Aortic valve is minimally thickened and fibrosed, there is no aortic stenosis or aortic insufficiency. Mitral Valve Mitral valve leaflets are minimally thickened, there is trace mitral regurgitation. Tricuspid Valve Tricuspid grossly normal, there is trace tricuspid regurgitation, tricuspid regurgitation jet velocity is inadequate for calculation of the right ventricular systolic pressure. Pulmonic Valve Pulmonic valve is poorly visualized. Great Vessels Aortic root is normal size. Pericardium No significant pericardial effusion noted. Conclusion 1. Mildly enlarged left atrium, normal left ventricular size, mild concentric left ventricular hypertrophy, visually estimated ejection fraction 50% with no regional wall motion abnormality, grade 1 diastolic dysfunction seen without tissue Doppler evidence of raise left atrial pressure. 2. Trace mitral and tricuspid regurgitation. 3. No significant pericardial effusion noted. Electronically signed by : Keagan Pineda, 08/07/2020 15:19:19
[2020-08-07 08:03] LABS: Basophils % 0.3 % (0.1-2.0); Eosinophils # 0.2 K/mm3 (0.0-0.4); Eosinophils % 2.4 % (0.1-12.0); Hematocrit 29.3 % (42.0-52.0); Lymphocytes # 1.3 K/mm3 (0.7-4.5); Lymphocytes % 13.3 % (10-50); Mean Corpuscular HGB Conc 32.2 g/dL (31.8-35.4); Mean Platelet Volume 9.8 fl (7.4-10.4); Monocytes # 0.6 K/mm3 (0.1-1.0); Monocytes % 6.4 % (1.7-9.3); Neutrophils # 7.3 K/mm3 (1.8-7.8); Neutrophils % 77.6 % (37.0-80.0); Platelet Count 87 K/mm3 (142-424); Red Blood Count 3.37 M/mm3 (4.60-6.20); Red Cell Distribution Width 16.8 % (11.5-17.5); White Blood Count 9.4 K/mm3 (4.8-10.8)
--- NOTE | 2020-08-07 08:33 | HMH.ACPN2 ---
Internal Medicine - PN: Subj *Date: 08/07/20 *Time: 08:33 Interval history: Patient had no further episodes of hematemesis or blood in bowels through the night last night, continues to feel poorly and his throat hurts from his endoscopy procedures. Exam Vital signs and Labs for Last 24 Hours: Temp Pulse Resp BP Pulse Ox 98.2 F 88 17 142/56 H 95 08/07/20 08:00 08/07/20 08:00 08/07/20 08:00 08/07/20 08:00 08/07/20 08:00 Laboratory Results - last 24 hr 08/04/20 13:15: Blood Type O Negative, Antibody Screen Negative, Crossmatch (AHG) See Detail 08/06/20 15:02: Hgb 10.7 L D, Hct 31.9 L 08/07/20 07:24: WBC 9.4, RBC 3.37 L D, Hct 29.3 L, MCV 87.0, MCH 28.0, MCHC 32.2, RDW 16.8, Plt Count 87 L D, MPV 9.8, Neut % (Auto) 77.6, Lymph % (Auto) 13.3, [place] % (Auto) 6.4, Eos % (Auto) 2.4, Baso % (Auto) 0.3, Neut # (Auto) 7.3, Lymph # (Auto) 1.3, [place] # (Auto) 0.6, Eos # (Auto) 0.2, Baso # (Auto) 0.0 I & O for Last 24 hours: Intake & Output 08/04/20 08/05/20 08/06/20 08/07/20 11:59 11:59 11:59 11:59 Intake Total 730 / 730 1129 / 1129 1861 / 1861 Output Total 1475 / 1475 200 / 200 601 / 601 Balance -745 / -745 929 / 929 1260 / 1260 Weight 141 lb 9 oz 141 lb 3 oz 143 lb 9 oz Narrative: Patient has much better color in his cheeks and sclera. Lungs have rhonchorous sounds but symmetric air entry. Heart rate regular. Abdomen is soft, no tenderness. No distal edema except in his hands distal to his IV sites. Neurologically intact. Assessment and Plan (1) Upper GI bleed Status: Acute Category: Medical Code(s): K92.2 - Gastrointestinal hemorrhage, unspecified (2) Acute blood loss anemia Status: Acute Category: Medical Code(s): D62 - Acute posthemorrhagic anemia (3) COPD (chronic obstructive pulmonary disease) Problem details: End-stage disease Status: Acute Qualifiers: COPD type: unspecified COPD Qualified Code(s): J44.9 - Chronic obstructive pulmonary disease, unspecified Category: Medical Code(s): J44.9 - Chronic obstructive pulmonary disease, unspecified (4) Chronic hypoxemic respiratory failure Status: Chronic Category: Medical Code(s): J96.11 - Chronic respiratory failure with hypoxia - Assessment and plan all Dx Assessment and Plan for all problems:: Hematocrit this morning is relatively stable. Continue to observe, cardiology consultation at family request given his overall significant issues. Still plan for discharge home with hospice when he is ready, in the next 3 to 4 days once we are assured that his bleeding has stopped. Children are very concerned about patient's 's dementia and apparently she has been giving him multiple medications from a variety of sources last time he went home. We will collaborate with hospice to train his medication list and make sure appropriate medications are in home when he does go home.
[2020-08-07 08:42] LABS: Hemoglobin 9.3 g/dL (14.1-18.0)
--- NOTE | 2020-08-07 10:12 | HMH.CNCARD ---
History of Present Illness Consult date: 08/07/20 Requesting physician: Ziggy Plascencia Chief complaint: bleeding ulcer History of present illness: This is an 85-year-old white gentleman with end-stage COPD who is in hospice care that was admitted to the hospital for a GI bleed. The patient was just here a week and a half ago for a GI bleed as well. The patient had a repeat EGD on this admission and had a duodenal ulcer and second portion of the duodenum with evidence of recent bleeding but no active bleeding at the time of his EGD. The patient had injection of epinephrine submucosally and a Hemoclip deployed to prevent recurrent bleeding. The patient tolerated this procedure well. Following his EGD foreign body was noted on chest x-ray. The patient underwent bronchoscopy and was found to have an esophageal clip in the main bronchi at the level of the cornea. The clip was pulled back intact with biopsy forceps and no remnants were left. The patient also tolerated this procedure well. His family wanted a cardiology consult due to his extensive history of coronary artery disease. The patient was previously being seen by cardiology in [facility] but now wants to switch the cardiology care here which is closer to home. He denies any chest pain or pressure. He denies any shortness of breath or edema. He denies any fever, chills, nausea, vomiting, diarrhea, PND or orthopnea. The patient wanted to establish care and states that he has been feeling very well except for having the bleeding ulcer. He does have a history of coronary artery disease with coronary artery bypass grafting and stents placed. He denies any arrhythmias or aneurysms. He does have a history of hypertension and hyperlipidemia. [facility] History I have reviewed the patient's past medical history: Yes Medical History: Reports:: Atherosclerotic Heart Disease, Atrial Fibrillation, Chronic Obstructive Pulmonary Disease (COPD), Coronary Artery Disease, Hyperlipidemia, Hypertension, Myocardial Infarction Denies:: Cancer, Diabetes Mellitus Type 1, Diabetes Mellitus Type 2, MRSA, Seizures *Have you ever received a pneumonia vaccine?: No *Have you received a flu vaccine this season?: No Anesthesia experience/problems:: None Laterality Cases: Left: Arthroscopy Hip Other Surgeries: Yes: CABG, Cardiac Catheterization, Cardiac Surgery, Open Heart Surgery Amputation: No - *Social History Smoking Status: Former smoker Tobacco Type: cigarettes # Packs/Day (cigarettes): 1 Smoking End Date: 07/10/20 Alcohol Intake: never Substance Use Type: denies use *Occupational Status:: retired Housing: house Household Members: spouse *Travel in the last 8 weeks: None Family Hx:: Diabetes Meds Home Medications Medication Instructions Recorded Confirmed Type Atorvastatin Calcium [Lipitor 40mg 40 mg PO HS 10/30/18 08/04/20 History Tab] Hydrocodone/Acetaminophen 1 tab PO Q6HP PRN 10/30/18 08/04/20 History [Hydrocodone-Acetamin 7.5-325] Aspirin [Aspirin 81mg EC Tab] 81 mg PO DAILY 07/17/20 08/04/20 History carvediloL [Carvedilol 6.25mg Tab] 6.25 mg PO BID 07/17/20 08/04/20 History lisinopriL [Lisinopril] 10 mg PO DAILY 07/17/20 08/04/20 History Acetaminophen [Acetaminophen 325mg 650 mg PO Q4HP PRN tab 07/22/20 08/04/20 Rx tab] Ipratropium/Albuterol Sulfate 2 puffs IH QID PRN 30 Days #1 inh 07/22/20 08/04/20 Rx [Combivent Respimat Inh] Morphine Sulfate [Roxanol 20mg/mL 10 mg PO Q6HP PRN 30 Days #100 ml 07/22/20 08/04/20 Rx 1mL oral solution UDC] Citalopram Hydrobromide 20 mg PO DAILY 07/26/20 08/04/20 History [Citalopram 20mg Tablet] Pantoprazole Sodium [Protonix 40mg 40 mg PO BID #60 tab 07/28/20 08/04/20 Rx tablet] Sucralfate [Sucralfate 1gm 1 gm PO ACHS 08/04/20 08/04/20 History Tab] Allergies Allergy/AdvReac Type Severity Reaction Status Date / Time Penicillins [PENICILLINS] Allergy Unknown Verified 07/26/20 11:18 Sulfa (Sulfona
[2020-08-07 11:04] LABS: Chloride 103 mmol/L (98-107); Potassium 4.1 mmoL/L (3.5-5.1); Sodium 130 mmol/L (136-145)
[2020-08-07 11:07] LABS: Anion Gap 8.1 mEq/L (5-15); Blood Urea Nitrogen 31 mg/dl (9-20); Carbon Dioxide 23 mmol/L (22.0-30.0); Creatinine Clearance Estimated 42 mL/min (50-200); Estimated Glomerular Filt Rate 58 ml/min (>60); GFR (African American) 70 ML/MIN (>60)
[2020-08-07 11:08] LABS: Calcium 7.2 mg/dl (8.4-10.2); Glucose 91 mg/dl (74-100)
[2020-08-07 14:21] LABS: Hematocrit 24.8 % (42.0-52.0); Hemoglobin 8.4 g/dL (14.1-18.0)
--- NOTE | 2020-08-07 15:31 | PC.NURSE ---
Pt is alert and oriented x3. Lungs are clear, bowel sounds active x4. He remains on RA with O2 sats measuring > 92%. He denies pain everywhere except for a sore throat. Throat spray administered and he verbalizes relief on reassessment. He has utilized a urinal at the bedside. No changes noted since morning assessment. Family is at bedside and are very supportive. Will continue to monitor.
[2020-08-08 05:00] VITALS: BMI 20.6
--- NOTE | 2020-08-08 06:39 | PC.NURSE ---
shift summary pts lung sounds are clear with sats maintained 94% or above on room air, with a rate ranging from 16-20. pt is alert and oriented X4. pt had one BM that was black and loose. pt denies any pain, nausea, or vomiting.
[2020-08-08 07:33] LABS: Basophils % 0.2 % (0.1-2.0); Chloride 103 mmol/L (98-107); Eosinophils # 0.2 K/mm3 (0.0-0.4); Eosinophils % 2.5 % (0.1-12.0); Hematocrit 26.2 % (42.0-52.0); Hemoglobin 8.7 g/dL (14.1-18.0); Lymphocytes # 0.9 K/mm3 (0.7-4.5); Lymphocytes % 12.2 % (10-50); Mean Corpuscular HGB Conc 33.4 g/dL (31.8-35.4); Mean Corpuscular Hemoglobin 28.4 pg (27.0-31.2); Mean Corpuscular Volume 85.2 fl (80-94); Mean Platelet Volume 8.8 fl (7.4-10.4); Monocytes # 0.5 K/mm3 (0.1-1.0); Monocytes % 7.3 % (1.7-9.3); Neutrophils # 5.7 K/mm3 (1.8-7.8); Neutrophils % 77.8 % (37.0-80.0); Platelet Count 156 K/mm3 (142-424); Red Blood Count 3.07 M/mm3 (4.60-6.20); Red Cell Distribution Width 16.5 % (11.5-17.5); Sodium 130 mmol/L (136-145); White Blood Count 7.3 K/mm3 (4.8-10.8)
[2020-08-08 07:34] LABS: Potassium 3.5 mmoL/L (3.5-5.1)
[2020-08-08 07:36] LABS: Alanine Aminotransferase 8 U/L (12-78); Alkaline Phosphatase 45 U/L (38-126); Anion Gap 7.5 mEq/L (5-15); Aspartate Amino Transferase 28 U/L (17-59); Bilirubin,Total 0.5 mg/dl (0.2-1.3); Blood Urea Nitrogen 21 mg/dl (9-20); Carbon Dioxide 23 mmol/L (22.0-30.0); Creatinine Clearance Estimated 46 mL/min (50-200); Estimated Glomerular Filt Rate 64 ml/min (>60); GFR (African American) 77 ML/MIN (>60)
[2020-08-08 07:37] LABS: Albumin/Globulin Ratio 0.9 (1.1-1.8); Calcium 7.2 mg/dl (8.4-10.2); Globulin 2.2 g/dL (1.3-3.2); Glucose 102 mg/dl (74-100); Magnesium 1.5 mg/dl (1.6-2.3); Total Protein,Serum 4.2 g/dl (6.3-8.2)
--- NOTE | 2020-08-08 07:54 | HMH.GSPN ---
Subjective Patient reports: feels better Narrative: Some dark stool. Progress Note: A&P (1) Upper GI bleed Status: Acute (2) Acute blood loss anemia Status: Acute (3) COPD (chronic obstructive pulmonary disease) Problem details: End-stage disease Status: Acute (4) Chronic hypoxemic respiratory failure Status: Chronic (5) Bleeding duodenal ulcer Status: Acute Assessment and plan: Hgb stable. Advance diet. Possible discharge home soon. (6) CAD (coronary artery disease) Status: Chronic (7) HTN (hypertension) Status: Chronic (8) HLD (hyperlipidemia) Status: Chronic (9) Hx of CABG Status: Chronic (10) Stented coronary artery Status: Chronic Exam Vital signs and Labs for Last 24 Hours: Temp Pulse Resp BP Pulse Ox 100.1 F H 91 H 18 163/69 H 94 L 08/07/20 23:58 08/07/20 23:58 08/07/20 23:58 08/07/20 23:58 08/07/20 23:58 Laboratory Results - last 24 hr 08/07/20 07:24: WBC 9.4, RBC 3.37 L D, Hgb 9.3 L D, Hct 29.3 L, MCV 87.0, MCH 28.0, MCHC 32.2, RDW 16.8, Plt Count 87 L D, MPV 9.8, Neut % (Auto) 77.6, Lymph % (Auto) 13.3, [place] % (Auto) 6.4, Eos % (Auto) 2.4, Baso % (Auto) 0.3, Neut # (Auto) 7.3, Lymph # (Auto) 1.3, [place] # (Auto) 0.6, Eos # (Auto) 0.2, Baso # (Auto) 0.0 08/07/20 07:24: Sodium 130 L, Potassium 4.1, Chloride 103, Carbon Dioxide 23, Anion Gap 8.1, BUN 31 H, Creatinine 1.20, Estimated Creat Clear 42, Estimated GFR 58 L, Est GFR ( Amer) 70, Glucose 91, Calcium 7.2 L 08/07/20 14:05: Hgb 8.4 L, Hct 24.8 L 08/08/20 07:16: WBC 7.3, RBC 3.07 L, Hgb 8.7 L, Hct 26.2 L, MCV 85.2, MCH 28.4, MCHC 33.4, RDW 16.5, Plt Count 156 D, MPV 8.8, Neut % (Auto) 77.8, Lymph % (Auto) 12.2, [place] % (Auto) 7.3, Eos % (Auto) 2.5, Baso % (Auto) 0.2, Neut # (Auto) 5.7, Lymph # (Auto) 0.9, [place] # (Auto) 0.5, Eos # (Auto) 0.2, Baso # (Auto) 0.0 08/08/20 07:16: Sodium 130 L, Potassium 3.5, Chloride 103, Carbon Dioxide 23, Anion Gap 7.5, BUN 21 H D, Creatinine 1.10, Estimated Creat Clear 46, Estimated GFR 64, Est GFR ( Amer) 77, Glucose 102 H, Calcium 7.2 L, Magnesium 1.5 L, Total Bilirubin 0.5, AST 28, ALT 8 L D, Alkaline Phosphatase 45, Total Protein 4.2 L, Albumin 2.0 L, Globulin 2.2, Albumin/Globulin Ratio 0.9 L I & O for Last 24 hours: Intake & Output 08/05/20 08/06/20 08/07/20 08/08/20 11:59 11:59 11:59 11:59 Intake Total 730 / 730 1129 / 1129 2168 / 2168 600 / 600 Output Total 1475 / 1475 200 / 200 601 / 601 Balance -745 / -745 929 / 929 1567 / 1567 600 / 600 Weight 141 lb 9 oz 141 lb 3 oz 143 lb 9 oz 144 lb 3 oz - *Routine Abdominal Exam Present: soft
[2020-08-08 08:00] VITALS: BP 139/59; PULSE 85; RESP 16; TEMP 36.8; O2SAT 93
--- NOTE | 2020-08-08 08:52 | HMH.ACPN2 ---
Internal Medicine - PN: Subj *Date: 08/08/20 *Time: 08:52 Interval history: Patient has done well overnight. Stools transitioning to brown. No vomiting or nausea. Still has some abdominal pain but better. Feels weak but able to ambulate independently to the bathroom. Family at bedside, updated of plan. Extensive discussion about criteria for getting patient discharged home. Family has significant concern about rebleed or patient being strong enough to go home. Discussed that her known bleeding problem has definitively been addressed, at home he likely would be more active and get stronger faster, and would like to see advancement of diet is really the only criteria before going home. Family states understanding. Will readdress in the morning. Exam Vital signs and Labs for Last 24 Hours: Temp Pulse Resp BP Pulse Ox 98.2 F 85 16 139/59 L 93 L 08/08/20 08:00 08/08/20 08:00 08/08/20 08:00 08/08/20 08:00 08/08/20 08:00 Laboratory Results - last 24 hr 08/07/20 07:24: Sodium 130 L, Potassium 4.1, Chloride 103, Carbon Dioxide 23, Anion Gap 8.1, BUN 31 H, Creatinine 1.20, Estimated Creat Clear 42, Estimated GFR 58 L, Est GFR ( Amer) 70, Glucose 91, Calcium 7.2 L 08/07/20 14:05: Hgb 8.4 L, Hct 24.8 L 08/08/20 07:16: WBC 7.3, RBC 3.07 L, Hgb 8.7 L, Hct 26.2 L, MCV 85.2, MCH 28.4, MCHC 33.4, RDW 16.5, Plt Count 156 D, MPV 8.8, Neut % (Auto) 77.8, Lymph % (Auto) 12.2, [place] % (Auto) 7.3, Eos % (Auto) 2.5, Baso % (Auto) 0.2, Neut # (Auto) 5.7, Lymph # (Auto) 0.9, [place] # (Auto) 0.5, Eos # (Auto) 0.2, Baso # (Auto) 0.0 08/08/20 07:16: Sodium 130 L, Potassium 3.5, Chloride 103, Carbon Dioxide 23, Anion Gap 7.5, BUN 21 H D, Creatinine 1.10, Estimated Creat Clear 46, Estimated GFR 64, Est GFR ( Amer) 77, Glucose 102 H, Calcium 7.2 L, Magnesium 1.5 L, Total Bilirubin 0.5, AST 28, ALT 8 L D, Alkaline Phosphatase 45, Total Protein 4.2 L, Albumin 2.0 L, Globulin 2.2, Albumin/Globulin Ratio 0.9 L I & O for Last 24 hours: Intake & Output 08/05/20 08/06/20 08/07/20 08/08/20 23:59 23:59 23:59 23:59 Intake Total 360 / 360 2071 / 2091 1825 / 1825 120 / 120 Output Total 1475 / 1475 200 / 200 601 / 601 Balance -1115 / -1115 1872 / 1892 1224 / 1224 120 / 120 Weight 64.212 kg 64 kg 65.119 kg 65.402 kg - Constitutional no acute distress, average body habitus, chronically ill appearing - *Routine HEENT Exam Head: Present: normocephalic Eye: Present: EOMI, PERRL ENT: Present: mucous membranes moist - *Routine Neck Exam Present: supple. Absent: lymphadenopathy - *Routine Respiratory Exam Present: CTA bilaterally, rhonchi (Thick clear with cough). Absent: wheezes, crackles - *Routine Cardiovascular Exam Present: RRR - *Routine Abdominal Exam Present: soft, normoactive bowel sounds, tenderness (Minimal improved tenderness) - *Routine Extremities Exam Absent: cyanosis, clubbing, edema Comments: Sarcopenia - *Routine Skin Exam Present: pallor, warm. Absent: rash - *Routine Neurological Exam Present: alert, oriented X3 Assessment and Plan (1) Upper GI bleed Status: Acute Category: Medical Code(s): K92.2 - Gastrointestinal hemorrhage, unspecified (2) Acute blood loss anemia Status: Acute Category: Medical Code(s): D62 - Acute posthemorrhagic anemia (3) COPD (chronic obstructive pulmonary disease) Problem details: End-stage disease Status: Acute Qualifiers: COPD type: unspecified COPD Qualified Code(s): J44.9 - Chronic obstructive pulmonary disease, unspecified Category: Medical Code(s): J44.9 - Chronic obstructive pulmonary disease, unspecified (4) Chronic hypoxemic respiratory failure Status: Chronic Category: Medical Code(s): J96.11 - Chronic respiratory failure with hypoxia (5) Bleeding duodenal ulcer Status: Acute Category: Medical Code(s): K26.4 - Chronic or unspecified duodenal ulcer with hemorrhage (6) CAD (coronary artery disease) Status: C
--- NOTE | 2020-08-08 13:30 | DIET.NUTRFU ---
Diet advanced today, pt stated he tolerated lunch okay and was able to eat most of it. He did have diarrhea afterwards that was tarry/black in color. Pt and family have been provided diet education for duodenal ulcer and hiatal hernia as well as COPD, CKD, and maintaining weight/nutritional status with end stage COPD. They have been encouraged to reach out post dc with any nutritional concerns/questions.
[2020-08-08 15:22] VITALS: BP 134/66; PULSE 81; RESP 18; TEMP 36.8; O2SAT 92
--- NOTE | 2020-08-08 18:11 | PC.NURSE ---
Pt is alert and oriented x3. He is able to verbalize needs. He has rested in bed all shift with no complaints or needs. He has tolerated his diet. No changes from morning assessment. is currently at bedside. Will continue to monitor.
[2020-08-08 20:00] VITALS: BP 172/74; PULSE 72; RESP 19; TEMP 36.7; O2SAT 97
--- NOTE | 2020-08-09 02:22 | PC.NURSE ---
Pt had a very large loose stool, full bed change required. Patient in no acute distress, will continue to monitor.
[2020-08-09 04:00] VITALS: BP 122/59; PULSE 83; RESP 16; TEMP 36.8; O2SAT 94
[2020-08-09 05:00] VITALS: BMI 20.8
--- NOTE | 2020-08-09 06:28 | PC.NURSE ---
Patient oriented X 4. Patient slept for approximately 4 hours during this shift. Patient woke up about 0300 incontinent of bladder and bowel and required a full bed change. Patient did not have any pain or respiratory distress during the night. Will continue to monitor for any acute changes.
[2020-08-09 08:00] VITALS: BP 124/63; PULSE 92; RESP 16; TEMP 36.6; O2SAT 97
--- NOTE | 2020-08-09 09:30 | HMH.DCSUM ---
General - General Admission date:: 08/04/20 Discharge date: 08/09/20 HPI HPI: 85-year-old white male with end-stage COPD who has recently become attached to our service after an admission for COPD exacerbation, readmitted a week and a half ago with GI bleed, found to have upper GI bleeding from gastritis possibly from prednisone use, no active bleeding was noted on endoscopy at that point and patient stabilized and was discharged home under hospice care as previously arranged for his COPD. He has been at home with good follow-up with hospice but yesterday began to have bloating in his abdomen, swelling, abdominal pain, hospice called me, we continued Roxanol and Phenergan and made plans for evaluation today but his noticed multiple episodes of maroon-colored foul-smelling stools over the last 12 to 24 hours and he is becoming extremely weak and dizzy and they presented to the emergency department via EMS. Hemoglobin less than 5 g, evidence of prior blood loss noted. CT scan showed no evidence of ischemic bowel but some evidence of worsening pulmonary effusions. Patient admitted for transfusion and evaluation of GI bleeding Hospital Course Hospital Course: 85-year-old male admitted for concern for GI bleed. Found to be profoundly anemic. Taken for initial scope during this hospitalization with visualization of second ulcer (not visualized on previous scope due to obscure location and difficult anatomy). Unable to intervene on for scope but no active bleeding visualized at that time. Patient was monitored and found to have recurrent bleed within 24 hours. Taken for second endoscopy, this time anatomy more cooperative and ulcer more easily visualized. Able to intervene with injection of epinephrine and clipping (see procedure note for full details). Patient tolerated the procedure well. Has been monitored for over 48 hours with no further bleeding and stable hemoglobin. Tolerating advancement in diet. Only complaint this morning is increased stool output, loose brown stools. No black or bloody stools. Per medication review, noted that he has received docusate the past 2 days. This is likely the cause of his increased stool output. Otherwise patient at baseline. Stable on room air. Afebrile. Hemodynamics normalized. Tolerating home medications. Medically stable for discharge home. Will monitor through the day given stool output but plan to get home later this afternoon/evening. Objective Vital signs: Temp Pulse Resp BP Pulse Ox 100.1 F H 91 H 18 163/69 H 94 L 08/07/20 23:58 08/07/20 23:58 08/07/20 23:58 08/07/20 23:58 08/07/20 23:58 Narrative: - Constitutional no acute distress, average body habitus, chronically ill appearing; stable on Room air - *Routine HEENT Exam Head: Present: normocephalic Eye: Present: EOMI, PERRL ENT: Present: mucous membranes moist - *Routine Neck Exam Present: supple. Absent: lymphadenopathy - *Routine Respiratory Exam Present: CTA bilaterally, rhonchi (Thick clear with cough). Absent: wheezes, crackles - *Routine Cardiovascular Exam Present: RRR - *Routine Abdominal Exam Present: soft, normoactive bowel sounds, tenderness (Minimal improved tenderness) - *Routine Extremities Exam Absent: cyanosis, clubbing, edema Comments: Sarcopenia - *Routine Skin Exam Present: pallor, warm. Absent: rash - *Routine Neurological Exam Present: alert, oriented X3 Results Labs on day of discharge: Labs from last 24 hours 08/08/20 08/08/20 08/07/20 07:16 07:16 14:05 WBC 7.3 RBC 3.07 L Hgb 8.7 L 8.4 L Hct 26.2 L 24.8 L MCV 85.2 MCH 28.4 MCHC 33.4 RDW 16.5 Plt Count 156 D MPV 8.8 Neut % (Auto) 77.8 Lymph % (Auto) 12.2 [place] % (Auto) 7.3 Eos % (Auto) 2.5 Baso % (Auto) 0.2 Neut # (Auto) 5.7 Lymph # (Auto) 0.9 [place] # (Auto) 0.5 Eos # (Auto) 0.2 Baso # (Auto) 0.0 Sodium 130 L P
[2020-08-09 14:16] LABS: Hemoglobin 8.4 g/dL (14.1-18.0)
--- NOTE | 2020-08-09 15:05 | PC.NURSE ---
PATIENT NOTED TO HAVE SOME BLOOD IN STOOL. IT WAS LIQUID STOOL WHICH WAS A DARKER RED WITH SOME CLOTS. MD WAS NOTIFIED AND WE CHECKED H/H WHICH REMAINED STABLE AT PATIENT BASELINE. MD WAS OKAY WITH CONTINUING DISCHARGE. STOOL WAS LIKELY OLDER BLOOD. EDUCATED FAMILY ON CONTINUING TO MONITOR BOWEL MOVEMENTS BUT WERE OKAY TO GO HOME.
== END 2020-08-09 15:07 | disposition hospice, home (50) | DRG 378 ==
LOC: ER 15:43 → 2ND 18:28
PROVIDERS: Internal Medicine Adolescent Medicine; Surgery; Admitting Provider Internal Medicine Adolescent Medicine; Emergency Provider Student in an Organized Health Care Education/Training Program; PCP Internal Medicine Adolescent Medicine; Visit Provider Internal Medicine Adolescent Medicine
PROC: 0DJ08ZZ Inspection of Upper Intestinal Tract, Via Natural or Artificial Opening Endoscopic (ICD-10-PCS; CPT 43235; principal; 2020-08-05 12:45)
DX: K26.4 Chronic or unspecified duodenal ulcer with hemorrhage (principal); J96.11 Chronic respiratory failure with hypoxia; D62 Acute posthemorrhagic anemia; T17.590A Other foreign object in bronchus causing asphyxiation, initial encounter; J44.9 Chronic obstructive pulmonary disease, unspecified; I25.10 Atherosclerotic heart disease of native coronary artery without angina pectoris; I10 Essential (primary) hypertension; E78.5 Hyperlipidemia, unspecified; Z95.1 Presence of aortocoronary bypass graft; Z95.5 Presence of coronary angioplasty implant and graft; Z88.0 Allergy status to penicillin; Z88.2 Allergy status to sulfonamides; K44.9 Diaphragmatic hernia without obstruction or gangrene; K57.10 Diverticulosis of small intestine without perforation or abscess without bleeding
CPT/HCPCS: 43255; 31635; 43235; 36415; 71045; 74019; 74177; 80048; 80053; 81001; 83605; 83690; 83735; 85007; 85014; 85018; 85025; 85610; 86850; 87581; 87633; 87798; 93306; 96365; 99284; J2405; J2704; P9016; Q9967

== ENCOUNTER 2020-10-09 09:46 | Outpatient (CLI) | payer OTHER, SELFPAY ==
[2020-10-09] VITALS (10 sets, daily range): BP systolic 168–190; BP diastolic 69–79; PULSE 57–59; RESP 20; TEMP 36.3–36.6; O2SAT 97–98; BMI 19.2
[2020-10-09 10:23] LABS: Hematocrit 28.2 % (42.0-52.0)
[2020-10-09 14:27] LABS: Hematocrit 29.9 % (42.0-52.0); Hemoglobin 9.7 g/dL (14.1-18.0)
== END 2020-10-09 14:20 | disposition home or self-care (01) ==
LOC: INF 09:48
PROVIDERS: PCP Internal Medicine Adolescent Medicine; Visit Provider Internal Medicine Adolescent Medicine
DX: D64.9 Anemia, unspecified (principal)
CPT/HCPCS: 36430; 85014; 85018; 86850; P9016

== ENCOUNTER 2021-01-27 11:15 | Observation (INO) | payer MEDICARE, OTHER, SELFPAY ==
[2021-01-27] VITALS (7 sets, daily range): BP systolic 98–155; BP diastolic 53–74; PULSE 46–83; RESP 16–18; TEMP 36.6–36.9; O2SAT 94–99; BMI 21.1
--- NOTE | 2021-01-27 11:19 | HMH.EDGENADL ---
ED Disposition Clinical Impression: Closed right hip fracture Qualifiers: Encounter type: initial encounter Qualified Code(s): S72.001A - Fracture of unspecified part of neck of right femur, initial encounter for closed fracture Disposition: Admitted As Inpatient Condition on Discharge: Fair - Critical Care Critical Care Time: No Attestation: On , the high probability of a clinically significant, sudden or life threatening deterioration of the following system(s) required my full and direct attention, intervention and personal management. The time I documented below is in addition to time spent performing reported procedures but includes the following listed in this critical care notation. Medical Decision Making - Amadeo Inquiry Pt receiving controlled substance: Yes Amadeo was queried for this patient: Yes Risks and benefits of using a controlled substance: were not discussed with pt by me Vital Signs: 01/27/21 11:15 01/27/21 13:10 Pulse Rate 61 Pulse Rate [Radial] 46 L Respiratory Rate 18 16 Blood Pressure 125/54 L Blood Pressure [Right Arm] 155/56 H Blood Pressure Mean [Right Arm] 89 Blood Pressure Source Automatic Cuff Blood Pressure Position Sitting Blood Pressure Position [Right Arm] Sitting 02 Sat by Pulse Oximetry 98 94 L Oxygen Delivery Method Room Air Room Air - Lab Data Lab Results 01/27/21 11:35: WBC 7.6, RBC 3.62 L, Hgb 10.9 L, Hct 35.3 L, MCV 97.6 H, MCH 30.0, MCHC 30.8 L, RDW 15.0, Plt Count 205, MPV 7.3 L, Neut % (Auto) 73.8, Lymph % (Auto) 15.7, [place] % (Auto) 6.5, Eos % (Auto) 2.9, Baso % (Auto) 1.0, Neut # (Auto) 5.6, Lymph # (Auto) 1.2, [place] # (Auto) 0.5, Eos # (Auto) 0.2, Baso # (Auto) 0.1 01/27/21 11:35: Sodium 139, Potassium 4.0, Chloride 107, Carbon Dioxide 23, Anion Gap 13.0, BUN 15, Creatinine 1.50 H, Estimated Creat Clear 33, Estimated GFR 45 L, Est GFR ( Amer) 54 L, Glucose 101 H, Calcium 8.3 L, Total Bilirubin 0.3, AST 20, ALT 9 L, Alkaline Phosphatase 132 H, Total Protein 6.2 L D, Albumin 3.4 L, Globulin 2.8, Albumin/Globulin Ratio 1.2 Result diagrams: 01/27/21 11:35 01/27/21 11:35 Orders (Tests/Meds): ED MEDICATIONS Discontinued Medications Generic Name Dose Route Start Last Admin Trade Name Emmanuel PRN Reason Stop Dose Admin Hydromorphone HCl 0.5 mg 01/27/21 13:34 01/27/21 13:37 Hydromorphone 2mg/Ml Syringe IV 01/27/21 13:35 0.5 mg ONCE ONE Administration Morphine Sulfate 4 mg 01/27/21 11:34 01/27/21 11:35 Morphine 4mg/Ml Syringe IV 01/27/21 11:35 4 mg ONCE ONE Administration Morphine Sulfate 4 mg 01/27/21 12:17 01/27/21 12:30 Morphine 4mg/Ml Syringe IV 01/27/21 12:18 4 mg ONCE ONE Administration Ondansetron HCl 4 mg 01/27/21 11:34 01/27/21 11:35 Ondansetron 4mg/2ml Vial IV 01/27/21 11:35 4 mg ONCE ONE Administration - ECG Data Tracing #1 EKG interpreted by William Miller MD: Rhythm: sinus bradycardia with sinus arrhythmia Rate: 59 [place]: normal Ectopy: none Conduction: normal ST Segment Changes: none T Wave Changes: none Q Waves: none No evidence of acute ischemia or injury Baseline artifact and wander present, but I consider the EKG adequate for accurate interpretation. - Physician Consults Physician Consulted: Wan Time: 12:34 Reason -: Orthopedic Eval/Care Comment/Response: N.p.o. after midnight Additional Consult: Alcira Time: 12:41 Reason -: Admission Comment/Response: Agrees to admit the patient to the hospital. We discussed the patient's clinical information, including history, exam, laboratory and radiology results and ED course. Per hospital procedure, I will write temporary bridge inpatient orders on the patient. Specific orders requested by the admitting physician: Per orthopedic General Adult HPI - General Chief complaint: Fall Stated complaint: fall Time Seen by Provider: 01/27/21 11:19 - History of Present Illness HPI narrative: Brought in by amb[facility]an
--- NOTE | 2021-01-27 11:24 | XR_ITS ---
PROCEDURE: XR HIP RT 2-3V W/PELVIS CLINICAL INDICATION: FALL injury with pain COMPARISON: CR XR PELVIS 1-2V from 07/26/2020 FINDINGS: There is an intertrochanteric fracture of the right femur nondisplaced. Minimal anterior angulation of the distal fracture fragment. AP view of the pelvis shows aortoiliac stent graft and prior gamma nail repair of the left hip. Vascular calcification noted. IMPRESSION: Nondisplaced right intertrochanteric hip fracture Dictated by: Michoacano De León MD 01/27/2021 12:08 Michoacano De León MD in OV 01/27/2021 12:08
--- NOTE | 2021-01-27 11:25 | XR_ITS ---
PROCEDURE: XR CHEST AP CLINICAL HISTORY: fall, hip injury COMPARISON: CT CT ANGIO CHEST from 07/20/2020 CR XR CHEST PORTABLE from 08/04/2020 CR XR CHEST PORTABLE from 08/06/2020 CR XR CHEST PORTABLE from 08/06/2020 FINDINGS: Prior CABG. Normal heart size. Coronary arteries stent is noted. There is biapical pleural thickening left greater than right which appear stable. Carotid artery calcification is present. The lungs are clear without infiltrates, suspicious nodules, or pleural effusions. No acute bony abnormalities. IMPRESSION: No change with no acute finding Dictated by: Michoacano De León MD 01/27/2021 12:49 Michoacano De León MD in OV 01/27/2021 12:49
[2021-01-27 11:37] LABS: Basophils # 0.1 K/mm3 (0-0.2); Eosinophils # 0.2 K/mm3 (0.0-0.4); Eosinophils % 2.9 % (0.1-12.0); Hematocrit 35.3 % (42.0-52.0); Hemoglobin 10.9 g/dL (14.1-18.0); Lymphocytes # 1.2 K/mm3 (0.7-4.5); Lymphocytes % 15.7 % (10-50); Mean Corpuscular HGB Conc 30.8 g/dL (31.8-35.4); Mean Corpuscular Volume 97.6 fl (80-94); Mean Platelet Volume 7.3 fl (7.4-10.4); Monocytes # 0.5 K/mm3 (0.1-1.0); Monocytes % 6.5 % (1.7-9.3); Neutrophils # 5.6 K/mm3 (1.8-7.8); Neutrophils % 73.8 % (37.0-80.0); Platelet Count 205 K/mm3 (142-424); Red Blood Count 3.62 M/mm3 (4.60-6.20); White Blood Count 7.6 K/mm3 (4.8-10.8)
--- NOTE | 2021-01-27 11:41 | PC.NURSE ---
pt to radiology
[2021-01-27 11:45] LABS: Chloride 107 mmol/L (98-107); Sodium 139 mmol/L (136-145)
[2021-01-27 11:48] LABS: Alanine Aminotransferase 9 U/L (12-78); Albumin Level 3.4 g/dl (3.5-5.0); Albumin/Globulin Ratio 1.2 (1.1-1.8); Alkaline Phosphatase 132 U/L (38-126); Aspartate Amino Transferase 20 U/L (17-59); Bilirubin,Total 0.3 mg/dl (0.2-1.3); Blood Urea Nitrogen 15 mg/dl (9-20); Calcium 8.3 mg/dl (8.4-10.2); Carbon Dioxide 23 mmol/L (22.0-30.0); Creatinine Clearance Estimated 33 mL/min (50-200); Estimated Glomerular Filt Rate 45 ml/min (>60); GFR (African American) 54 ML/MIN (>60); Globulin 2.8 g/dL (1.3-3.2); Glucose 101 mg/dl (74-100); Total Protein,Serum 6.2 g/dl (6.3-8.2)
--- NOTE | 2021-01-27 12:28 | PC.NURSE ---
Dr. Blas paged
--- NOTE | 2021-01-27 12:41 | PC.NURSE ---
spoke with Dr. Eli
--- NOTE | 2021-01-27 12:41 | PC.NURSE ---
Called care management for admission
--- NOTE | 2021-01-27 12:48 | PC.NURSE ---
1243 bed assignment requested. room 207. all staff notified
[2021-01-27 12:54] LABS: Coronavirus 19, PCR Not Detected (NotDetected); Influenza A, PCR Not Detected (NotDetected); Influenza B, PCR Not Detected (NotDetected)
--- NOTE | 2021-01-27 13:38 | PC.NURSE ---
REPORT CALLED TO FLOOR
--- NOTE | 2021-01-27 13:45 | ECG_ITS ---
APPROVED REPORT Exam: Resting ECG HR:59 bpm ECG Measurements Heart Rate 59 AXES CA 128 P 87 QRSd 110 QRS 42 QT 460 T 43 QTc 455 Conclusion Sinus bradycardia with marked sinus arrhythmia Otherwise normal ECG Electronically signed by : Ziggy Plascencia MD 01/28/2021 17:28:18
--- NOTE | 2021-01-27 13:50 | HMH.PHAINT ---
MEDICATION RECONCILIATION COMPLETE USING SURESCRIPTS AND PREVIOUS OFFICE VISIT
--- NOTE | 2021-01-27 14:30 | PC.NURSE ---
O2 SAT 88% RA 02 4l PER NASAL RED.
--- NOTE | 2021-01-27 15:12 | HMH.HP ---
*Admission Date: 01/27/21 *Chief complaint: fall, hip pain *History of present illness: Parish is an 85-year-old male with multiple comorbidities (see history below). He was brought in by an ambulance to the ER after sustaining a fall at home. is with patient at bedside, she states he just fell over. He did not trip or stumble. No other trauma sustained. Patient had immediate onset of right hip pain. On evaluation in the ER, found to have closed nondisplaced femoral neck fracture. No other trauma, head trauma, signs of bleeding. Patient otherwise at baseline. Denies chest pain, shortness of breath beyond baseline, nausea or vomiting. No confusion. Only complaining of right hip pain. [facility] History I have reviewed the patient's past medical history: Yes Medical History: Reports:: Arrhythmia, Atherosclerotic Heart Disease, Atrial Fibrillation, Chronic Obstructive Pulmonary Disease (COPD), Coronary Artery Disease, Hyperlipidemia, Hypertension, Myocardial Infarction Denies:: Cancer, Diabetes Mellitus Type 1, Diabetes Mellitus Type 2, MRSA, Seizures *Have you ever received a pneumonia vaccine?: No *Have you received a flu vaccine this season?: No Other Medical History: Reports: Anemia, Arthritis Laterality Cases: Left: Arthroscopy Hip Other Surgeries: Yes: CABG, Cardiac Catheterization, Cardiac Surgery, Open Heart Surgery Amputation: No - *Social History Smoking Status: Former smoker Tobacco Type: cigarettes # Packs/Day (cigarettes): 1 #Yrs smoked (if former smoker): 60 Alcohol Intake: never Substance Use Type: denies use *Occupational Status:: retired Housing: house Household Members: spouse *Travel in the last 8 weeks: None Family Hx:: Diabetes Review of Systems - Review of Systems Review of systems:: pertinent systems reviewed and negative unless documented below (14 point review of systems performed, pertinent positives and negatives as per HPI) - *Neurologic Denies headache(s), Denies numbness, Denies weakness Meds Home Medications Medication Instructions Recorded Confirmed Type Atorvastatin Calcium [Lipitor 40mg 40 mg PO HS 10/30/18 01/27/21 History Tab] carvediloL [Carvedilol 6.25mg Tab] 6.25 mg PO BID 07/17/20 01/27/21 History lisinopriL [Lisinopril] 10 mg PO DAILY 07/17/20 01/27/21 History Acetaminophen [Acetaminophen 325mg 650 mg PO Q4HP PRN tab 07/22/20 01/27/21 Rx tab] Ipratropium/Albuterol Sulfate 2 puffs IH QID PRN 30 Days #1 inh 07/22/20 01/27/21 Rx [Combivent Respimat Inh] Citalopram Hydrobromide 20 mg PO DAILY 07/26/20 01/27/21 History [Citalopram 20mg Tablet] Allergies Allergy/AdvReac Type Severity Reaction Status Date / Time Penicillins [PENICILLINS] Allergy Unknown Verified 07/26/20 11:18 Sulfa (Sulfonamide Allergy Unknown Verified 07/26/20 11:18 Antibiotics) [SULFA (SULFONAMIDE ANTIBIOTICS)] Exam Vital signs and Labs for Last 24 Hours: Temp Pulse Resp BP Pulse Ox 98.1 F 60 16 105/56 L 99 01/27/21 14:18 01/27/21 14:18 01/27/21 14:18 01/27/21 14:18 01/27/21 14:18 Laboratory Results - last 24 hr 01/27/21 11:35: WBC 7.6, RBC 3.62 L, Hgb 10.9 L, Hct 35.3 L, MCV 97.6 H, MCH 30.0, MCHC 30.8 L, RDW 15.0, Plt Count 205, MPV 7.3 L, Neut % (Auto) 73.8, Lymph % (Auto) 15.7, [place] % (Auto) 6.5, Eos % (Auto) 2.9, Baso % (Auto) 1.0, Neut # (Auto) 5.6, Lymph # (Auto) 1.2, [place] # (Auto) 0.5, Eos # (Auto) 0.2, Baso # (Auto) 0.1 01/27/21 11:35: Sodium 139, Potassium 4.0, Chloride 107, Carbon Dioxide 23, Anion Gap 13.0, BUN 15, Creatinine 1.50 H, Estimated Creat Clear 33, Estimated GFR 45 L, Est GFR ( Amer) 54 L, Glucose 101 H, Calcium 8.3 L, Total Bilirubin 0.3, AST 20, ALT 9 L, Alkaline Phosphatase 132 H, Total Protein 6.2 L D, Albumin 3.4 L, Globulin 2.8, Albumin/Globulin Ratio 1.2 01/27/21 12:50: SARS-CoV-2 (PCR) Not detected, Influenza A Untype (PCR) Not detected, Influenza Type B (PCR) Not detected I & O for Last 24 hours: I
--- NOTE | 2021-01-27 15:47 | P.CONPHA_ITS ---
[facility] Pharmacy VTE Monitoring - Patient Demographics Admission date: 01/27/21 Report Date: 01/27/21 Time: 15:47 Allergies/Adverse Reactions: Patient Allergies Penicillins [PENICILLINS] Allergy (Unknown, Verified 07/26/20 11:18) Sulfa (Sulfonamide Antibiotics) [SULFA (SULFONAMIDE ANTIBIOTICS)] Allergy (Unknown, Verified 07/26/20 11:18) Height: 1.78 m Weight: 66.877 kg Patient Problems: Current Active Problems Closed right hip fracture (Acute) - VTE Risk Labs: VTE Related Lab Results Hgb 10.9 g/dL (14.1-18.0) L 01/27/21 11:35 Hct 35.3 % (42.0-52.0) L 01/27/21 11:35 Plt Count 205 K/mm3 (142-424) 01/27/21 11:35 BUN 15 mg/dl (9-20) 01/27/21 11:35 Creatinine 1.50 mg/dl (0.66-1.25) H 01/27/21 11:35 Estimated Creat Clear 33 mL/min (50-200) 01/27/21 11:35 VTE Score: 3 VTE Risk Level: Low Risk - Prophylaxis VTE Prophylaxis Ordered?: Yes Types of VTE Prophylaxis: TEDS Knee High Location of Applied Device: Bilateral Lower Extremeties
[2021-01-28] VITALS (23 sets, daily range): BP systolic 102–137; BP diastolic 43–62; PULSE 53–80; RESP 12–18; TEMP 36.2–38; O2SAT 86–100; BMI 21.8
--- NOTE | 2021-01-28 07:32 | PC.NURSE ---
at to see pt.
--- NOTE | 2021-01-28 07:52 | HMH.ACPN2 ---
Internal Medicine - PN: Subj *Date: 01/28/21 *Time: 07:52 Interval history: Patient had a fairly good night overnight, pain seems to be well controlled and he is actually in good spirits today. Exam Vital signs and Labs for Last 24 Hours: Temp Pulse Resp BP Pulse Ox 98.4 F 63 18 106/54 L 99 01/28/21 04:32 01/28/21 04:32 01/28/21 04:32 01/28/21 04:32 01/28/21 04:32 Laboratory Results - last 24 hr 01/27/21 11:35: WBC 7.6, RBC 3.62 L, Hgb 10.9 L, Hct 35.3 L, MCV 97.6 H, MCH 30.0, MCHC 30.8 L, RDW 15.0, Plt Count 205, MPV 7.3 L, Neut % (Auto) 73.8, Lymph % (Auto) 15.7, [place] % (Auto) 6.5, Eos % (Auto) 2.9, Baso % (Auto) 1.0, Neut # (Auto) 5.6, Lymph # (Auto) 1.2, [place] # (Auto) 0.5, Eos # (Auto) 0.2, Baso # (Auto) 0.1 01/27/21 11:35: Sodium 139, Potassium 4.0, Chloride 107, Carbon Dioxide 23, Anion Gap 13.0, BUN 15, Creatinine 1.50 H, Estimated Creat Clear 33, Estimated GFR 45 L, Est GFR ( Amer) 54 L, Glucose 101 H, Calcium 8.3 L, Total Bilirubin 0.3, AST 20, ALT 9 L, Alkaline Phosphatase 132 H, Total Protein 6.2 L D, Albumin 3.4 L, Globulin 2.8, Albumin/Globulin Ratio 1.2 01/27/21 12:50: SARS-CoV-2 (PCR) Not detected, Influenza A Untype (PCR) Not detected, Influenza Type B (PCR) Not detected I & O for Last 24 hours: Intake & Output 01/25/21 01/26/21 01/27/21 01/28/21 11:59 11:59 11:59 11:59 Intake Total 240 / 240 Output Total 0 / 0 Balance 240 / 240 Weight 140 lb 152 lb 5 oz Narrative: Patient has fairly good air entry. His lungs actually sound better than the last time I examined him several months ago. Heart rate regular. He is oriented x3. Abdomen is soft. Extremity exam per orthopedics. No edema or clubbing. Assessment and Plan (1) Closed right hip fracture Status: Acute Qualifiers: Encounter type: initial encounter Qualified Code(s): S72.001A - Fracture of unspecified part of neck of right femur, initial encounter for closed fracture Category: Medical Code(s): S72.001A - Fracture of unspecified part of neck of right femur, initial encounter for closed fracture (2) Chronic anemia Status: Chronic Category: Medical Code(s): D64.9 - Anemia, unspecified (3) COPD (chronic obstructive pulmonary disease) Problem details: End-stage disease Status: Chronic Qualifiers: COPD type: unspecified COPD Qualified Code(s): J44.9 - Chronic obstructive pulmonary disease, unspecified Category: Medical Code(s): J44.9 - Chronic obstructive pulmonary disease, unspecified (4) CAD (coronary artery disease) Status: Chronic Qualifiers: Coronary Disease-Associated Artery/Lesion type: [place] artery [place] vs. transplanted heart: [place] heart Associated angina: without angina Qualified Code(s): I25.10 - Atherosclerotic heart disease of [place] coronary artery without angina pectoris Category: Medical Code(s): I25.10 - Atherosclerotic heart disease of [place] coronary artery without angina pectoris (5) CKD (chronic kidney disease) stage 3, GFR 30-59 ml/min Status: Chronic Category: Medical Code(s): N18.30 - Chronic kidney disease, stage 3 unspecified (6) Chronic hypoxemic respiratory failure Status: Chronic Category: Medical Code(s): J96.11 - Chronic respiratory failure with hypoxia (7) HTN (hypertension) Status: Chronic Category: Medical Code(s): I10 - Essential (primary) hypertension - Assessment and plan all Dx Assessment and Plan for all problems:: Plan will be for hip fracture repair today. Patient is certainly at higher risk than average for surgery given his lung disease and age but he is at this point optimized from his lung status. Would recommend proceeding with surgery given his ambulatory status and considerable risk of not doing the procedure. Talked with patient possible rehab placement afterwards depending on how he does with PT.
--- NOTE | 2021-01-28 09:00 | PC.NURSE ---
Dr. Blas's PA at bs discussing surgery with pt. Pt's also present.
--- NOTE | 2021-01-28 11:09 | HMH.ORTHOCON ---
*Admission Date: 01/27/21 <Felisha Canchola - 01/28/21 11:10> *Reason for consult:: Right intertrochanteric hip fracture <Felisha Canchola - 01/28/21 11:10> *History of present illness: Patient sustained a left proximal femur fracture in farm related injury about 25 years ago and had a dynamic hip screw fixation. <Vito Blas - 01/28/21 14:19> Patient is a 85-year-old male who was brought to the emergency department on 01/27/2021 with right hip pain after sustaining a fall at home. He reports that he was transferring to a chair when he unexpectedly fell. He was unable to get up and walk after falling and reported immediate right hip pain. Patient denies any dizziness, headache, chest or neck pain. He lives at home with his and usually walks using a cane or walker but reports that he was not using either at the time of his fall. He reports that his pain is well controlled at rest but any movements of the right leg elicit hip pain. He denies loss of consciousness, chest pain, or shortness of breath. He reports he had a similar injury to his left hip approximately 25 years ago and underwent a cephalomedullary nailing at that time in [place]. His past medical history includes COPD, chronic anemia, CAD, CKD, hypertension, and hyperlipidemia. <Felisha Canchola - 01/28/21 11:14> [facility] History Medical History: Reports:: Arrhythmia, Atherosclerotic Heart Disease, Atrial Fibrillation, Chronic Obstructive Pulmonary Disease (COPD), Coronary Artery Disease, Hyperlipidemia, Hypertension, Myocardial Infarction Denies:: Cancer, Diabetes Mellitus Type 1, Diabetes Mellitus Type 2, MRSA, Seizures <Felisha Canchola - 01/28/21 11:10> *Have you ever received a pneumonia vaccine?: No <Felisha Canchola 01/28/21 11:10> *Have you received a flu vaccine this season?: No <Felisha Canchola 01/28/21 11:10> Other Medical History: Reports: Anemia, Arthritis <Felisha Canchola 01/28/21 11:10> Laterality Cases: Left: Arthroscopy Hip <Felisha Canchola 01/28/21 11:10> Other Surgeries: Yes: CABG, Cardiac Catheterization, Cardiac Surgery, Open Heart Surgery <Felisha Canchola 01/28/21 11:10> Amputation: No <Felisha Canchola 01/28/21 11:10> - *Social History Smoking Status: Former smoker <Felisha Canchola 01/28/21 11:10> Tobacco Type: cigarettes <Felisha Canchola 01/28/21 11:10> # Packs/Day (cigarettes): 1 <Felisha Canchola 01/28/21 11:10> #Yrs smoked (if former smoker): 60 <Felisha Canchola 01/28/21 11:10> Alcohol Intake: never <Felisha Canchola 01/28/21 11:10> Substance Use Type: denies use <Felisha Canchola 01/28/21 11:10> *Occupational Status:: retired <Felisha Canchola 01/28/21 11:10> Housing: house <Felisha Canchola 01/28/21 11:10> Household Members: spouse <Felisha Canchola 01/28/21 11:10> *Travel in the last 8 weeks: None <Felisha Canchola 01/28/21 11:10> Family Hx:: Unable to obtain <Felisha Canchola 01/28/21 11:10> Review of Systems - Review of Systems Review of systems:: pertinent systems reviewed and negative unless documented below <Felisha Canchola 01/28/21 11:19> - *Neurologic Denies headache(s), Denies numbness, Denies weakness <Felisha Canchola 01/28/21 11:10> Meds Home Medications Medication Instructions Recorded Confirmed Type Atorvastatin Calcium [Lipitor 40mg 40 mg PO HS 10/30/18 01/27/21 History Tab] carvediloL [Carvedilol 6.25mg Tab] 6.25 mg PO BID 07/17/20 01/27/21 History lisinopriL [Lisinopril] 10 mg PO DAILY 07/17/20 01/27/21 History Acetaminophen [Acetaminophen 325mg 650 mg PO Q4HP PRN tab 07/22/20 01/27/21 Rx tab] Ipratropium/Albuterol Sulfate 2 puffs IH QID PRN 30 Days #1 inh 07/22/20 01/27/21 Rx [Combivent Respimat Inh] Citalopram Hydrobromide 20 mg PO DAILY 07/26/20 01/27/21 History [Citalopram 20mg Tablet] <Vito Blas - 01/28/21 14:19> Allergies Allergy/AdvReac Type Severity Reaction Status Date / Time Penicillins [PENICIL
--- NOTE | 2021-01-28 12:22 | PC.NURSE ---
here to see pt and discuss surgery. Pt's and daughter are at bs as well.
--- NOTE | 2021-01-28 13:21 | PC.NURSE ---
Anesthesia at bs to see pt and discuss POC
--- NOTE | 2021-01-28 14:08 | XR_ITS ---
PROCEDURE: XR HIP RT 2-3V W/PELVIS CLINICAL INDICATION: C-ARM CASE, GAMMA NAIL RIGHT HIP COMPARISON: No exams were available for comparison FINDINGS: Fluoroscopy time: 3.5 minutes Interval gamma nail fixation of the intertrochanteric fracture with short intramedullary jhony which appears to be in good alignment on the images submitted. IMPRESSION: Post ORIF right hip with fluoroscopic assistance. Dictated by: Michoacano De León MD 01/28/2021 19:28 Michoacano De León MD in OV 01/28/2021 19:28
--- NOTE | 2021-01-28 14:25 | PC.NURSE ---
Pt taken to O.R. via bed and O.R. staff x2.
--- NOTE | 2021-01-28 16:19 | HMH.ANESCL ---
[facility] Anesthesia Checklist - Patient Identification Patient Identification: Arm Band, Verbal (Name & ) - Structural Data Admitted From: Inpatient Planned Operative Procedure/s: Right Cepalo medullary nail to right femur Consent for Planned Operative Procedure(s) Verified: Yes Verified Documents: Surgical Consent - NPO Status Verified Time NPO: 00:00 - Chart Verification Results Verified: CBC, BMP, ECG, Chest Xray - Cardiovascular Assessment Heart Sounds: S1 & S2 Pulse Rhythm: Regular, Irregular - Airway Assessment C-Spine Mobility Assessed: Yes TMJ Mobility Assessed: Yes Dentition: Edentulous - Neurological Assessment Level of Consciousness: Awake, Alert, Appropriate - Anesthesia Plan Anesthesia Risk discussed: Yes (At length with spouse) ASA Class: III Anesthesia Type: General [facility] History Medical History: Reports:: Arrhythmia, Atherosclerotic Heart Disease, Atrial Fibrillation, Chronic Obstructive Pulmonary Disease (COPD), Coronary Artery Disease, Hyperlipidemia, Hypertension, Myocardial Infarction Denies:: Cancer, Diabetes Mellitus Type 1, Diabetes Mellitus Type 2, MRSA, Seizures *Have you ever received a pneumonia vaccine?: No *Have you received a flu vaccine this season?: No Other Medical History: Reports: Anemia, Arthritis Anesthesia experience/problems:: no issues Laterality Cases: Left: Arthroscopy Hip Other Surgeries: Yes: CABG, Cardiac Catheterization, Cardiac Surgery, Open Heart Surgery Amputation: No - *Social History Smoking Status: Former smoker Tobacco Type: cigarettes # Packs/Day (cigarettes): 1 #Yrs smoked (if former smoker): 60 Alcohol Intake: never Substance Use Type: denies use *Occupational Status:: retired Housing: house Household Members: spouse *Travel in the last 8 weeks: None Family Hx:: Unable to obtain
[2021-01-28 16:58] LABS: Microscopic,Cath URINE MICROSCOPIC (MICROSCOPIC)
[2021-01-28 17:27] LABS: Appearance,Urine/Cath SL CLOUDY (Clear); Bilirubin,Cath Negative (Negative); Blood, Urine/Cath Negative (Negative); Color,Urine/Cath YELLOW (Yellow); Glucose,Urine/Cath (UA) Negative (Negative); Ketones,Urine/Cath Negative (Negative); Leukocyte Esterase,Cath Negative (Negative); Nitrate,Cath Negative (Negative); Protein,Urine/Cath Negative (Negative); Specific Gravity, Urine/Cath 1.025 (1.005-1.030); Urobilinogen,Cath 0.2 EU/dl (0.2)
[2021-01-28 17:44] LABS: Bacteria,Urine/Cath TRACE /lpf
--- NOTE | 2021-01-28 17:44 | HMH.ANESI ---
[facility] Anesthesia Record Part I Intake, IV Amount: 1,000 Estimated blood loss (mL): 150 Urine output (mL): 150 Blood Pressure: 104/46 SaO2: 94 Pulse Rate: 72 Respiratory Rate: 16 Temperature: 97.6 F Patient is:: Drowsy, Mask O2, Oral/Nasal airway, Stable Stable to PACU at:: 17:48
--- NOTE | 2021-01-28 18:09 | PC.NURSE ---
Report received from BRUSHING MACHINE OPERATOR (Devante)
--- NOTE | 2021-01-28 18:13 | PC.NURSE ---
pt returned to room from PACU.
--- NOTE | 2021-01-28 18:44 | HMH.OPNOTE ---
Date of procedure: 01/28/21 Pre-op Diagnosis:: Intertrochanteric fracture, right hip Post-op Diagnosis:: Same Procedure performed:: Cephalomedullary nailing, right hip Surgeon:: Vito Blas MD Speech And Hearing Director(s):: Felisha Canchola PA-C NATUROPATHIC ONCOLOGY PROVIDER:: Other (Abraham Grimaldo) Anesthesia: GETA Estimated blood loss (mL): 150 Clinical Note:: Patient is an 85-year-old male who sustained injury to his right hip following a fall at home yesterday. He reports that he was transferring to a chair when he unexpectedly fell. Following evaluation in the emergency room where x-ray showed a minimally displaced intertrochanteric fracture of the right proximal femur, patient was admitted for further management. After evaluating the patient, I have discussed the diagnosis and management options in detail including nonsurgical and surgical, with the patient and his . After a detailed discussion, a decision was made to fix the fracture internally with a cephalo-medullary nail. I have discussed the procedure, risks and benefits, postoperative recovery and rehabilitation and the expected outcomes. The complications discussed include but are not limited to DVT, PE, infection, bleeding, injury to nerves and blood vessels, screw cut-out/implant failure, loss of fixation, nonunion, malunion/malrotation, osteonecrosis of the femoral head, femoral shaft fracture, painful hardware, heterotopic ossification, stiffness, weakness, incomplete relief of pain, incomplete return of function or motion and the likely need for further surgery in future, and anesthetic/medical complications including heart attack, stroke, transfusion reaction or . The patient wished to proceed with the surgical remediation. Consent form was reviewed and signed by me. The limb was appropriately marked and initialed by me. His medical history includes COPD, chronic anemia, CAD, CKD, hypertension, and hyperlipidemia. Following appropriate preoperative workup including medical clearance, patient is brought to the operating room for surgery. The surgery is indicated to stabilize the fracture, relieve pain and improve function. Patient understood the risks, agreed to proceed with surgery, signed the consent form and no guarantees or assurances were given or implied. Operative findings:: Comminuted, minimally displaced intertrochanteric fracture right proximal femur as noted on the preoperative imaging. The fracture is well reduced and fixed in a stable fashion with an intermediate cephalomedullary nail. 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 Operative note:: Following appropriate preoperative workup and medical clearance, patient is brought to the operating room and a general anesthesia was administered by the software integration developer. Patient was then positioned supine on the fracture table and all the bony prominences were appropriately padded. The right foot was secured in the footplate and the footplate was attached to the fracture table. The left leg was placed out of the way in a leg sal. Under fluoroscopic guidance the fracture was noted to be well reduced with overall good alignment. The right hip and thigh were then prepped and draped in the usual sterile fashion. Administration of prophylactic antibiotics was confirmed with the software integration developer (IV Ancef and vancomycin were administered). A preprocedure timeout was performed as per the hospital protocol. After marking the level of the greater trochanter on the skin under fluoroscopy, a skin incision was made proximal to the greater trochanter in line with the femoral shaft. The dissection was then carried through the subcutaneous tissue. The tensor fascia muscle was split in line with the fibers. This provided access to the tip of the greater trochanter. Under fluoroscopic guidance a guidewire was placed at the tip of the greater trochanter, the position was confirmed on both fluoroscopic views and advanced into the proximal femur. The proximal segment was then reamed over the guidewi
[2021-01-29] VITALS (7 sets, daily range): BP systolic 96–118; BP diastolic 42–64; PULSE 68–83; RESP 16–19; TEMP 36.5–37.1; O2SAT 3–99; BMI 21.8
--- NOTE | 2021-01-29 03:09 | PC.NURSE ---
No acute changes. At beginning of shift pt was waking up coming up to floor at 18:13 from surgery. Pt stated name and birthday but could not answer any other orientation questions. Pt rested well all shift. Remains on 4L NC with O2 saturation >90%. Dressing to right hip in place, SCDS in place on BLE. Pt voiced no needs for pain control this shift. VSS, call light within reach, will continue to monitor.
[2021-01-29 06:18] LABS: Basophils # 0.1 K/mm3 (0-0.2); Basophils % 0.4 % (0.1-2.0); Eosinophils # 0.2 K/mm3 (0.0-0.4); Eosinophils % 1.8 % (0.1-12.0); Hematocrit 27.5 % (42.0-52.0); Hemoglobin 8.2 g/dL (14.1-18.0); Lymphocytes % 7.6 % (10-50); Mean Corpuscular Hemoglobin 29.8 pg (27.0-31.2); Mean Corpuscular Volume 99.5 fl (80-94); Mean Platelet Volume 7.3 fl (7.4-10.4); Monocytes # 0.8 K/mm3 (0.1-1.0); Monocytes % 6.2 % (1.7-9.3); Neutrophils # 10.8 K/mm3 (1.8-7.8); Neutrophils % 84.1 % (37.0-80.0); Platelet Count 141 K/mm3 (142-424); Red Blood Count 2.77 M/mm3 (4.60-6.20); Red Cell Distribution Width 14.7 % (11.5-17.5); White Blood Count 12.9 K/mm3 (4.8-10.8)
[2021-01-29 06:59] LABS: Chloride 107 mmol/L (98-107)
[2021-01-29 07:00] LABS: Potassium 4.6 mmoL/L (3.5-5.1); Sodium 137 mmol/L (136-145)
[2021-01-29 07:02] LABS: Alanine Aminotransferase 11 U/L (12-78); Aspartate Amino Transferase 31 U/L (17-59); Blood Urea Nitrogen 23 mg/dl (9-20); Creatinine Clearance Estimated 34 mL/min (50-200); Estimated Glomerular Filt Rate 41 ml/min (>60); GFR (African American) 50 ML/MIN (>60)
[2021-01-29 07:03] LABS: Albumin Level 2.6 g/dl (3.5-5.0); Albumin/Globulin Ratio 1.1 (1.1-1.8); Alkaline Phosphatase 103 U/L (38-126); Anion Gap 12.6 mEq/L (5-15); Bilirubin,Total 0.2 mg/dl (0.2-1.3); Calcium 7.4 mg/dl (8.4-10.2); Carbon Dioxide 22 mmol/L (22.0-30.0); Globulin 2.4 g/dL (1.3-3.2); Glucose 115 mg/dl (74-100)
--- NOTE | 2021-01-29 08:39 | HMH.ACPN2 ---
Internal Medicine - PN: Subj *Date: 01/29/21 *Time: 08:39 Interval history: Patient did well with surgery yesterday. This morning he is awake, alert, pleasant and talkative. His notes that he was slightly disoriented through the night. This has cleared. Exam Vital signs and Labs for Last 24 Hours: Temp Pulse Resp BP Pulse Ox 98.8 F 69 18 117/46 L 99 01/29/21 04:00 01/29/21 04:00 01/29/21 04:00 01/29/21 04:00 01/29/21 04:00 Laboratory Results - last 24 hr 01/28/21 13:10: Blood Type O Negative, Antibody Screen Negative 01/28/21 15:30: Urine Color Yellow, Urine Appearance Sl cloudy, Urine pH 6.0, Ur Specific [place] 1.025, Urine Protein Negative, Urine Glucose (UA) Negative, Urine Ketones Negative, Urine Blood Negative, Urine Nitrate Negative, Urine Bilirubin Negative, Urine Urobilinogen 0.2, Ur Leukocyte Esterase Negative, Urine RBC None, Urine WBC 3-5, Ur Squamous Epith Cells None, Urine Bacteria Trace 01/29/21 05:56: WBC 12.9 H D, RBC 2.77 L, Hgb 8.2 L, Hct 27.5 L, MCV 99.5 H, MCH 29.8, MCHC 30.0 L, RDW 14.7, Plt Count 141 L D, MPV 7.3 L, Neut % (Auto) 84.1 H, Lymph % (Auto) 7.6 L, [place] % (Auto) 6.2, Eos % (Auto) 1.8, Baso % (Auto) 0.4, Neut # (Auto) 10.8 H, Lymph # (Auto) 1.0, [place] # (Auto) 0.8, Eos # (Auto) 0.2, Baso # (Auto) 0.1 01/29/21 05:56: Sodium 137, Potassium 4.6, Chloride 107, Carbon Dioxide 22, Anion Gap 12.6, BUN 23 H D, Creatinine 1.60 H, Estimated Creat Clear 34, Estimated GFR 41 L, Est GFR ( Amer) 50 L, Glucose 115 H, Calcium 7.4 L, Total Bilirubin 0.2, AST 31 D, ALT 11 L, Alkaline Phosphatase 103, Total Protein 5.0 L, Albumin 2.6 L, Globulin 2.4, Albumin/Globulin Ratio 1.1 I & O for Last 24 hours: Intake & Output 01/26/21 01/27/21 01/28/21 01/29/21 11:59 11:59 11:59 11:59 Intake Total 240 / 240 1000 / 1000 Output Total 0 / 0 150 / 150 Balance 240 / 240 850 / 850 Weight 140 lb 152 lb 5 oz 152 lb 4 oz Narrative: Patient has rhonchi in both lungs, but good air movement, heart rate regular. Abdomen is soft, no extremity edema, wiggles his toes well. Has pain but reports the pain medicine does pretty well with relieving this. ENT exam clear. Neurologic exam nonfocal. He is oriented x3. Assessment and Plan (1) Closed right hip fracture Status: Acute Qualifiers: Encounter type: initial encounter Qualified Code(s): S72.001A - Fracture of unspecified part of neck of right femur, initial encounter for closed fracture Category: Medical Code(s): S72.001A - Fracture of unspecified part of neck of right femur, initial encounter for closed fracture (2) Chronic anemia Status: Chronic Category: Medical Code(s): D64.9 - Anemia, unspecified (3) COPD (chronic obstructive pulmonary disease) Problem details: End-stage disease Status: Chronic Qualifiers: COPD type: unspecified COPD Qualified Code(s): J44.9 - Chronic obstructive pulmonary disease, unspecified Category: Medical Code(s): J44.9 - Chronic obstructive pulmonary disease, unspecified (4) CAD (coronary artery disease) Status: Chronic Qualifiers: Coronary Disease-Associated Artery/Lesion type: [place] artery [place] vs. transplanted heart: [place] heart Associated angina: without angina Qualified Code(s): I25.10 - Atherosclerotic heart disease of [place] coronary artery without angina pectoris Category: Medical Code(s): I25.10 - Atherosclerotic heart disease of [place] coronary artery without angina pectoris (5) CKD (chronic kidney disease) stage 3, GFR 30-59 ml/min Status: Chronic Category: Medical Code(s): N18.30 - Chronic kidney disease, stage 3 unspecified (6) Chronic hypoxemic respiratory failure Status: Chronic Category: Medical Code(s): J96.11 - Chronic respiratory failure with hypoxia (7) HTN (hypertension) Status: Chronic Category: Medical Code(s): I10 - Essential (primary) hypertension - Assessment and plan all Dx Assessment and Plan
--- NOTE | 2021-01-29 09:30 | HMH.PTEV ---
Physical Therapy Evaluation Rehab PT IP Evaluation Start: 01/28/21 18:38 Freq: ONCE Status: Active Protocol: Document 01/29/21 08:58 OSKAR (Rec: 01/29/21 09:25 OSKAR [id number]) Subjective/History History History This is the initial evaluation for Mark Lugo. Pt is an 85 y/o male admitted to hospital with a R femoral neck fracture after having a fall at home. Pt had a cephalomedullary nail placed in it 01/28/21. Pt is now stable and on supplementle O2. Pt's and family member were in room upon arrival. - note done by Radha Toro, SPT Subjective Subjective Pt's states that the pt just randomly fell one day while at home. She said he didn't trip or lose balance. Pt states he has a w/c, cane, and a rollator at home but that he doesn't always use it. Pt's states he usually walks to their barn which is about 100 feet away with no walking device. Pt reported great pain in his hip at this time. Rehab PT IP Eval Objective Appearance Patient Behavior Aggressive,Anxious,Fatigued, Fearful,Resistive to Care Patient Orientation Name,Birthday,Situation Difficulty following instructions moderate Speech Pattern Soft-Spoken,Includes Profanity ,Monotone,Mumbled,Poor Articulation Ambulation Patient Able to Ambulate No Balance Ability to Arise Unable Sitting Balance Leans or slides in chair Standing Balance Unsteady Dynamic Sitting Balance Ability Poor Dynamic Standing Balance Ability Zero Transfers Bed Transfer Ability Total/Dependent (100%) Chair Transfer Ability Total/Dependent (100%) Sit to Stand Chair Transfer Ability Total/Dependent (100%) Rehab PT IP prob,goals,plan Problems Date of Evaluation: 01/29/21 PT IP Problems Bed Mobility,Transfers,Gait, Balance,Self care,Safety Rehab Potential Rehab Potential Fair Equipment Needs Assistive Devices Rolling / Wheeled Walker Plan PT Intervention Plan
--- NOTE | 2021-01-29 09:34 | HMH.ORTHPN ---
Subjective Date: 01/29/21 <CancholaFelisha - 01/29/21 09:38> Time: 09:00 <Felisha Canchola - 01/29/21 09:38> Principal diagnosis: Right hip fracture <Felisha Canchola - 01/29/21 09:38> Interval history: Patient is an 85-year-old male status post cephalomedullary nailing right hip postop day #1. Patient is sitting up in a chair at bedside. His reports that he has been doing well today and has been eating and drinking well. He reports that his hip pain is well controlled with medication. No history of any nausea, vomiting, chest pain, or shortness of breath. He denies distal numbness or tingling or any other symptoms or concerns at this time. <Felisha Canchola - 01/29/21 09:38> PN: Obj Ex Vital signs: Temp Pulse Resp BP Pulse Ox 98.1 F 68 16 96/42 L 97 01/29/21 08:00 01/29/21 08:00 01/29/21 08:00 01/29/21 08:00 01/29/21 08:00 <Vito Blas - 01/29/21 14:33> Temp Pulse Resp BP Pulse Ox 98.8 F 69 18 117/46 L 99 01/29/21 04:00 01/29/21 04:00 01/29/21 04:00 01/29/21 04:00 01/29/21 04:00 <Felisha Canchola - 01/29/21 09:38> - Constitutional no acute distress, cooperative <Felisha Canchola 01/29/21 09:38> Comments: Alert, awake, active <Felisha Canchola 01/29/21 09:38> - Routine Respiratory Exam Absent: respiratory distress <Felisha Canchola 01/29/21 09:44> Comments: Able to speak in complete sentences, symmetric chest movement <Felisha Canchola 01/29/21 09:44> - Routine Cardiovascular Exam Present: RRR <Felisha Canchola 01/29/21 09:44> Comments: Normal peripheral pulses <Felisha Canchola 01/29/21 09:44> - Routine Abdominal Exam Present: soft. Absent: tenderness <Felisha Canchola 01/29/21 09:44> - Routine Extremities Exam Comments: Upon examination of the lower extremities: The limb lengths are equal and alignment is neutral. Dressing over the right hip is clean, dry, and intact. No evidence of bleeding or drainage noted. Attempted movements of the right hip are painful. Thigh and calf are soft and nontender; Homans' sign is negative. No clinical signs of DVT noted. Posterior tibial pulse 2+, dorsalis pedis pulse 1+. Sensation to light touch is grossly intact. <Felisha Canchola 01/29/21 09:44> - Routine Skin Exam Present: intact <Felisha Canchola 01/29/21 09:44> - Routine Neurological Exam Present: alert, oriented X3, moving all extremities, normal tone. Absent: motor deficit <Felisha Canchola 01/29/21 09:44> - Routine Psychiatric Exam Present: normal affect, cooperative <Felisha Canchola 01/29/21 09:44> - Urinary Catheter Management Coude Cath placed during this visit: no <Vito Blas 01/29/21 14:33> no <Felisha Canchola 01/29/21 13:47> Urethral indwelling: Yes <Felisha Canchola 01/29/21 09:44> Progress Note: A&P (1) Closed right hip fracture Status: Acute (2) Chronic anemia Status: Chronic (3) COPD (chronic obstructive pulmonary disease) Problem details: End-stage disease Status: Chronic (4) CAD (coronary artery disease) Status: Chronic (5) CKD (chronic kidney disease) stage 3, GFR 30-59 ml/min Status: Chronic (6) Chronic hypoxemic respiratory failure Status: Chronic (7) HTN (hypertension) Status: Chronic <Vito Blas 01/29/21 14:33> (1) Closed right hip fracture Status: Acute (2) Chronic anemia Status: Chronic (3) COPD (chronic obstructive pulmonary disease) Problem details: End-stage disease Status: Chronic (4) CAD (coronary artery disease) Status: Chronic (5) CKD (chronic kidney disease) stage 3, GFR 30-59 ml/min Status: Chronic (6) Chronic hypoxemic respiratory failure Status: Chronic (7) HTN (hypertension) Status: Chronic <Felisha Canchola - 01/29/21 13:47> Assessment and Plan for All Diagnoses:: I have personally examined this patient, and have reviewed the
--- NOTE | 2021-01-29 11:57 | HMH.OTEV ---
OT Inpatient Evaluation Rehab OT IP Evaluation Start: 01/28/21 18:38 Freq: ONCE Status: Complete Protocol: Document 01/29/21 11:46 JODYARSLAN (Rec: 01/29/21 11:57 CHANTELLEART [id number]) Rehab OT IP Assessment Subjective History Patient is an 85-year-old male who sustained injury to his right hip following a fall at home yesterday. He reports that he was transferring to a chair when he unexpectedly fell. Following evaluation in the emergency room where x- ray showed a minimally displaced intertrochanteric fracture of the right proximal femur, patient was admitted for further management. Patient recieved ORIF to the right hip on 01/27/21. Patient lives at home with in 2 story home with 1-2 AMBER all living access on the main floor. Patient used a rollator, cane and occ. a RW Subjective I can get up myself, just give me time! Patient required encouragement to participate in skilled IP OT services this date. Patient was instructed to participate in sit->stand transfers with usage of RW requiring Max A. Patient unable to complete a full stand with max A. Patient demonstrated poor static standing balance and stood <15 secs. Objective Patient Orientation Person,Place,Name,Age,Birthday ,Year Upper Extremity Gross ROM WFL Transfer Training Sit/Stand Transfer Assist Level Total/Dependent (100%) Rehab OT IP prob,goals,plan Problems Date of Evaluation: 01/29/21 OT IP Problems Bed Mobility,Transfers,Gait, Balance,Self care,Safety Rehab Potential Rehab Potential Good Equipment Needs Assistive Devices Rolling / Wheeled Walker Plan OT intervention Plan Bed Mobility,Transfers,Gait, Balance,Self care,Safety, Therapeutic Exercise OT Plan Frequency
--- NOTE | 2021-01-29 14:03 | SW/DCPLANNER ---
Addendum entered by Yuliet Stanwood 02/02/21 10:16: Donna with [facility] has stated this patient is approved for discharge today. COVID swab has been ordered for this patient. Addendum entered by Yuliet Stanwood 02/02/21 09:40: Donna w/ [facility] has stated that they are still waiting on approval for this patient. I will continue to follow up with patients family, MD and [facility]. Addendum entered by Yuliet Stanwood 01/30/21 10:30: Lanie with [facility] has stated that she can accept this patient. Precert process has been started. I will inform patients family and MD. Addendum entered by Yuliet Stanwood 01/30/21 09:49: Donna with [facility] has stated that patient information is currently being reviewed. Patients expressed an interest in [facility] if [facility] can not accept. I will fax patient information to Yana at [facility] this AM and continue to follow up with [facility] as well. Original Note: WENT IN TO SEE PATIENT AND TO DISCUSS DISCHARGE PLANNING.. PHYSICAL THERAPY STATED HE NEEDS SKILLED REHAB TO REGAIN INDEPENDENCE TO RETURN BACK HOME BUT PATIENT IS RESISTANT TO GOING ANYWHERE.. HE SAID HE WANTS TO GO HOME AND IT IS VERY CLEAR HIS CAN NOT CARE FOR HIM RIGHT NOW.. PATIENT WAS ON HOSPICE BEFORE HE BROKE HIS HIP. THEY REVOKED HIS HOSPICE SO HE CAN GET REHAB SERVICES. PATIENT HAS A HUMANA/MCR AND I HAVE SENT IT TO [facility] PATIENTS FIRST CHOICE, IF THEY CAN NOT ACCEPT HIM I MENTIONED TO THEM ABOUT [facility] AND SHE SAID LETS WAIT AND SEE WHAT [facility] SAYS FIRST...NOT SURE HE WILL GO EVEN IF ACCEPTED BUT REALIZES SHE CAN NOT CARE FOR HIM BY HERSELF AND SHE SAID SHE SAID SHE DOESN'T HAVE ANYONE TO STAY WITH THEM..DR PATTON WAS IN THE ROOM AND I WAS TALKING WITH PATIENT AND AND HE ENCOURAGED THEM TO THINK HARD ABOUT GOING SOMEWHERE, HE STATED HE IS AFRAID HE WILL BE RIGHT BACK WITH ANOTHER BROKEN BONE IF HE DOESN'T GET STRONGER AND CAN DO MORE FOR HIMSELF.. WAITING TO HEAR BACK FROM [facility]...
--- NOTE | 2021-01-29 16:48 | PC.NURSE ---
PT IS AOX4, ABLE TO ANSWER QUESTIONS APPROPRIATELY. HAS BEEN UP TO CHAIR FOR MOST OF SHIFT, TWO ASSIST TO TRANSFER THIS AM WITH PT/OT. NURSING STAFF HELPED PT BACK TO BED THIS EVENING. PT DISPLAYED DIFFICULTY WITH BEARING WEIGHT AND TAKING STEPS. REQUIRED BEING REMINDED TO STAND UP STRAIGHT, PT HAS BEEN EATING AND DRINKING WELL, DR PATTON GAVE V/O TO D/C FLUIDS IF PT WAS TOLERATING PO INTAKE. [facility] WAS D/C THIS AFTERNOON WELL. PT WAS MILDLY HYPOTENSIVE THIS AM BUT HAS SINCE IMPROVED. STILL REQUIRES 2LNC FOR O2 SUPPORT. DENIES N/V/D.
[2021-01-30] VITALS (8 sets, daily range): BP systolic 91–134; BP diastolic 34–68; PULSE 51–79; RESP 14–17; TEMP 36.5–36.8; O2SAT 93–99; BMI 21.4
--- NOTE | 2021-01-30 03:29 | PC.NURSE ---
No acute changes this shift. Pt c/o of pain to right hip x2 this shift, admin meds per mar with relief. Pt had some unmeasureable urine output this shift since having abraham d/c eariler today. Bladder does not feel distended, and pt denies any discomfort. Encouraged fluid intake t/o shift. Pt uses IS independently. Pt had full bed change this shift and tolerated rolling in bed well. VSS, call light within reach, will continue to monitor.
[2021-01-30 06:18] LABS: Basophils % 0.3 % (0.1-2.0); Eosinophils # 0.4 K/mm3 (0.0-0.4); Eosinophils % 3.2 % (0.1-12.0); Hematocrit 24.8 % (42.0-52.0); Hemoglobin 7.6 g/dL (14.1-18.0); Lymphocytes # 1.1 K/mm3 (0.7-4.5); Lymphocytes % 10.1 % (10-50); Mean Corpuscular HGB Conc 30.5 g/dL (31.8-35.4); Mean Corpuscular Hemoglobin 29.9 pg (27.0-31.2); Mean Platelet Volume 7.7 fl (7.4-10.4); Monocytes # 0.8 K/mm3 (0.1-1.0); Monocytes % 6.8 % (1.7-9.3); Neutrophils # 8.8 K/mm3 (1.8-7.8); Neutrophils % 79.5 % (37.0-80.0); Platelet Count 143 K/mm3 (142-424); Red Blood Count 2.53 M/mm3 (4.60-6.20); White Blood Count 11.1 K/mm3 (4.8-10.8)
[2021-01-30 06:22] LABS: Chloride 106 mmol/L (98-107); Sodium 136 mmol/L (136-145)
[2021-01-30 06:25] LABS: Blood Urea Nitrogen 29 mg/dl (9-20); Carbon Dioxide 25 mmol/L (22.0-30.0); Creatinine Clearance Estimated 25 mL/min (50-200); Estimated Glomerular Filt Rate 30 ml/min (>60); GFR (African American) 37 ML/MIN (>60)
[2021-01-30 06:26] LABS: Calcium 7.7 mg/dl (8.4-10.2); Glucose 127 mg/dl (74-100)
--- NOTE | 2021-01-30 07:35 | HMH.ACPN2 ---
Internal Medicine - PN: Subj *Date: 01/30/21 *Time: 16:34 Interval history: Mark remains afebrile this morning. No acute distress. Does appear more confused however. Is very slow to respond to questions. Denies any nausea or vomiting. concerned because he is more confused however. Stable on oxygen requirement. Pain well controlled, reports he just received pain medication shortly before exam this morning. Of note, on morning rounds, it was discovered that his had given him his antidepressant, blood pressure medication, and reflux medication. Blood pressure soft this morning on exam. Expressed concern that he has been getting double doses of medication if she has been giving them to him. Stressed the importance of her not giving him medication while he is with us in the hospital. This may be a factor in some of his confusion as well. Exam Vital signs and Labs for Last 24 Hours: Temp Pulse Resp BP Pulse Ox 98.2 F 78 17 105/40 L 96 01/30/21 03:57 01/30/21 03:57 01/30/21 03:57 01/30/21 03:57 01/30/21 03:57 Laboratory Results - last 24 hr 01/30/21 05:48: WBC 11.1 H, RBC 2.53 L, Hgb 7.6 L, Hct 24.8 L, MCV 98.0 H, MCH 29.9, MCHC 30.5 L, RDW 15.0, Plt Count 143, MPV 7.7, Neut % (Auto) 79.5, Lymph % (Auto) 10.1, [place] % (Auto) 6.8, Eos % (Auto) 3.2, Baso % (Auto) 0.3, Neut # (Auto) 8.8 H, Lymph # (Auto) 1.1, [place] # (Auto) 0.8, Eos # (Auto) 0.4, Baso # (Auto) 0.0 01/30/21 05:48: Sodium 136, Potassium 4.0, Chloride 106, Carbon Dioxide 25, Anion Gap 9.0, BUN 29 H D, Creatinine 2.10 H D, Estimated Creat Clear 25, Estimated GFR 30 L, Est GFR ( Amer) 37 L D, Glucose 127 H, Calcium 7.7 L I & O for Last 24 hours: Intake & Output 01/27/21 01/28/21 01/29/2122/21 23:59 23:59 23:59 23:59 Intake Total 240 / 240 1000 / 1000 1320 / 1320 Output Total 150 / 150 1050 / 1050 Balance 240 / 240 850 / 850 270 / 270 Weight 66.877 kg 69.088 kg 69.059 kg 68.084 kg Narrative: - Constitutional no acute distress, thin, chronically ill appearing, cooperative; Frail - *Routine HEENT Exam Head: Present: normocephalic Eye: Present: EOMI, PERRL ENT: Present: mucous membranes moist - *Routine Neck Exam Present: supple. Absent: lymphadenopathy - *Routine Respiratory Exam Present: CTA bilaterally, diminished air movement. Absent: crackles - *Routine Cardiovascular Exam Present: RRR - *Routine Abdominal Exam Present: soft, normoactive bowel sounds. Absent: tenderness - *Routine Extremities Exam Absent: cyanosis, clubbing, edema; Right hip tender to palpation, postsurgical bandage clean dry and intact - *Routine Skin Exam Present: warm. Absent: rash - *Routine Neurological Exam Present: alert, oriented X1 Assessment and Plan (1) Closed right hip fracture Status: Acute Qualifiers: Encounter type: initial encounter Qualified Code(s): S72.001A - Fracture of unspecified part of neck of right femur, initial encounter for closed fracture Category: Medical Code(s): S72.001A - Fracture of unspecified part of neck of right femur, initial encounter for closed fracture (2) Chronic anemia Status: Chronic Category: Medical Code(s): D64.9 - Anemia, unspecified (3) COPD (chronic obstructive pulmonary disease) Problem details: End-stage disease Status: Chronic Qualifiers: COPD type: unspecified COPD Qualified Code(s): J44.9 - Chronic obstructive pulmonary disease, unspecified Category: Medical Code(s): J44.9 - Chronic obstructive pulmonary disease, unspecified (4) CAD (coronary artery disease) Status: Chronic Qualifiers: Coronary Disease-Associated Artery/Lesion type: [place] artery [place] vs. transplanted heart: [place] heart Associated angina: without angina Qualified Code(s): I25.10 - Atherosclerotic heart disease of [place] coronary artery without angina pectoris Category: Medical Code(s): I25.10 - Atherosclerotic heart disease of [place] c
--- NOTE | 2021-01-30 08:26 | PC.NURSE ---
THIS RN WAS UNAWARE THAT PT'S HAD HOME MEDICATIONS IN HER POSSESSION. MEDICATION BOTTLES WERE NOTICED BY STAFF IN WINDOW. THIS RN ASKED PT IF SHE HAD GIVEN PT HOME MEDS AND SHE STATED THAT SHE DID. SHE ALSO STATED THAT SHE WROTE DOWN THE MEDICATIONS THAT SHE HAD GIVEN AND HANDED THIS RN A POST IT NOTE WITH MEDICATIONS LISTED. LIST OF MEDICATIONS INCLUDED: CITALOPRAM PRILOSEC CARVEDILOL MEDICATION DOSAGES WERE NOT LISTED. A TIME OF 0600 AM WAS ALSO WRITTEN ON THE NOTE. WAS MADE AWARE OF THE ABOVE. VITAL SIGNS WERE OBTAINED. VITAL SIGNS FOLLOWS BP 92/46, HR 66, 18 RPM, 99 ON 2LNC. PT DID NOT APPEAR TO BE IN ANY DISTRESS BUT DID SEEM SOMEWHAT LESS ENERGETIC THAN YESTERDAY. THE MEDS LISTED ABOVE WILL BE HELD THIS AM PER DR NOVOA. MEDICATIONS WERE SECURED IN MEDICATION DRAWER BY THIS RN. FAMILY WAS ALSO EDUCATED BY AND THIS RN THAT MEDICATIONS SHOULD ONLY BE GIVEN BY LICENSED STAFF WHILE PT IS ADMITTED TO THIS FACILITY. PT FAMILY VOICED UNDERSTANDING. WILL CONTINUE TO MONITOR PT.
--- NOTE | 2021-01-30 09:19 | HMH.ORTHPN ---
Subjective Date: 01/30/21 Time: 08:45 Principal diagnosis: Right hip fracture Interval history: Patient is an 85-year-old male status post cephalomedullary nailing right hip postop day #2. He is lying comfortably in bed this morning. He reports that he has been eating and drinking well. He reports that his hip hurts with any movement of the right leg, but his pain is well controlled with medication. No history of any nausea, vomiting, chest pain, or shortness of breath. He denies distal numbness or tingling or any other symptoms or concerns at this time. PN: Obj Ex Vital signs: Temp Pulse Resp BP Pulse Ox 97.8 F 66 16 93/43 L 99 01/30/21 08:00 01/30/21 08:00 01/30/21 08:00 01/30/21 08:00 01/30/21 08:00 - Constitutional no acute distress, cooperative Comments: Alert, awake, active - Routine Respiratory Exam Absent: respiratory distress Comments: Able to speak in complete sentences, symmetric chest movement - Routine Cardiovascular Exam Present: RRR Comments: normal peripheral pulses - Routine Abdominal Exam Present: soft. Absent: tenderness - Routine Extremities Exam Comments: Upon examination of the lower extremities: The limb lengths are equal and alignment is neutral. The surgical incisions are healthy. No erythema, induration, drainage, evidence of bleeding, or other signs of infection noted. Attempted movements of the right hip are painful. Thigh and calf are soft and nontender; Homans' sign is negative. No clinical signs of DVT noted. Posterior tibial pulse 2+, dorsalis pedis pulse 1+. Sensation to light touch is grossly intact. - Routine Skin Exam Present: intact - Routine Neurological Exam Present: alert, oriented X3, moving all extremities. Absent: motor deficit - Routine Psychiatric Exam Present: normal affect, cooperative - Urinary Catheter Management Coude Cath placed during this visit: no Urethral indwelling: No Progress Note: A&P (1) Closed right hip fracture Status: Acute (2) Chronic anemia Status: Chronic (3) COPD (chronic obstructive pulmonary disease) Problem details: End-stage disease Status: Chronic (4) CAD (coronary artery disease) Status: Chronic (5) CKD (chronic kidney disease) stage 3, GFR 30-59 ml/min Status: Chronic (6) Chronic hypoxemic respiratory failure Status: Chronic (7) HTN (hypertension) Status: Chronic Assessment and Plan for All Diagnoses:: I have reviewed the clinical findings and progress with the patient. I have changed his surgical dressings and the incisions look clean, dry, and healthy. No bleeding or soakage of the dressing noted. Sterile bordered gauze was applied over the incisions. Overall he is doing well from an orthopedic standpoint. He can be mobilized/transferred with a walker and the assistance of physical therapy, weightbearing as tolerated on the right side. Continue PT. Continue DVT prophylaxis for 6 weeks postop. Case management looking into discharge planning. Continue medical management as per Dr. Plascencia. Follow-up in the office in 2 weeks with check x-ray.
--- NOTE | 2021-01-30 12:27 | P.PN_ITS ---
[facility] Anesthesia Record Part II Discharge Time: 18:08 Destination: floor PACU nurse assessment reviewed?: Yes Patient Condition:: Good Anesthesia Complications:: None Swallowing reflex intact?: Yes Cyanosis?: No Blood Pressure: 123/59 Pulse Rate: 78 Temperature: 98.1 F Mental Status: Alert & Oriented Pain level:: 3 Nausea and/or vomitting:: None Intake, IV Amount: 2,000
[2021-01-30 15:39] LABS: Microscopic, Urine URINE MICROSCOPIC (MICROSCOPIC)
[2021-01-30 15:45] LABS: Appearance,Urine CLEAR (Clear); Bilirubin,Urine Negative (Negative); Blood, Urine TRACE-I (Negative); Color,Urine YELLOW (Yellow); Glucose,Urine (UA) Negative (Negative); Ketones,Urine TRACE (Negative); Leukocyte Esterase,Urine Negative (Negative); Nitrate,Urine Negative (Negative); Protein,Urine TRACE (Negative); Specific Gravity, Urine 1.025 (1.005-1.030); Urobilinogen,Urine 0.2 EU/dl (0.2)
[2021-01-30 15:59] LABS: Bacteria,Urine Trace /lpf; RBC,Urine Occasional #/hpf (0-3); Squamous Epithelial Cell,Urine Occasional #/hpf (0-5)
[2021-01-30 16:45] LABS: Basophils % 0.3 % (0.1-2.0); Eosinophils # 0.1 K/mm3 (0.0-0.4); Eosinophils % 0.8 % (0.1-12.0); Hematocrit 26.6 % (42.0-52.0); Hemoglobin 8.2 g/dL (14.1-18.0); Lymphocytes # 0.7 K/mm3 (0.7-4.5); Lymphocytes % 6.8 % (10-50); Mean Corpuscular HGB Conc 30.7 g/dL (31.8-35.4); Mean Corpuscular Hemoglobin 30.4 pg (27.0-31.2); Mean Corpuscular Volume 98.9 fl (80-94); Mean Platelet Volume 9.1 fl (7.4-10.4); Monocytes # 0.6 K/mm3 (0.1-1.0); Monocytes % 5.7 % (1.7-9.3); Neutrophils # 9.4 K/mm3 (1.8-7.8); Neutrophils % 86.4 % (37.0-80.0); Platelet Count 183 K/mm3 (142-424); Red Blood Count 2.69 M/mm3 (4.60-6.20); Red Cell Distribution Width 15.3 % (11.5-17.5); White Blood Count 10.8 K/mm3 (4.8-10.8)
[2021-01-30 16:47] LABS: MANUAL DIFFERENTIAL MANUAL DIFFERENTIAL (MANUAL DIFF)
[2021-01-30 16:51] LABS: Chloride 105 mmol/L (98-107)
[2021-01-30 16:52] LABS: Potassium 4.5 mmoL/L (3.5-5.1); Sodium 138 mmol/L (136-145)
[2021-01-30 16:55] LABS: Anion Gap 14.5 mEq/L (5-15); Blood Urea Nitrogen 27 mg/dl (9-20); Calcium 8.1 mg/dl (8.4-10.2); Carbon Dioxide 23 mmol/L (22.0-30.0); Creatinine Clearance Estimated 26 mL/min (50-200); Estimated Glomerular Filt Rate 32 ml/min (>60); GFR (African American) 39 ML/MIN (>60); Glucose 141 mg/dl (74-100)
--- NOTE | 2021-01-30 18:25 | PC.NURSE ---
T IS AOX4, HAS BEEN UP TO CHAIR FOR MOST OF THE DAY. PARTICIPATED WITH PT BUT TOLERATED POORLY. APPETITE HAS INCREASED THIS SHIFT, HAS NOT C/O PAIN THUS FAR EXCEPT WITH AMBULATION. [facility] CATH WAS INSERTED R/T URINARY RETENTION WITH BLADDER DISTENTION. UA SENT TO LAB. VITAL SIGNS HAVE BEEN STABLE THIS SHIFT. PT WAS NOTED TO BE ASLEEP IN CHAIR OFTEN THIS SHIFT. STILL REQUIRE 2 LNC FOR O2 SUPPORT.
[2021-01-30 19:08] LABS: Hypochromasia 1+; Lymphocytes % 10 % (10-50); Monocytes % 4 % (2-9); Neutrophils % 86 % (42-76); Platelet Estimate Normal; Total Cells Counted 100
[2021-01-31] VITALS: BP 132/55; PULSE 80; RESP 14; TEMP 37; O2SAT 97
--- NOTE | 2021-01-31 03:50 | PC.NURSE ---
Patient is A&O x4 during assessment; at approximately 0200 he was confused on the time of day. Patient has rested on and off this shift. Patient has had no acute changes this shift. Patient had complaints of pain x1 this RN's shift. Patient remains on 2LNC. Leung is draining adequate urine. Call light within reach, VSS, will continue to monitor.
[2021-01-31 04:00] VITALS: BP 122/47; PULSE 65; RESP 14; TEMP 36.8; O2SAT 98
--- NOTE | 2021-01-31 05:20 | HMH.ORTHPN ---
Subjective Date: 01/31/21 Time: 05:20 Principal diagnosis: Right hip fracture Interval history: Resting comfortably, no acute distress. He had a Leung anchored yesterday. He has been working with physical therapy, but would prefer to lie in bed. Per nursing report, he is more motivated to get out of bed when his is here. PN: Obj Ex Vital signs: Temp Pulse Resp BP Pulse Ox 98.2 F 65 14 122/47 L 98 01/31/21 04:00 01/31/21 04:00 01/31/21 04:00 01/31/21 04:00 01/31/21 04:00 - Constitutional no acute distress - Routine Respiratory Exam Absent: accessory muscle use, respiratory distress - Routine Cardiovascular Exam Present: RRR - Detailed Lower Extremity Exam Hip: Right normal inspection (Right lower extremity with surgical dressings clean, dry, intact. Distally neurovascularly intact.) - Urinary Catheter Management Coude Cath placed during this visit: no Urethral indwelling: No Progress Note: A&P (1) Closed right hip fracture Status: Acute (2) Chronic anemia Status: Chronic (3) COPD (chronic obstructive pulmonary disease) Problem details: End-stage disease Status: Chronic (4) CAD (coronary artery disease) Status: Chronic (5) CKD (chronic kidney disease) stage 3, GFR 30-59 ml/min Status: Chronic (6) Chronic hypoxemic respiratory failure Status: Chronic (7) HTN (hypertension) Status: Chronic Assessment and Plan for All Diagnoses:: 85-year-old male status post cephalomedullary nail fixation right intertrochanteric femur fracture by Dr. Blas. Continue PT/OT, DVT prophylaxis. Discontinue Leung as able. Follow-up in [address] Blas for wound check and x-rays.
[2021-01-31 05:36] VITALS: BMI 23.1
[2021-01-31 06:03] LABS: Chloride 108 mmol/L (98-107)
[2021-01-31 06:04] LABS: Potassium 3.8 mmoL/L (3.5-5.1); Sodium 137 mmol/L (136-145)
[2021-01-31 06:07] LABS: Anion Gap 8.8 mEq/L (5-15); Blood Urea Nitrogen 25 mg/dl (9-20); Calcium 7.5 mg/dl (8.4-10.2); Carbon Dioxide 24 mmol/L (22.0-30.0); Creatinine Clearance Estimated 32 mL/min (50-200); Estimated Glomerular Filt Rate 36 ml/min (>60); GFR (African American) 44 ML/MIN (>60); Glucose 112 mg/dl (74-100)
[2021-01-31 06:14] LABS: Eosinophils # 0.4 K/mm3 (0.0-0.4); Neutrophils # 6.5 K/mm3 (1.8-7.8)
[2021-01-31 06:29] LABS: Basophils % 0.4 % (0.1-2.0); Eosinophils % 3.9 % (0.1-12.0); Hematocrit 23.2 % (42.0-52.0); Lymphocytes # 1.4 K/mm3 (0.7-4.5); Lymphocytes % 15.4 % (10-50); Mean Corpuscular HGB Conc 30.1 g/dL (31.8-35.4); Mean Corpuscular Hemoglobin 30.3 pg (27.0-31.2); Mean Corpuscular Volume 100.8 fl (80-94); Mean Platelet Volume 8.4 fl (7.4-10.4); Monocytes # 0.6 K/mm3 (0.1-1.0); Monocytes % 6.5 % (1.7-9.3); Neutrophils % 73.8 % (37.0-80.0); Platelet Count 171 K/mm3 (142-424); Red Blood Count 2.31 M/mm3 (4.60-6.20); Red Cell Distribution Width 15.8 % (11.5-17.5); White Blood Count 8.9 K/mm3 (4.8-10.8)
--- NOTE | 2021-01-31 06:52 | PC.NURSE ---
Patient refused fluids.
[2021-01-31 08:00] VITALS: BP 133/72; PULSE 72; RESP 18; TEMP 36.7; O2SAT 94
--- NOTE | 2021-01-31 08:34 | HMH.ACPN2 ---
Internal Medicine - PN: Subj *Date: 01/31/21 *Time: 08:34 Interval history: Events of yesterday noted with dual blood pressure regimen given from and then from nursing staff inadvertently. That has been addressed, patient's blood pressure much better, continues to have a little bit of nighttime delirium which is extremely concerning to and daughter. We had a long discussion about this. Exam Vital signs and Labs for Last 24 Hours: Temp Pulse Resp BP Pulse Ox 98.0 F 72 18 133/72 94 L 01/31/21 08:00 01/31/21 08:00 01/31/21 08:00 01/31/21 08:00 01/31/21 08:00 Laboratory Results - last 24 hr 01/30/21 15:16: Urine Color Yellow, Urine Appearance Clear, Urine pH 6.0, Ur Specific [place] 1.025, Urine Protein Trace, Urine Glucose (UA) Negative, Urine Ketones Trace, Urine Blood Trace-i, Urine Nitrate Negative, Urine Bilirubin Negative, Urine Urobilinogen 0.2, Ur Leukocyte Esterase Negative, Urine RBC Occasional, Urine WBC None, Ur Squamous Epith Cells Occasional, Urine Bacteria Trace 01/30/21 16:16: WBC 10.8, RBC 2.69 L, Hgb 8.2 L, Hct 26.6 L, MCV 98.9 H, MCH 30.4, MCHC 30.7 L, RDW 15.3, Plt Count 183 D, MPV 9.1, Neut % (Auto) 86.4 H, Lymph % (Auto) 6.8 L, [place] % (Auto) 5.7, Eos % (Auto) 0.8, Baso % (Auto) 0.3, Neut # (Auto) 9.4 H, Lymph # (Auto) 0.7, [place] # (Auto) 0.6, Eos # (Auto) 0.1, Baso # (Auto) 0.0, Total Counted 100, Neutrophils % (Manual) 86 H, Lymphocytes % (Manual) 10, Monocytes % (Manual) 4, Platelet Estimate Normal, Hypochromasia 1+ 01/30/21 16:16: Sodium 138, Potassium 4.5, Chloride 105, Carbon Dioxide 23, Anion Gap 14.5, BUN 27 H, Creatinine 2.00 H, Estimated Creat Clear 26, Estimated GFR 32 L, Est GFR ( Amer) 39 L, Glucose 141 H, Calcium 8.1 L 01/31/21 05:39: WBC 8.9, RBC 2.31 L, Hgb 7.0 L, Hct 23.2 L, MCV 100.8 H, MCH 30.3, MCHC 30.1 L, RDW 15.8, Plt Count 171, MPV 8.4, Neut % (Auto) 73.8, Lymph % (Auto) 15.4, [place] % (Auto) 6.5, Eos % (Auto) 3.9, Baso % (Auto) 0.4, Neut # (Auto) 6.5, Lymph # (Auto) 1.4, [place] # (Auto) 0.6, Eos # (Auto) 0.4, Baso # (Auto) 0.0 01/31/21 05:39: Sodium 137, Potassium 3.8, Chloride 108 H, Carbon Dioxide 24, Anion Gap 8.8, BUN 25 H, Creatinine 1.80 H, Estimated Creat Clear 32, Estimated GFR 36 L, Est GFR ( Amer) 44 L, Glucose 112 H D, Calcium 7.5 L I & O for Last 24 hours: Intake & Output 01/28/21 01/29/21 01/30/21 01/31/21 11:59 11:59 11:59 11:59 Intake Total 240 / 240 1480 / 1480 1080 / 1080 3600 / 3600 Output Total 0 / 0 450 / 450 750 / 750 875 / 875 Balance 240 / 240 1030 / 1030 330 / 330 2725 / 2725 Weight 152 lb 5 oz 152 lb 4 oz 150 lb 1.6 oz 161 lb 4 oz Narrative: Patient is pleasant, responds to commands, oriented x2 today, confused about the date. Lungs have fairly good air movement for his baseline. Abdomen soft, no edema noted. Pain seems fairly well controlled. ENT exam clear, no JVD. Assessment and Plan (1) Closed right hip fracture Status: Acute Qualifiers: Encounter type: initial encounter Qualified Code(s): S72.001A - Fracture of unspecified part of neck of right femur, initial encounter for closed fracture Category: Medical Code(s): S72.001A - Fracture of unspecified part of neck of right femur, initial encounter for closed fracture (2) Chronic anemia Status: Chronic Category: Medical Code(s): D64.9 - Anemia, unspecified (3) COPD (chronic obstructive pulmonary disease) Problem details: End-stage disease Status: Chronic Qualifiers: COPD type: unspecified COPD Qualified Code(s): J44.9 - Chronic obstructive pulmonary disease, unspecified Category: Medical Code(s): J44.9 - Chronic obstructive pulmonary disease, unspecified (4) CAD (coronary artery disease) Status: Chronic Qualifiers: Coronary Disease-Associated Artery/Lesion type: [place] artery [place] vs. transplanted heart: [place] heart Associated angina: without angina Qualified Code(s): I25.10 - Atherosclerotic heart disease of [place]
[2021-01-31 15:44] VITALS: BP 165/73; PULSE 73; RESP 16; TEMP 36.8; O2SAT 97
[2021-02-01] VITALS (13 sets, daily range): BP systolic 130–179; BP diastolic 68–95; PULSE 63–83; RESP 15–21; TEMP 36.4–37.3; O2SAT 90–99; BMI 23.1
--- NOTE | 2021-02-01 03:17 | PC.NURSE ---
Patient is A&Ox3. He is confused on the time of day. Patient has appeared to have rested okay this shift with only one incidence of pain reported to this RN. He did not comprehend the difference in the lights being on or off, he didn't know what the difference was. has remained at bedside this shift and patient has seemed to be less agitated. No BM reported thus far in this RN's shift. Patient's right hip dressing is C/D/I. VSS, call light within reach, will continue to monitor.
--- NOTE | 2021-02-01 06:24 | HMH.ORTHPN ---
Subjective Date: 02/01/21 Time: 06:24 Principal diagnosis: Right hip fracture Interval history: He has been up to chair most the day yesterday with physical therapy. His is at bedside today, says he has been doing reasonably well. Leung still anchored. PN: Obj Ex Vital signs: Temp Pulse Resp BP Pulse Ox 98.8 F 67 18 130/70 92 L 02/01/21 04:00 02/01/21 04:00 02/01/21 04:00 02/01/21 04:00 02/01/21 04:00 - Constitutional no acute distress - Routine Respiratory Exam Absent: accessory muscle use, respiratory distress - Routine Cardiovascular Exam Present: RRR - Detailed Lower Extremity Exam Upper leg: Right: normal inspection (Surgical dressings clean, dry, intact. Distally neurovascularly intact.) - Urinary Catheter Management Coude Cath placed during this visit: no Urethral indwelling: No Progress Note: A&P (1) Closed right hip fracture Status: Acute Assessment and plan: 85-year-old male status post cephalomedullary nail fixation right femur fracture by Dr. Blas. Continue mobility as tolerated. DVT prophylaxis. Placement pending. DC Leung as able. (2) Chronic anemia Status: Chronic (3) COPD (chronic obstructive pulmonary disease) Problem details: End-stage disease Status: Chronic (4) CAD (coronary artery disease) Status: Chronic (5) CKD (chronic kidney disease) stage 3, GFR 30-59 ml/min Status: Chronic (6) Chronic hypoxemic respiratory failure Status: Chronic (7) HTN (hypertension) Status: Chronic
--- NOTE | 2021-02-01 08:39 | HMH.ACPN2 ---
Internal Medicine - PN: Subj *Date: 02/01/21 *Time: 08:39 Interval history: Patient is pleasant and talkative. Had a better night last night in regards to sleep according to his , is a little confused when he woke up this morning but this cleared a little better. Orthopedic note reviewed. Labs reviewed from yesterday. Exam Vital signs and Labs for Last 24 Hours: Temp Pulse Resp BP Pulse Ox 98.8 F 67 18 130/70 92 L 02/01/21 04:00 02/01/21 04:00 02/01/21 04:00 02/01/21 04:00 02/01/21 04:00 I & O for Last 24 hours: Intake & Output 01/29/21 01/30/21 01/31/21 02/01/21 11:59 11:59 11:59 11:59 Intake Total 1480 / 1480 1080 / 1080 3600 / 3600 240 / 240 Output Total 450 / 450 750 / 750 875 / 875 610 / 610 Balance 1030 / 1030 330 / 330 2725 / 2725 -370 / -370 Weight 152 lb 4 oz 150 lb 1.6 oz 161 lb 4 oz 161 lb 3 oz Narrative: Patient is alert, cardiopulmonary exam unchanged yesterday. Abdomen soft. Oropharynx dry but clear. Previously noted right eyelid drooping. Incision dry and clean. Extremities warm and well-perfused. Assessment and Plan (1) Closed right hip fracture Status: Acute Qualifiers: Encounter type: initial encounter Qualified Code(s): S72.001A - Fracture of unspecified part of neck of right femur, initial encounter for closed fracture Category: Medical Code(s): S72.001A - Fracture of unspecified part of neck of right femur, initial encounter for closed fracture (2) Chronic anemia Status: Chronic Category: Medical Code(s): D64.9 - Anemia, unspecified (3) COPD (chronic obstructive pulmonary disease) Problem details: End-stage disease Status: Chronic Qualifiers: COPD type: unspecified COPD Qualified Code(s): J44.9 - Chronic obstructive pulmonary disease, unspecified Category: Medical Code(s): J44.9 - Chronic obstructive pulmonary disease, unspecified (4) CAD (coronary artery disease) Status: Chronic Qualifiers: Coronary Disease-Associated Artery/Lesion type: [place] artery [place] vs. transplanted heart: [place] heart Associated angina: without angina Qualified Code(s): I25.10 - Atherosclerotic heart disease of [place] coronary artery without angina pectoris Category: Medical Code(s): I25.10 - Atherosclerotic heart disease of [place] coronary artery without angina pectoris (5) CKD (chronic kidney disease) stage 3, GFR 30-59 ml/min Status: Chronic Category: Medical Code(s): N18.30 - Chronic kidney disease, stage 3 unspecified (6) Chronic hypoxemic respiratory failure Status: Chronic Category: Medical Code(s): J96.11 - Chronic respiratory failure with hypoxia (7) HTN (hypertension) Status: Chronic Category: Medical Code(s): I10 - Essential (primary) hypertension - Assessment and plan all Dx Assessment and Plan for all problems:: Significant anemia exacerbated by GI bleeding. 1 unit of blood today given his hemoglobin of 7 yesterday. Check follow-up H&H and CBC tomorrow. Remains on track for discharge to rehab facility tomorrow once insurance pre-CERT done. Orthopedic status is stable. DVT prophylaxis is certainly a thorny issue and there is really not a good solution here. He has had significant bleeding even on aspirin only so for the time being he is on no anticoagulation therapy. Have instructed the nurses to replace his antithrombus compression leg devices. He is getting up and around. Remove his Leung today to help with this issue as well.
--- NOTE | 2021-02-01 15:45 | PC.NURSE ---
Type and cross match had to be redrawn, since it was . Pt has been alert to self and place. at bedside. No acute changes at this time. Denies pain/discomfort. Has been up to chair this shift. CB in reach. VSS
--- NOTE | 2021-02-01 20:26 | PC.NURSE ---
Dr. Plascencia ordered x 1 unit of held blood this am to be infused. This nurse called lab and asked to f/u on status of blood, spoke with Cary,she informed this RN the cross match was , stated she needed another order to type and cross match. This RN placed order and dave cross match when Cary arrived. Called back later after cross match to check status of blood and was told there was no order to transfuse the blood,(from Cary and Yuliet) this RN placed an order to transfuse the one unit of PRBC's at approx 1712. Called at approx 1920 to once again check status of blood and was once again told there was no order by Ezekiel, he then took verbal order for x one unit of blood. Ezekiel called at appox 2024 and stated the one unit of blood was rdy. This RN notified Abril Valderrama RN who is now caring for pt. Pt has been up to chair this shift with no c/o's. VSS. at bedside. Leung was removed this evening. CB in reach. Pt continues to be confused.
[2021-02-02] VITALS (7 sets, daily range): BP systolic 147–187; BP diastolic 64–94; PULSE 54–88; RESP 16–21; TEMP 36.8–37.1; O2SAT 95–97; BMI 23.3
[2021-02-02 03:18] LABS: Hemoglobin 8.1 g/dL (14.1-18.0)
[2021-02-02 03:21] LABS: Hematocrit 25.3 % (42.0-52.0)
--- NOTE | 2021-02-02 06:02 | PC.NURSE ---
Patient is alert to name, , and situation. He has been pleasant and cooperative. Patient has rested well this shift with no complaints of pain voiced to this RN. Patient's lung sounds are diminished. is concerned about patient's sputum being pink tinged in color, specimen cup was placed at bedside in attempts to collect. Patient does seem to have a wet cough intermittently. Right hip dsg is clean, dry and intact. VSS, call light within reach, will continue to monitor.
[2021-02-02 06:43] LABS: Basophils % 0.4 % (0.1-2.0); Eosinophils # 0.3 K/mm3 (0.0-0.4); Eosinophils % 3.5 % (0.1-12.0); Hematocrit 24.4 % (42.0-52.0); Hemoglobin 7.8 g/dL (14.1-18.0); Lymphocytes # 1.2 K/mm3 (0.7-4.5); Lymphocytes % 13.9 % (10-50); Mean Corpuscular Hemoglobin 29.7 pg (27.0-31.2); Mean Corpuscular Volume 92.8 fl (80-94); Mean Platelet Volume 8.3 fl (7.4-10.4); Monocytes # 0.9 K/mm3 (0.1-1.0); Monocytes % 9.8 % (1.7-9.3); Neutrophils # 6.3 K/mm3 (1.8-7.8); Neutrophils % 72.5 % (37.0-80.0); Platelet Count 201 K/mm3 (142-424); Red Blood Count 2.63 M/mm3 (4.60-6.20); Red Cell Distribution Width 17.2 % (11.5-17.5); White Blood Count 8.7 K/mm3 (4.8-10.8)
[2021-02-02 06:51] LABS: Chloride 110 mmol/L (98-107); Potassium 3.7 mmoL/L (3.5-5.1); Sodium 140 mmol/L (136-145)
[2021-02-02 06:54] LABS: Blood Urea Nitrogen 23 mg/dl (9-20); Creatinine Clearance Estimated 44 mL/min (50-200); Estimated Glomerular Filt Rate 53 ml/min (>60); GFR (African American) 64 ML/MIN (>60)
[2021-02-02 06:55] LABS: Anion Gap 9.7 mEq/L (5-15); Calcium 7.8 mg/dl (8.4-10.2); Carbon Dioxide 24 mmol/L (22.0-30.0); Glucose 116 mg/dl (74-100)
--- NOTE | 2021-02-02 08:46 | HMH.ACPN2 ---
Internal Medicine - PN: Subj *Date: 02/02/21 *Time: 08:46 Interval history: Patient did fairly well overnight, reports some agitation and minimal disorientation. Lungs have unchanged rhonchi with good air movement. Heart rate regular. Abdomen soft, extremities are warm and well-perfused. Hip scar exam per orthopedics. Exam Vital signs and Labs for Last 24 Hours: Temp Pulse Resp BP Pulse Ox 98.3 F 54 L 16 187/94 H 95 02/02/21 07:37 02/02/21 07:37 02/02/21 07:37 02/02/21 07:37 02/02/21 07:37 Laboratory Results - last 24 hr 02/01/21 14:05: Blood Type O Negative, Antibody Screen Negative, Crossmatch (AHG) See Detail 02/02/21 03:05: Hgb 8.1 L, Hct 25.3 L 02/02/21 06:25: WBC 8.7, RBC 2.63 L, Hgb 7.8 L, Hct 24.4 L, MCV 92.8, MCH 29.7, MCHC 32.0, RDW 17.2, Plt Count 201, MPV 8.3, Neut % (Auto) 72.5, Lymph % (Auto) 13.9, [place] % (Auto) 9.8 H, Eos % (Auto) 3.5, Baso % (Auto) 0.4, Neut # (Auto) 6.3, Lymph # (Auto) 1.2, [place] # (Auto) 0.9, Eos # (Auto) 0.3, Baso # (Auto) 0.0 02/02/21 06:25: Sodium 140, Potassium 3.7, Chloride 110 H, Carbon Dioxide 24, Anion Gap 9.7, BUN 23 H, Creatinine 1.30 H D, Estimated Creat Clear 44, Estimated GFR 53 L, Est GFR ( Amer) 64 D, Glucose 116 H, Calcium 7.8 L I & O for Last 24 hours: Intake & Output 01/30/21 01/31/21 02/01/21 02/02/21 11:59 11:59 11:59 11:59 Intake Total 1080 / 1080 3600 / 3600 480 / 480 730 / 730 Output Total 750 / 750 875 / 875 610 / 610 925 / 925 Balance 330 / 330 2725 / 2725 -130 / -130 -195 / -195 Weight 150 lb 1.6 oz 161 lb 4 oz 161 lb 3 oz 163 lb Assessment and Plan (1) Closed right hip fracture Status: Acute Qualifiers: Encounter type: initial encounter Qualified Code(s): S72.001A - Fracture of unspecified part of neck of right femur, initial encounter for closed fracture Category: Medical Code(s): S72.001A - Fracture of unspecified part of neck of right femur, initial encounter for closed fracture (2) Chronic anemia Status: Chronic Category: Medical Code(s): D64.9 - Anemia, unspecified (3) COPD (chronic obstructive pulmonary disease) Problem details: End-stage disease Status: Chronic Qualifiers: COPD type: unspecified COPD Qualified Code(s): J44.9 - Chronic obstructive pulmonary disease, unspecified Category: Medical Code(s): J44.9 - Chronic obstructive pulmonary disease, unspecified (4) CAD (coronary artery disease) Status: Chronic Qualifiers: Coronary Disease-Associated Artery/Lesion type: [place] artery [place] vs. transplanted heart: [place] heart Associated angina: without angina Qualified Code(s): I25.10 - Atherosclerotic heart disease of [place] coronary artery without angina pectoris Category: Medical Code(s): I25.10 - Atherosclerotic heart disease of [place] coronary artery without angina pectoris (5) CKD (chronic kidney disease) stage 3, GFR 30-59 ml/min Status: Chronic Category: Medical Code(s): N18.30 - Chronic kidney disease, stage 3 unspecified (6) Chronic hypoxemic respiratory failure Status: Chronic Category: Medical Code(s): J96.11 - Chronic respiratory failure with hypoxia (7) HTN (hypertension) Status: Chronic Category: Medical Code(s): I10 - Essential (primary) hypertension - Assessment and plan all Dx Assessment and Plan for all problems:: Continue to hold blood thinners and aspirin because of his severe history of GI bleeding and anemia. Mechanical anticlot prevention-certainly high risk for DVT but in between the proverbial rock and a hard place given his bleeding issues. Probable transfer to long-term care today if insurance precertification is accomplished.
[2021-02-02 11:15] LABS: Coronavirus 19, PCR Not Detected (NotDetected); Influenza A, PCR Not Detected (NotDetected); Influenza B, PCR Not Detected (NotDetected)
--- NOTE | 2021-02-02 12:02 | HMH.DCSUM ---
General - General Admission date:: 01/27/21 Discharge date: 02/02/21 HPI HPI: Parish is an 85-year-old male with multiple comorbidities (see history below). He was brought in by an ambulance to the ER after sustaining a fall at home. is with patient at bedside, she states he just fell over. He did not trip or stumble. No other trauma sustained. Patient had immediate onset of right hip pain. On evaluation in the ER, found to have closed nondisplaced femoral neck fracture. No other trauma, head trauma, signs of bleeding. Patient otherwise at baseline. Denies chest pain, shortness of breath beyond baseline, nausea or vomiting. No confusion. Only complaining of right hip pain. Hospital Course Hospital Course: Patient was admitted to hospital, hip repair was accomplished well without difficulties. Patient did well during the procedure. Postoperatively patient was evaluated by physical therapy who recommended at least short-term skilled care rehab given his significant balance issues, significant weakness and his need for stabilization and ability to transfer more safely. Patient's family agreed with this recommendation and he was able to be approved for [place] [facility] [place] Of note, patient has struggled with anemia over the past several months related to nutritional issues as well as GI blood loss. Postoperatively he did require 1 unit of packed cells and his hemoglobin has been stable around 8 g. Because of his severe ulcer disease and intolerance to even aspirin we did not initiate medical DVT prophylaxis and instead are doing compression boots in the hospital and at the long term he will need to wear HATTIE hose up to the knee on a regular basis. He will be transferred to [place] today with the following recommendations: 1. PT/OT evaluation. 2. CBC/BMP in 2 days. 3. We will follow him on a regular long term rounds. 4. He did have some acute delirium in the hospital, low-dose Resporal was prescribed, this will need to be continued 3 times daily as needed. 5. Once skilled rehab is over he will need to resume his hospice care for his end-stage lung disease. Objective Vital signs: Temp Pulse Resp BP Pulse Ox 98.3 F 54 L 18 187/94 H 95 02/02/21 07:37 02/02/21 08:00 02/02/21 11:57 02/02/21 07:37 02/02/21 08:00 no acute distress, thin, chronically ill appearing - *Routine HEENT Exam Head: Present: normocephalic Eye: Present: EOMI, PERRL ENT: Present: mucous membranes moist - *Routine Neck Exam Present: supple - *Routine Respiratory Exam Present: rhonchi - *Routine Cardiovascular Exam Present: RRR - *Routine Abdominal Exam Present: soft, normoactive bowel sounds. Absent: tenderness - *Routine Extremities Exam Absent: cyanosis, clubbing, edema Comments: Healing surgical wound - *Routine Skin Exam Present: warm. Absent: rash - Detailed Eye Exam Eyelids: Bilateral normal inspection Results Labs on day of discharge: Labs from last 24 hours 02/02/21 02/02/21 02/02/21 11:10 06:25 06:25 WBC 8.7 RBC 2.63 L Hgb 7.8 L Hct 24.4 L MCV 92.8 MCH 29.7 MCHC 32.0 RDW 17.2 Plt Count 201 MPV 8.3 Neut % (Auto) 72.5 Lymph % (Auto) 13.9 [place] % (Auto) 9.8 H Eos % (Auto) 3.5 Baso % (Auto) 0.4 Neut # (Auto) 6.3 Lymph # (Auto) 1.2 [place] # (Auto) 0.9 Eos # (Auto) 0.3 Baso # (Auto) 0.0 Sodium 140 Potassium 3.7 Chloride 110 H Carbon Dioxide 24 Anion Gap 9.7 BUN 23 H Creatinine 1.30 H D Estimated Creat Clear 44 Estimated GFR 53 L Est GFR ( Amer) 64 D Glucose 116 H Calcium 7.8 L SARS-CoV-2 (PCR) Not detected Influenza A Untype (PCR) Not detected Influenza Type B (PCR) Not detected Blood Type Antibody Screen Crossmatch (AHG) 02/02/21 02/01/21 03:05 14:05 WBC RBC Hgb 8.1 L Hct 25.3
== END 2021-02-02 14:10 ==
LOC: ER 12:34 → 2ND 13:56
PROVIDERS: Internal Medicine Adolescent Medicine; Orthopaedic Surgery; Admitting Provider Internal Medicine Adolescent Medicine; Emergency Provider Emergency Medicine; Visit Provider Internal Medicine Adolescent Medicine
DX: S72.141A Displaced intertrochanteric fracture of right femur, initial encounter for closed fracture (principal); I25.10 Atherosclerotic heart disease of native coronary artery without angina pectoris; D64.9 Anemia, unspecified; I48.91 Unspecified atrial fibrillation; I12.9 Hypertensive chronic kidney disease with stage 1 through stage 4 chronic kidney disease, or unspecified chronic kidney disease; Z20.822 Contact with and (suspected) exposure to COVID-19; Z79.899 Other long term (current) drug therapy; Z88.2 Allergy status to sulfonamides; Z88.0 Allergy status to penicillin; N18.30 Chronic kidney disease, stage 3 unspecified; J96.11 Chronic respiratory failure with hypoxia; W01.0XXA Fall on same level from slipping, tripping and stumbling without subsequent striking against object, initial encounter; Z91.81 History of falling; Y92.019 Unspecified place in single-family (private) house as the place of occurrence of the external cause; I25.2 Old myocardial infarction; J44.9 Chronic obstructive pulmonary disease, unspecified; Z95.1 Presence of aortocoronary bypass graft
CPT/HCPCS: 27245; 36415; 71045; 73502; 76000; 80048; 80053; 81001; 85007; 85014; 85018; 85025; 86850; 93005; 94640; 94760; 96374; 96375; 96376; 97110; 97161; 97165; 97530; 99284; C1713; C1769; C1776; C9803; G0378; J2405; P9016; U0003; U0005

== ENCOUNTER → 2021-02-10 09:14 | Outpatient (CLI) | payer MEDICARE, SELFPAY ==
--- NOTE | 2021-02-10 09:18 | XR_ITS ---
PROCEDURE: XR HIP RT 2-3V W/PELVIS CLINICAL INDICATION: sp RT gamma nail, sx 01/28/21 COMPARISON: CR XR HIP RT 2-3V W/PELVIS from 01/27/2021 FINDINGS: S/p ORIF of right intertrochanteric fracture with gamma nail short intramedullary jhony. There is good alignment. Small displaced fragment is present along the lesser trochanter. AP view of the pelvis also shows a left gamma nail in place. Aortoiliac stent graft is present with diffuse vascular calcifications noted. IMPRESSION: Status post ORIF right intertrochanteric fracture with good alignment Dictated by: Michoacano De León MD 02/10/2021 18:14 Michoacano De León MD in [place] 02/10/2021 18:14
== END ==
PROVIDERS: PCP Internal Medicine Adolescent Medicine; Visit Provider Orthopaedic Surgery
DX: Z09 Encounter for follow-up examination after completed treatment for conditions other than malignant neoplasm (principal); S72.001D Fracture of unspecified part of neck of right femur, subsequent encounter for closed fracture with routine healing
CPT/HCPCS: 73502

== ENCOUNTER → 2021-03-18 11:53 | Outpatient (CLI) | payer MEDICARE, SELFPAY ==
--- NOTE | 2021-03-18 11:58 | XR_ITS ---
PROCEDURE: XR HIP RT 2-3V W/PELVIS CLINICAL INDICATION: RT gamma nail, sx 01/28/21 COMPARISON: CR XR HIP RT 2-3V W/PELVIS from 02/10/2021 FINDINGS: Status post ORIF right intertrochanteric fracture with gamma nail and short intramedullary jhony. Fracture line is less apparent. No obvious orthopedic complications. There has been prior ORIF of the left hip. Prior aortoiliac stent grafts. Generalized vascular calcification. IMPRESSION: S/p ORIF right intertrochanteric fracture with good alignment Dictated by: Michoacano De León MD 03/18/2021 14:01 Michoacano De León MD in [place] 03/18/2021 14:01
== END ==
PROVIDERS: PCP Internal Medicine Adolescent Medicine; Visit Provider Orthopaedic Surgery
DX: Z09 Encounter for follow-up examination after completed treatment for conditions other than malignant neoplasm (principal); M25.551 Pain in right hip
CPT/HCPCS: 73502

== ENCOUNTER → 2021-04-16 12:47 | Outpatient (CLI) | payer MEDICARE, SELFPAY ==
--- NOTE | 2021-04-16 12:54 | XR_ITS ---
FINAL REPORT CLINICAL HISTORY: sp RT gamma nail FINDINGS: RIGHT HIP Two views including an AP pelvis were obtained. There is an intramedullary jhony and compression screw securing an intratrochanteric fracture of the right femur. The intertrochanteric fracture line remains partially visible. There is a side plate and screws securing the proximal left femur. An abdominal aortic endograft is partially visualized. IMPRESSION: Postoperative changes as described. Reviewed, Interpreted and Dictated by Ken Givens MD Transcribed by Michela Fine Authenticated by Ken Givens MD on 04/16/2021 01:54:38 PM [facility][1]
== END ==
PROVIDERS: PCP Orthopaedic Surgery; Visit Provider Internal Medicine Adolescent Medicine
DX: Z09 Encounter for follow-up examination after completed treatment for conditions other than malignant neoplasm (principal); M25.551 Pain in right hip
CPT/HCPCS: 73502

== ENCOUNTER → 2021-05-27 08:44 | Outpatient (CLI) | payer MEDICARE, SELFPAY ==
--- NOTE | 2021-05-27 08:48 | XR_ITS ---
FINAL REPORT CLINICAL HISTORY: osteoarthritis FINDINGS: 4 views of the left knee were obtained. There is no acute fracture or dislocation. The bones are osteopenic. There is mild degenerative change. Mild vascular calcification is present. IMPRESSION: Mild degenerative change. Reviewed, Interpreted and Dictated by Regino Sylvester III, MD Transcribed by Tripp Carlton Authenticated by Regino Sylvester III, MD on 05/27/2021 10:39:[address] [facility]
--- NOTE | 2021-05-27 08:48 | XR_ITS ---
FINAL REPORT CLINICAL HISTORY: osteoarthritis rt knee FINDINGS: 4 views of the right knee were obtained. There is no acute fracture or dislocation. The bones are osteopenic. There is mild degenerative change. Mild vascular calcification is present. There is postoperative change in the medial lower leg. IMPRESSION: Mild degenerative change. Reviewed, Interpreted and Dictated by Regino Sylvester III, MD Transcribed by Tripp Carlton Authenticated by Regino Sylvester III, MD on 05/27/2021 10:39:06 AM [facility]
== END ==
PROVIDERS: PCP Internal Medicine Adolescent Medicine; Visit Provider Orthopaedic Surgery
DX: M17.11 Unilateral primary osteoarthritis, right knee; M25.561 Pain in right knee; M25.562 Pain in left knee
CPT/HCPCS: 73564

== ENCOUNTER → 2021-06-03 11:07 | Outpatient (CLI) | payer MEDICARE, SELFPAY ==
--- NOTE | 2021-06-03 11:07 | MR_ITS ---
FINAL REPORT CLINICAL HISTORY: back pain, UNABLE TO WALK, RIGHT LEG WEAKNESS/NUMBNESS. SYMPTOMS SINCE JANUARY FINDINGS: Multiplanar MR imaging of the lumbar spine was performed without contrast. On the sagittal T2-weighted images, there is abnormal decreased signal throughout the lumbar discs. There is heterogeneous signal in the L5-S1 disc, probably degenerative. There is mild loss of vertebral body height of the L5 vertebral body. There is no bone marrow edema. This is likely chronic. The vertebral alignment is normal. L1-2: There is a mild diffuse disc bulge. There is mild bilateral neural foraminal narrowing. L2-3: There is a mild diffuse disc bulge. There is mild bilateral neural foraminal narrowing. L3-4: There is a mild diffuse disc bulge. There is mild bilateral neural foraminal narrowing. L4-5: There is a mild diffuse disc bulge. There is mild bilateral neural foraminal narrowing. L5-S1: There is a mild diffuse disc bulge. There is mild bilateral neural foraminal narrowing. IMPRESSION: 1. Mild diffuse disc bulges and mild bilateral neural foraminal narrowing at multiple levels. 2. Heterogeneous signal in the L5-S1 disc is probably degenerative. 3. Mild loss of disc space height in the L5 vertebral body is likely chronic. Reviewed, Interpreted and Dictated by Ken Givens MD Transcribed by FLASH Herr Authenticated by Ken Givens MD on 06/03/2021 01:13:07 PM [facility]
== END ==
PROVIDERS: PCP Internal Medicine Adolescent Medicine; Visit Provider Orthopaedic Surgery
DX: M54.50 Low back pain, unspecified (principal)
CPT/HCPCS: 72148; 76376

== ENCOUNTER → 2021-06-18 14:00 | Outpatient (POV) | payer MEDICARE, SELFPAY ==
[2021-06-18 14:11] VITALS: BP 157/82; PULSE 60; RESP 20; TEMP 36.2; O2SAT 97; BMI 29.9
--- NOTE | 2021-06-18 16:31 | HMH.PMCON ---
Assessment and Plan (1) Weakness of both lower extremities Status: Acute Category: Medical Code(s): R29.898 - Other symptoms and signs involving the musculoskeletal system - Assessment and plan all Dx Assessment and Plan for all problems:: Patient presents today as a new patient. Patient presents with bilateral lower extremity weaknesses that originates below his kneecaps. I discussed with the patient in detail that he does have some degenerative disc changes on his low back that might be causing his lower extremity weaknesses. However, the presentation of pinched nerve typically starts around the low back and radiates to his lower extremities. Because he is having weakness starting under his kneecaps, this weakness may not be due to to the degenerative disc changes on his low back. I don't think he will get any benefit from injective therapy. I recommended the patient see a neurologist possibly get an EMG testing done. We have referred the patient to a neurologist. Patient has been instructed to contact the clinic with any concerns before the next appointment. Dr. Maldonado has reviewed this note and agrees with this plan of care. This note was dictated using voice recognition software and make contain errors or omissions. HPI - Data of Consult Patient: new to practice Consult date: 06/18/21 Requesting Physician: FLASH Trotter - Consult Narrative Reason for consult: Weakness to bilateral lower extremities History of present illness: Mr. Lugo is a 86 year old male who presents today as a new patient. Patient is referred by Dr. Blas. Thank you for the referral Patient presents today with bilateral lower extremity weakness. Patient states he fell around December or January where he ended up getting a hip surgery by Dr. Blas. Patient states that he was getting better with walking then. Then about a month ago, he started to notice that he is having weakness as on his lower legs. Incidentally, patient fell again 2 weeks ago. Patient states that Dr. Blas has done several exams and tests that were all negative, so he was referred to us for possible injective therapy. Patient states that he had injective therapy in the past that was done in [place]. He also had a rhizotomy that was done there as well. Today, patient presents with no low back pain that radiates to bilateral extremities. He states that his only issue is his bilateral lower extremity weaknesses that starts below his kneecaps and goes down to his feet. Because of this he is unable to walk farther than a few steps. He denies any loss of bowel and bladder functions. He reports his pain today as 1 out of 10. CC: FLASH Trotter [facility] History Medical History: Reports:: Arrhythmia, Atherosclerotic Heart Disease, Atrial Fibrillation, Chronic Obstructive Pulmonary Disease (COPD), Coronary Artery Disease, Hyperlipidemia, Hypertension, Myocardial Infarction Denies:: Cancer, Diabetes Mellitus Type 1, Diabetes Mellitus Type 2, MRSA, Seizures *Have you ever received a pneumonia vaccine?: No *Have you received a flu vaccine this season?: No Other Medical History: Reports: Anemia, Arthritis Laterality Cases: Left: Arthroscopy Hip, Right: Total Hip Replacement Other Surgeries: Yes: CABG, Cardiac Catheterization, Cardiac Surgery, Open Heart Surgery Amputation: No Fractures: Yes - *Social History Smoking Status: Former smoker Tobacco Type: cigarettes # Packs/Day (cigarettes): 1 #Yrs smoked (if former smoker): 60 Alcohol Intake: never Substance Use Type: denies use *Occupational Status:: retired Housing: house Household Members: spouse *Travel in the last 8 weeks: None Family Hx:: Unable to obtain Review of Systems - Review of Systems General: No recent weight changes, no fever, no sleep disturbances Respiratory: No cough, no shortness of air, no recurring pulmonary infections Cardiovascular/peripheral vascular: No chest pain, no palpitations, no edema, no
== END ==
PROVIDERS: Visit Provider Student in an Organized Health Care Education/Training Program
DX: R29.898 Other symptoms and signs involving the musculoskeletal system (principal)
CPT/HCPCS: 99202; G0463

== ENCOUNTER → 2021-07-08 12:52 | Outpatient (CLI) | payer MEDICARE, SELFPAY ==
--- NOTE | 2021-07-08 12:56 | XR_ITS ---
FINAL REPORT CLINICAL HISTORY: hip fracture COMPARISON: April 16, 2021 FINDINGS: RIGHT HIP 3 views were obtained. There is no acute fracture. There are mild degenerative changes. Postoperative changes are again seen in the proximal right femur. Postoperative changes are also noted in the abdomen, pelvis, and left hip. There are mild vascular calcifications. IMPRESSION: Degenerative and postoperative changes as above. Reviewed, Interpreted and Dictated by Regino Sylvester III, MD Transcribed by Lorelei Smiley Authenticated by Regino Sylvester III, MD on 07/08/2021 01:50:[address] [facility]
== END ==
PROVIDERS: PCP Internal Medicine Adolescent Medicine; Visit Provider Orthopaedic Surgery
DX: S72.001A Fracture of unspecified part of neck of right femur, initial encounter for closed fracture (principal)
CPT/HCPCS: 73502

== ENCOUNTER → 2021-07-09 12:49 | Outpatient (POV) | payer MEDICARE, SELFPAY ==
[2021-07-09 12:59] VITALS: BP 149/77; PULSE 63; RESP 18; TEMP 36.8; O2SAT 97; BMI 18.2
--- NOTE | 2021-07-09 16:56 | HMH.PAINSOAP ---
[facility] Pain Management SOAP Note Subjective:: Patient is a pleasant 86-year-old male who presents today for follow-up. Patient has a history of hip surgery in January 2021 due to a fall. When I last saw this patient, he was referred to us by Dr. Blas because he continued to have bilateral lower extremity weakness even after surgery and rehab. I discussed with the patient at that time that his weakness is below his bilateral knee and I do not think that a lumbar epidural steroid injection would help this weakness. Patient has also had steroid injections into his knees with minimal relief of symptoms. Then, I referred the patient to neurology for possible EMG. Today, patient is here because the patient's discussed with Ortho that the patient has been having worsening bowel incontinence. Ortho wanted us to take a second look. When I talk with the patient today, patient's says that he has been having bowel incontinence around the time of his hip surgery. His latest MRI in May does not mention any cauda equina syndrome. So far, patient has seen neurology who ordered a nerve conduction study and a knee MRI. They are scheduled to follow-up with the neurologist after the nerve conduction study. Neurologist also referred the patient for home therapy. Review of Systems: General: No recent weight changes, no fever, no sleep disturbances Respiratory: No cough, no shortness of air, no recurring pulmonary infections Cardiovascular/peripheral vascular: No chest pain, no palpitations, no edema, no shortness of breath Gastrointestinal: No new onset incontinence, normal bowel movements reported Genitourinary: No new onset incontinence Musculoskeletal: Bilateral lower extremity weakness Psychiatric: [Normal mood/affect] Neurological: [Denies weakness in extremities], [denies balance issues] Objective:: Physical Exam: General: Alert and oriented x3, no acute distress, pleasant and cooperative, [on room air] Lungs: Respirations even and unlabored, symmetrical chest expansion Eyes: PERRL Musculoskeletal: Limited range of motion of bilateral knees secondary to pain. Eron Lower extremity str 4/5. Neurological: Speech clear, no gross sensory deficit Assessment:: Weakness of bilateral lower extremities Plan:: Patient has been distraught in the last couple of months because he has been having trouble moving around. He says that he was moving a lot better before he fell in January. He feels like he is not the same since then. I have discussed with the patient today that a good first steps would be to wait for the results of the knee MRI and to go through the nerve conduction study. I do think the patient would benefit significantly from physical therapy. This has been ordered by neurologist. I discussed with Felisha Canchola PA-C in regards to the patient. They have referred the patient to Dr. Landis for a second opinion. Patient has been instructed to contact the clinic with any concerns before the next appointment. Dr. Maldonado has reviewed this note and agrees with this plan of care. This note was dictated using voice recognition software and make contain errors or omissions. [facility] History Medical History: Reports:: Arrhythmia, Asthma, Atherosclerotic Heart Disease, Atrial Fibrillation, BPH, Chronic Obstructive Pulmonary Disease (COPD), Coronary Artery Disease, Home Oxygen, Hyperlipidemia, Hypertension, Myocardial Infarction Denies:: Cancer, Diabetes Mellitus Type 1, Diabetes Mellitus Type 2, MRSA, Seizures *Have you ever received a pneumonia vaccine?: No *Have you received a flu vaccine this season?: No Other Medical History: Reports: Anemia, Arthritis Laterality Cases: Left: Arthroscopy Hip, Bilateral: Total Hip Replacement Other Surgeries: Yes: CABG, Cardiac Catheterization, Cardiac Surgery, Coronary Stent, Open Heart Surgery Amputation: No Fractures: Yes - *Social History Smoking Status: Former smoker Tobacco Type: cigarettes #
== END ==
PROVIDERS: Visit Provider Student in an Organized Health Care Education/Training Program
DX: R53.1 Weakness (principal)
CPT/HCPCS: 99212; G0463

== ENCOUNTER → 2021-07-10 12:11 | Outpatient (CLI) | payer MEDICARE, SELFPAY ==
--- NOTE | 2021-07-10 12:11 | MR_ITS ---
FINAL REPORT CLINICAL HISTORY: rt knee pain, unable to bear weight. swelling and pain all over FINDINGS: Multiplanar MR imaging of the right knee was performed without contrast. There is mild irregularity of the posterior horn of the medial meniscus worrisome for a small tear. The lateral meniscus is intact. The anterior and posterior cruciate ligaments are intact. The medial collateral ligament and lateral ligamentous complex are intact. The patellar and quadriceps tendons are intact. There is no evidence of fracture. There is linear abnormal signal in the distal femur favoring postoperative change. No focal abnormality is identified of the articular cartilage. A small joint effusion is seen. The musculature is intact. There is a small popliteal cyst. IMPRESSION: Mild irregularity of the posterior horn of the medial meniscus worrisome for a small tear. Small joint effusion and small popliteal cyst. Reviewed, Interpreted and Dictated by Regino Sylvester III, MD Transcribed by Tripp Carlton Authenticated by Regino Sylvester III, MD on 07/10/2021 03:33:[address] [facility]
== END ==
PROVIDERS: PCP Internal Medicine Adolescent Medicine; Visit Provider Nurse Practitioner Family
DX: G89.29 Other chronic pain (principal); M25.561 Pain in right knee; R20.8 Other disturbances of skin sensation; R26.9 Unspecified abnormalities of gait and mobility
CPT/HCPCS: 73721

== ENCOUNTER 2021-08-13 16:37 | Emergency (ER) | payer MEDICARE, SELFPAY ==
[2021-08-13 16:39] VITALS: BP 132/64; PULSE 55; RESP 18; TEMP 36.6; O2SAT 94; BMI 19.5
--- NOTE | 2021-08-13 16:43 | PC.NURSE ---
KORINA FELIPE at BS; ERI Blackwood at BS
--- NOTE | 2021-08-13 16:47 | CT_ITS ---
PROCEDURE INFORMATION: Exam: CT Lumbar Spine Without Contrast Exam date and time: 08/13/2021 4:56 PM Age: 86 years old Clinical indication: Injury or trauma; Fall; Blunt trauma (contusions or hematomas); Additional info: Fall, tenderness to palpation to midline lumbar TECHNIQUE: Imaging protocol: Computed tomography images of the lumbar spine without contrast. Radiation optimization: All CT scans at this facility use at least one of these dose optimization techniques: automated exposure control; mA and/or kV adjustment per patient size (includes targeted exams where dose is matched to clinical indication); or iterative reconstruction. COMPARISON: 1. MR LUMBAR SPINE WO CON 06/03/2021 11: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 The exam is interpreted in conjunction with a CT thoracic spine which demonstrates 12 rib-bearing vertebral bodies. There are 6 nds-dxn-xendyla lumbar type vertebral bodies. Diffuse osseous demineralization. Mild exaggeration of the lumbar lordosis. Acute fracture of ossified anterior longitudinal ligament at the L1-L2 level. An acute, mildly distracted fracture through the L1 vertebral body, for example seen on coronal image 43 of series 7. The posterior elements appear intact. No significant disc height loss. There is prominent prevertebral spondylosis at L2-L3. No severe central spinal canal stenoses. Sacrum/coccyx: The sacroiliac joints demonstrate degenerative changes with vacuum phenomenon. Stomach and bowel: There is colonic diverticulosis. Intraperitoneal space: Calcified granulomata in the spleen. 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 An aorto bi-iliac stent graft is present. Soft tissues: Unremarkable. IMPRESSION: 1. There are 6 izw-zgb-rkjleit lumbar type vertebral bodies. 2. Acute fractures of ossified ligament at L1-L2 with mildly distracted fracture of the L1 vertebral body.
--- NOTE | 2021-08-13 16:49 | CT_ITS ---
PROCEDURE INFORMATION: Exam: CT Thoracic Spine Without Contrast Exam date and time: 08/13/2021 4:56 PM Age: 86 years old Clinical indication: Injury or trauma; Fall; Blunt trauma (contusions or hematomas); Additional info: Fall pain in thoracic spine TECHNIQUE: Imaging protocol: Computed tomography images of the thoracic spine without contrast. Radiation optimization: All CT scans at this facility use at least one of these dose optimization techniques: automated exposure control; mA and/or kV adjustment per patient size (includes targeted exams where dose is matched to clinical indication); or iterative reconstruction. COMPARISON: MR LUMBAR SPINE WO CON 06/03/2021 11:33 AM FINDINGS: Vertebrae: The thoracic spine demonstrates bridging anterior syndesmophytes. There is diffuse osseous demineralization. Exaggeration of the thoracic kyphosis. There are chronic appearing T7, T8, T9 and T10 vertebral compression deformities without osseous retropulsion. An acute L1 fracture is reported separately. Discs/Spinal canal/Neural foramina: No severe spinal canal stenosis. Other bones/joints: Prior median sternotomy. There are chronic bilateral rib fractures. Soft tissues: There are calcified granulomata. Lymph nodes: There are calcified mediastinal lymph nodes. Lungs: The lungs demonstrate areas of parenchymal scarring, some with bronchiectasis. Trace bilateral pleural effusions. Biapical pleural thickening. Heart: The mediastinum demonstrates post CABG changes. Znkl-uj-xvihbrqz cardiomegaly. Mediastinum: A hiatal hernia of small to moderate size. IMPRESSION: No acute thoracic spine fracture seen. An acute L1 fracture is reported separately.
--- NOTE | 2021-08-13 16:50 | XR_ITS ---
PROCEDURE INFORMATION: Exam: XR Left Hip Exam date and time: 08/13/2021 5:01 PM Age: 86 years old Clinical indication: Injury or trauma; Fall; Blunt trauma (contusions or hematomas); Prior surgery; Surgery date: 6+ months; Surgery type: Bilateral hip surgeries. ; Patient HX: Patient fell 2 days ago, states pain in low back, not in either hip. ; Additional info: Patient fell injuring both hips TECHNIQUE: Imaging protocol: XR Left hip. Views: 2 or 3 views hip with pelvis when performed. COMPARISON: CT ABDOMEN PELVIS W CON 08/04/2020 2:31 PM FINDINGS: Tubes, catheters and devices: Lower extent of an aorto biiliac stent graft is visualized. Bones/joints: Diffuse osseous demineralization. No acute fracture or dislocation seen. Prior surgical fixation of both hips. The hardware appears intact and in place. Soft tissues: Unremarkable. Vasculature: There are vascular calcifications. IMPRESSION: No acute fracture seen.
--- NOTE | 2021-08-13 16:50 | XR_ITS ---
PROCEDURE INFORMATION: Exam: XR Right Hip Exam date and time: 08/13/2021 5:02 PM Age: 86 years old Clinical indication: Injury or trauma; Fall; Blunt trauma (contusions or hematomas); Prior surgery; Surgery date: 6+ months; Surgery type: Bilateral hip surgeries. ; Patient HX: Patient states he fell 2 days ago, all pain is in his low back. No hip pain. ; Additional info: Patient fell injuring both hips TECHNIQUE: Imaging protocol: XR Right hip. Views: 2 or 3 views hip with pelvis when performed. COMPARISON: CR XR HIP RT 2-3V W/PELVIS 07/08/2021 1:03 PM FINDINGS: Tubes, catheters and devices: The lower extent of an aorto bi-iliac stent graft is visualized. Bones/joints: No acute fracture seen. No dislocation. Prior surgical fixation of both hips. The hardware appears intact and in place. Diffuse osseous demineralization. There is hip enthesopathy. Soft tissues: Unremarkable. Vasculature: There are vascular calcifications. IMPRESSION: No acute fracture seen.
--- NOTE | 2021-08-13 16:53 | PC.NURSE ---
patient to radiology by wheelchair with field service poultry technician
--- NOTE | 2021-08-13 17:19 | PC.NURSE ---
ERI Blackwood at
--- NOTE | 2021-08-13 18:05 | HMH.EDGENADL ---
ED Disposition Clinical Impression: L1 vertebral fracture Disposition: Home, Self-Care Condition on Discharge: Good Instructions: DI for Low Back Pain Prescriptions: methocarbamoL [Methocarbamol] 1,000 mg PO BIDP PRN #20 tab PRN Reason: Moderate To Severe Pain Transmission Status: Received by [facility] Referrals: Ziggy Plascencia MD [Primary Care Provider] - - Critical Care Critical Care Time: No Attestation: On 08/13/21, the high probability of a clinically significant, sudden or life threatening deterioration of the following system(s) required my full and direct attention, intervention and personal management. The time I documented below is in addition to time spent performing reported procedures but includes the following listed in this critical care notation. Medical Decision Making - Medical Records Medical records reviewed: Yes: I reviewed the patient's medical records. - Aamdeo Inquiry Pt receiving controlled substance: Yes Amadeo was queried for this patient: Yes Risks and benefits of using a controlled substance: were discussed with pt by me Vital Signs: 08/13/21 16:39 08/13/21 18:32 Temperature 97.8 F 98 F Temperature Source Oral Oral Pulse Rate 78 Pulse Rate [Radial] 55 L Respiratory Rate 18 16 Blood Pressure 123/74 Blood Pressure [Right Arm] 132/64 Blood Pressure Mean [Right Arm] 86 Blood Pressure Position Sitting Blood Pressure Position [Right Arm] Sitting 02 Sat by Pulse Oximetry 94 L Oxygen Delivery Method Room Air Room Air - Lab Data Lab results reviewed: Yes: I reviewed the patient's lab results. Orders (Tests/Meds): ED MEDICATIONS Discontinued Medications Generic Name Dose Route Start Last Admin Trade Name Freq PRN Reason Stop Dose Admin Methocarbamol 1,000 mg 08/13/21 21:00 Methocarbamol 500mg Tablet PO 09/12/21 20:59 BID ZARINA Methocarbamol 1,000 mg 08/13/21 18:03 08/13/21 18:04 Methocarbamol 500mg Tablet PO 09/12/21 18:02 1,000 mg BID ZARINA Administration Morphine Sulfate 4 mg 08/13/21 16:50 08/13/21 17:21 Morphine 4mg/Ml Syringe IV 08/13/21 16:51 Not Given ONCE ONE Morphine Sulfate 4 mg 08/13/21 17:22 08/13/21 17:24 Morphine 4mg/Ml Syringe IM 08/13/21 17:23 4 mg ONCE ONE Administration Medical Decision Narrative: Patient is an 86-year-old male with past medical history of chronic back pain, bilateral hip repairs presenting to the ED after a fall. Patient is awake, alert, not in acute distress. Patient is medically stable, afebrile. Patient's physical exam is remarkable for tenderness to palpation of the mid lumbar spine. Differential includes but not limited to hip fracture, lumbar fracture. Given this x-rays of the pelvis, bilateral hips is performed, CT of the thoracic and lumbar spine is performed. CTs are remarkable for a L1 acute fracture. X-rays are negative for any acute fractures, all hardware is in place. The L1 fracture is discussed with the patient who states that he has had multiple lumbar fractures prior and he is not a surgical candidate. Patient is offered a transfer to a trauma center where spinal surgery is available. Patient states that he does not want to be transferred. He states that it he understands the risks and does not want surgery. Patient states at this point he would like some pain control. Patient is written for [facility]. Patient is already on chronic narcotics for which he will follow-up with his a pain doctor. Patient is given strict return precautions and follow-up instructions. General Adult HPI - General Chief complaint: Back Pain/Injury Stated complaint: [id number] fell injured both hips Time Seen by Provider: 08/13/21 18:05 Mode of Arrival: Ambulatory Limitations: No Limitations Description of Symptoms (Recalled from ER Triage Doc. by RN): TO ED PER PVT CAR WITH C/O LOWER BACK PAIN STATES FELL DOWN 3 STEPS WHILE CARRYING A WHEEL CHAIR DOWN 3 STEPS L
[2021-08-13 18:32] VITALS: BP 123/74; PULSE 78; RESP 16; TEMP 36.6; O2SAT 94
== END 2021-08-13 18:34 | disposition home or self-care (01) ==
PROVIDERS: Emergency Provider Emergency Medicine; PCP Internal Medicine Adolescent Medicine
DX: S32.019A Unspecified fracture of first lumbar vertebra, initial encounter for closed fracture (principal); W10.9XXA Fall (on) (from) unspecified stairs and steps, initial encounter; Y92.019 Unspecified place in single-family (private) house as the place of occurrence of the external cause; I25.10 Atherosclerotic heart disease of native coronary artery without angina pectoris; I48.0 Paroxysmal atrial fibrillation; J44.9 Chronic obstructive pulmonary disease, unspecified; I10 Essential (primary) hypertension; I25.2 Old myocardial infarction; Z99.81 Dependence on supplemental oxygen; Z96.641 Presence of right artificial hip joint; Z96.642 Presence of left artificial hip joint; Z88.0 Allergy status to penicillin; Z88.2 Allergy status to sulfonamides
CPT/HCPCS: 72128; 72131; 73502; 96372; 99284

== ENCOUNTER → 2021-12-29 10:56 | Outpatient (CLI) | payer OTHER, SELFPAY ==
[2021-12-29 11:15] LABS: Microscopic, Urine URINE MICROSCOPIC (MICROSCOPIC)
[2021-12-29 11:36] LABS: Appearance,Urine CLEAR (Clear); Bilirubin,Urine Negative (Negative); Blood, Urine Negative (Negative); Color,Urine DK YELLOW (Yellow); Glucose,Urine (UA) Negative (Negative); Ketones,Urine Negative (Negative); Leukocyte Esterase,Urine Negative (Negative); Nitrate,Urine Negative (Negative); Protein,Urine TRACE (Negative); Urobilinogen,Urine 0.2 EU/dl (0.2)
[2021-12-29 11:49] LABS: Squamous Epithelial Cell,Urine Occasional #/hpf (0-5); WBC,Urine Occasional #/hpf (0-3)
== END ==
PROVIDERS: PCP Family Medicine Hospice and Palliative Medicine; Visit Provider Internal Medicine Adolescent Medicine
DX: R35.0 Frequency of micturition (principal)
CPT/HCPCS: 81001